=== PATIENT | female | born 1960 | race Caucasian/White ===

== ENCOUNTER 2022-07-03 11:05 | Emergency (ER) | payer BC, SELFPAY ==
--- NOTE | ~2022-07-03 | CT_ITS ---
EXAMINATION: CT BRAIN W/O DATE: 07/03/2022 11:50 INDICATION: Left facial droop TECHNIQUE: Computed tomography (CT) of the head was performed without intravenous contrast. The dose- length product was 605.33 mGy-cm. COMPARISON: No prior studies for comparison. FINDINGS: Normal brain parenchymal volume for age. Normal moscoso-white differentiation. No acute intrac ranial hemorrhage, infarction, mass or mass effect. No ventriculomegaly or midline shift. Midline sagittal images demonstrate a normal corpus callosum, c raniovertebral junction and sella turcica. Basilar cisterns are patent. Paranasal sinuses and mastoids are pneumatized. No depressed skull fractures. There are small partial ly calcified scalp nodules, likely sebaceous cysts. IMPRESSION: 1. No acute intracranial abnormality. Reviewed, dictated and finalized at location A. [facility]
--- NOTE | 2022-07-03 11:17 | ED.NEUROSD ---
HPI - Neuro Symptoms/Deficit General Chief Complaint: Neuro Symptoms/Deficit Stated Complaint: daksha Quezada side of face-possible stroke Time Seen by Provider: 07/03/22 11:15 History of Present Illness HPI Narrative: 61-year-old female patient presents to ER with complaints of facial droop on the left side upon waking up this morning. Patient states that for last week she has had some discomfort in the back of the head which she thought where her sinuses. She has had mild cough but no obvious runny nose or fever or chills. She denies any current headache. 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 Her double vision from the 6th nerve palsy has resolved. Patient denies any focal weakness of the arms legs or speech difficulty. She denies any trouble ambulating. Patient is up-to-date on her COVID vaccine. No exposure to COVID or flu is known at this time. Patient's past medical history is positive for hypertension. She also smokes half a pack of cigarettes a day. Related Data Home Medications Medication Instructions Recorded Confirmed atorvastatin 40 mg tablet 40 mg PO DAILY 07/03/22 07/03/22 estradiol 1 mg PO DAILY 07/03/22 07/03/22 sertraline 100 mg tablet (Zoloft) 100 mg PO DAILY 07/03/22 07/03/22 Allergies Allergy/AdvReac Type Severity Reaction Status Date / Time Penicillins Allergy Other Verified 07/03/22 11:28 Review of Systems Review of Systems: All systems reviewed & are unremarkable except as noted in HPI and below Constitutional: Constitutional: Reports no additional constitutional complaints, Denies chills, Denies fatigue, Denies fever(s) and Denies weakness Eyes: Eyes: Reports no additional eye complaints ENT: Reports as per HPI, Denies dysphagia, Denies vertigo, Denies dizziness, Denies epistaxis, Denies nasal congestion and Denies sore throat Cardiovascular: Cardiovascular: Reports no additional cardiovascular complaints Respiratory: Respiratory: Reports no additional respiratory complaints Gastrointestinal: Gastrointestinal: Reports no additional gastrointestinal complaints Genitourinary: Genitourinary: Reports no additional female genitourinary complaints Musculoskeletal: Musculoskeletal: Reports no additional musculoskeletal complaints Integumentary/Breasts: Skin/Breast: Reports system reviewed and no additional complaints, except as docu Neurologic: Reports system reviewed and no additional complaints, except as documented Psychiatric: Psychiatric: Reports no additional psychiatric complaints Endocrine: Endocrine: Reports no additional endocrine complaints Hematologic/Lymphatic: Hematologic/Lymphatic: Reports no additional hematologic/lymphatic complaints Allergic/Immunologic: Allergic/Immunologic: Reports no additional allergic/immunologic complaints PMFSH Past Medical History Medical History Hypertension Exam Narrative: Alert female patient who appears her stated age and is in no acute distress. Her vital signs are noted to be positive for a blood pressure 161/91 and a pulse rate of 76. Respiratory rate is 18 and temperature is 36.6?. SpO2 is 98% on room air. nurse monitoring shows a normal sinus rhythm. HEENT: atraumatic head. Patient has an obvious left facial droop. Patient also has constant uncontrollable shake of the head which has been there chronically. Apparently patient gets Botox injections for the same. Pupils are midsize and equal and reactive to light. Patient does have some weakness around her left periorbital and perioral and muscles. Ear nose throat are normal. Neck is supple. No carotid bruits. Chest wall is nontender. Heart tones are regular. Breath sounds are clear bilaterally. No retractions are noted. Abdomen is soft and
[2022-07-03 11:18] VITALS: BP 161/91; PULSE 76; RESP 18; TEMP 36.6; O2SAT 98
--- NOTE | 2022-07-03 11:52 | ECG_ITS ---
Measurements Intervals [place] Rate: 65 P: 53 MO: 167 QRS: -9 QRSD: 78 T: 39 QT: 392 QTc: 410 Interpretive Statements SINUS RHYTHM LOW QRS VOLTAGE IN PRECORDIAL LEADS INFERIOR INFARCT, AGE INDETERMINATE ABNORMAL ECG NO PREVIOUS ECG AVAILABLE FOR COMPARISON Electronically Signed On 07-03-2022 15:15:49 [employer] by Genaro Garcia D.O.
--- NOTE | 2022-07-03 12:10 | PC.NURSE ---
Pt was unable to state what blood pressure she is on, states her doctor changed it recently but has not picked it up yet, wanted to finish her amlodipine first, which she has and has yet to hot die picker new medicine which she does not know the name of, states she has not taken any blood pressure meds for the last few days. Pt's son was in room with pt right after arrival to the ED, pt was requesting water, pt and family both were educated that she needed to wait until testing done, in case surgical procedure needed. Son walked out of the exam room yelling, demanding water for the patient, the son was told once again she needed to wait, the son became very aggressive, yelling, walked out, stating he'll get her a bottle of water from the car. The patient then became very upset, stated he has mental issues, and that she had to leave, was very tearful. Staff was able to calm the patient down and continue with treatment and testing, patient's son is now outside waiting in their car.
[2022-07-03 12:15] VITALS: BP 126/80; PULSE 66; RESP 18; O2SAT 96
[2022-07-03 12:29] LABS: Basophils Absolute Auto 0.09 K/mm3 (0.00-0.10); Basophils Percent Auto 0.9 % (0.0-1.0); Eosinophils Absolute Auto 0.28 K/mm3 (0.02-0.50); Eosinophils Percent Auto 2.7 % (1.0-6.0); Hematocrit 36.5 % (35.0-49.0); Hemoglobin 11.4 g/dL (12.0-15.0); Immature Granulocyte Absolute 0.05 K/mm3 (0.00-0.00); Immature Granulocyte Percent A 0.5 % (0.0-0.0); Lymphocytes Absolute Auto 2.62 K/mm3 (1.10-4.50); Lymphocytes Percent Auto 25.5 % (18.0-42.0); Mean Corpuscular HGB Conc 31.2 g/dL (32.0-36.0); Mean Corpuscular Hemoglobin 25.9 pg (27.0-31.0); Mean Platelet Volume 9.7 fl (9.2-11.8); Monocytes Absolute Auto 0.82 K/mm3 (0.10-0.90); Neutrophils Absolute Auto 6.4 K/mm3 (1.7-7.2); Neutrophils Percent Auto 62.4 % (50.0-70.0); Platelet Count Result 385 K/mm3 (150-420); Red Cell Distribution Width 15.8 % (11.6-14.4); White Blood Count 10.3 K/mm3 (4.8-10.8)
[2022-07-03 12:30] LABS: Add Urine Microscopic? YES; Bilirubin Urine Negative (Negative); Blood Urine Negative (Negative); Color Urine Yellow (Yellow); Glucose Urine UA Negative (Negative); Ketones Urine Trace (Negative); Leukocyte Esterase Ur Trace LEU/UL (Negative); Nitrate Urine Negative (Negative); Protein Urine Negative (Negative); Specific Grav Ur >= 1.030 (1.010-1.020); Urobilinogen Urine 0.2 mg/dL (0.2-1.0); pH Urine 5.5 (5.0-8.0)
[2022-07-03 12:41] LABS: Partial Thromboplastin Time 27.1 SEC (23.90-30.70)
[2022-07-03 12:46] LABS: Alanine Aminotransferase 22 U/L (14-59); Albumin Level 3.6 g/dL (3.4-5.0); Alkaline Phosphatase 78 U/L (46-116); Anion Gap 8 mmol/L (8-16); Aspartate Amino Transferase 18 U/L (15-37); Bilirubin,Total 0.2 mg/dL (0.00-1.00); Blood Urea Nitrogen 9 mg/dL (7-18); Calcium 8.6 mg/dL (8.5-10.1); Carbon Dioxide 27 mmol/L (21-32); Chloride 102 mmol/L (98-108); Estimated CRCL calculation 83 ml/min; Estimated Glomerular Filt Rate > 60; Glucose 103 mg/dL (70-99); Osmolality Calculated 282 mOsm/kg (285-295); Potassium 3.9 mmol/L (3.5-5.1); Sodium 137 mmol/L (136-145); Total Protein 7.7 g/dL (6.4-8.2)
[2022-07-03 12:56] LABS: Troponin I < 4.0 ng/L (0.00-60.4)
[2022-07-03 13:07] LABS: Appearance Urine Cloudy (Clear); Calcium Oxalate Crystals Urine Many /hpf; Squamous Epithelial Cell Urine Many /hpf (Few); WBC Urine 0-3 /hpf (0-3)
[2022-07-03 13:08] LABS: Bacteria Urine 4+ /hpf
[2022-07-03 13:10] VITALS: BP 131/73; PULSE 64; RESP 18; O2SAT 95
[2022-07-03 13:30] VITALS: BP 131/73; PULSE 64; RESP 16; TEMP 36.9; O2SAT 98
[2022-07-12 15:28] LABS: Glucose Point of Care 104 mg/dl (65-105)
== END 2022-07-03 13:53 | disposition home or self-care (01) ==
PROVIDERS: Emergency Provider Emergency Medicine; PCP Nurse Practitioner Family
DX: G51.0 Bell's palsy (principal); I10 Essential (primary) hypertension; F17.210 Nicotine dependence, cigarettes, uncomplicated; Z79.899 Other long term (current) drug therapy
CPT/HCPCS: 36415; 70450; 80053; 81001; 82948; 84484; 85025; 85610; 85730; 93005; 99284

== ENCOUNTER 2024-08-03 02:23 | Emergency (ER) | payer MEDICAID, SELFPAY ==
[2024-08-03] VITALS (19 sets, daily range): BP systolic 111–173; BP diastolic 55–98; PULSE 96–111; RESP 20–28; TEMP 36.4–37; O2SAT 88–100
--- NOTE | ~2024-08-03 | CT_ITS ---
EXAMINATION: CT abdomen pelvis w con DATE: 08/03/2024 03:22 INDICATION: Low abdominal pain. TECHNIQUE: Computed tomography (CT) of the abdomen and pelvis was performed with 100 mL Omnipaque 350 intravenous contrast. Automated exposure control and iterative reconstruction technique were employe d. The dose-length product was 1353.45 mGy-cm. COMPARISON: None. FINDINGS: The visualized portions of the lung bases demonstrate mild atelectasis. A calcified left maria a ng nodules and calcified left hilar lymph nodes are consistent with old granulomatous disease. No ple ural effusion. The heart size is normal. There are coronary artery calcifications. No pericardial eff usion. There is a small sliding hiatal hernia. There are changes of gastric bypass procedure. Calcifi cations in the liver and spleen are consistent with old granulomatous disease. There are changes of c holecystectomy. The pancreas and adrenal glands are normal. There are cysts in right kidney measuring up to 2.1 cm. There is a 2 mm stone in right kidney. There is a delayed left-sided contrast nephrogr am. There is moderate left hydronephrosis. There is a 4 mm stone in proximal left ureter. There is di verticulosis of the colon without evidence of diverticulitis. The appendix is normal. There are no di lated loops of bowel. There are no pathologically enlarged lymph nodes. There is no free intraperiton eal fluid. There is severe lumbar spondylosis and moderate thoracic spondylosis. IMPRESSION: 1. 4 mm stone in proximal left ureter with moderate left hydronephrosis. 2. 2 mm nonobstructing right kidney stone. Reviewed, dictated and finalized at location A. OR OPERATIONS ANALYST
--- OUTSIDE RECORDS SUMMARY | 2024-08-03 02:26 | XMS_ITS | Referral Summary ---
Author Organization [facility] Address [address] [place] [address] Care Team Providers Care Ssis Architect Name Role Phone Nguyen Heath NP Primary Care Provider [phone] Ismael Moy MD Unavailable [phone] Encounters Date Type Department Care Team Description 08/01/2024 Telephone [facility] Primary Care at [address] [address] Nguyen Heath NP 07/31/2024 Orders Only [facility] Primary Care at [address] [phone] Nguyen Heath NP Iron deficiency anemia secondary to inadequate dietary iron intake (Primary Dx) 07/30/2024 10:14 AM CLEAN ENERGY POLICY ANALYST - 07/30/2024 11:59 PM CLEAN ENERGY POLICY ANALYST Hospital Encounter [address] [address] Prediabetes; Primary hypertension; Mixed hyperlipidemia Discharge Disposition: Discharge to home or self care 07/30/2024 10:15 AM CLEAN ENERGY POLICY ANALYST Lab [facility] Outpatient Lab at [address] [address] Primary hypertension (Primary Dx) 07/30/2024 9:30 AM CLEAN ENERGY POLICY ANALYST Office Visit [facility] Primary Care at [address] [id number] Nguyen Heath NP Annual physical exam (Primary Dx); Dupuytren's contracture; History of meningioma of the brain; Depression with anxiety; Primary hypertension; Mixed hyperlipidemia; Prediabetes; Centrilobular emphysema (HCC); Visit for screening mammogram; Mixed obsessional thoughts and acts; Benign head tremor from Last 3 Months Allergies Active Allergy Reactions Criticality Noted Date Comments Codeine Vomiting Low 08/24/2016 Metronidazole Itching Low 02/25/2021 Penicillin G Rash Medium 08/24/2016 Penicillins Rash Medium Medications aspirin 81 mg enteric coated tablet Take 1 tablet (81 mg total) by mouth daily 30 tablet 11 01/30/20 22 Active betamethasone dipropionate (DEL-BETA) 0.05 % cream Apply topically 2 (two) times a day as needed for irritation or rash 45 g 1 11/23/19 23 Active Additional Information Patient not taking.Reported on 07/30/2024 diphenhydrAMINE 25 mg capsule Take 1 tablet/capsule (25 mg total) by mouth every 6 (six) hours as needed for itching Active atorvastatin (LIPITOR) 20 mg tabletIndications: Mixed hyperlipidemia Take 1 tablet (20 mg total) by mouth daily 90 tablet 3 09/26/19 24 Active amLODIPine-benazep riL (LOTREL) 10-40 mg per capsule TAKE 1 CAPSULE BY MOUTH DAILY 90 capsule 3 01/08/20 24 025 Active estradioL (ESTRACE) 1 mg tablet TAKE 1 TABLET(1 MG) BY MOUTH DAILY 90 tablet 04/09/20 24 Active FLUoxetine (PROzac) 20 mg capsule Take 1 capsule (20 mg total) by mouth daily 90 capsule 1 07/30/19 25 026 Active fluticasone propion-salmeteroL (ADVAIR DISKUS) 250-50 mcg/dose diskus inhaler Inhale 1 puff 2 (two) times a day Rinse mouth with water after use. Do not swallow. 1 each 1 07/30/19 25 Active albuterol HFA (ProAir HFA) 90 mcg/actuation inhaler Inhale 2 puffs every 4 (four) hours as needed for wheezing or shortness of breath General albuterol inhaler that is covered by insurance. 8.5 g 1 07/30/19 25 026 Active ferrous sulfate 325 mg (65 mg of elemental iron) tabletIndications: Iron Deficiency Anemia Take 1 tablet (325 mg total) by mouth 2 (two) times a day after breakfast and dinner 60 tablet 3 07/31/19 25 Active LORazepam (ATIVAN) 0.5 mg tablet Take 1 tablet (0.5 mg total) by mouth 3 (three) times a day as needed for anxiety 30 tablet 1 09/22/19 23 025 Discontin ued(Thera py completed ) amitriptyline (ELAVIL) 25 mg tablet Take 2 tablets (50 mg total) by mouth nightly 180 tablet 1 11/23/19 23 025 Discontin ued(Patie nt Reported) albuterol HFA (ProAir HFA) 90 mcg/actuation inhaler Inhale 2 puffs every 4 (four) hours as needed for wheezing or shortness of breath General albuterol inhaler that is covered by insurance. 8.5 g 1 09/26/19 24 025 Discontin ued(Reord er) sertraline (ZOLOFT) 100 mg tablet Take 0.5 tablets (50 mg total) by mouth daily 45 tablet 1 09/26/19 24 025 Discontin ued(Thera py completed ) zolpidem CR (AMBIEN CR) 6.25 mg CR tabletIndications: Insomnia Take 1 tablet (6.25 mg total) by mouth nightly as needed for sleep 30 tablet 5 09/26/19 24 025 Discontin ued(Patie nt Reported) mupirocin (BACTROBAN) 2 % creamIndications:p eritoneal dialysis catheter care Apply topically 3 (three) times a day 30 g 09/26/19 24 025 Discontin ued(Patie nt Reported) fluticasone furoate-vilanteroL (Breo Ellipta) 200-25 mcg/dose diskus inhaler Inhale 1 puff daily Rinse mouth with water after use. Do not swallow. 28 each 5 09/26/19 24 025 Discontin ued(Thera py completed ) mupirocin (BACTROBAN) 2 % ointmentIndication s:Impetigo Apply topically 3 (three) times a day 22 g 09/26/19 24 025 Discontin ued(Amie nt Reported) Active Problems Problem Noted Date Diagnosed Date Centrilobular emphysema 07/30/2024 Assessment & Plan (07/30/2024 10:06 AM CLEAN ENERGY POLICY ANALYST): Went off daily inhaler due to cost. Restart advair. Continue albuterol prn History of meningioma of the brain 07/30/2024 Assessment & Plan (07/30/2024 10:05 AM CLEAN ENERGY POLICY ANALYST): Last MRI was 2022. Will order repeat MRI brain for surveillance she continues to have headaches, posterior/ occipital daily Dupuytren's contracture 07/30/2024 Assessment & Plan (07/30/2024 10:05 AM CLEAN ENERGY POLICY ANALYST): Left , 5th finger - referral to hand surgery, [place] Mixed obsessional thoughts and acts 07/30/2024 Assessment & Plan (07/30/2024 10:21 AM CLEAN ENERGY POLICY ANALYST): OCD actions have worsened per patient. States she has been on sertraline for over 25 years. Will discontinue sertraline having her decrease by 50 mg weekly. At the same time I will start her on fluoxetine 20 mg once daily. Have her follow-up in 4-6 weeks for med check Impetigo 09/26/2023 Assessment & Plan (09/26/2023 2:01 PM CDT): Gave her Septra b.i.d. for 10 days. Also gave her mupirocin to use topically. I asked her to contact me for lack of improvement in symptoms and rash Hormone replacement therapy (HRT) 03/02/2023 Assessment & Plan (03/02/2023 11:13 AM CDT): Risks and benefits of hormone replacement (HRT) for vasomotor symptoms related to menopause discussed. Patient aware risks associated with HRT include increased risk of blood clots, heart attack, stroke, and increased risk of breast cancer. As she has been on for 10 years it is my recommendation we start to try and wean. Plan to break 1 mg tab in half to .5 mg She was receptive to this plan and will update me with any concerns of return of symptoms. Family history of colon cancer in mother 023 Family history of colon cancer 11/24/2022 Personal history of colonic polyps 11/24/2022 Annual physical exam 11/24/2022 Assessment & Plan (07/30/2024 10:21 AM CLEAN ENERGY POLICY ANALYST): This was originally a physical. Health maintenance reviewed with her. Mammogram ordered. Referrals placed. Labs ordered Assessment & Plan (02/20/2023 10:29 AM CDT): -Recommended: Healthy diet. Avoiding junk food/fast food. -30 minutes of exercise most days of the week. Increase to 45 minutes for weight loss. Immunizations: Recommended Pneumovax 20, updated today, she will check her insurance on Shingrix increase physical activity, continue present plan, call if any problems Follow-up in 1 year. 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 We can do a slums exam at the next office visit. But we did discuss today that these medications may be a contributing factor Moss's palsy 07/20/2022 Assessment & Plan (02/20/2023 10:31 AM CDT): Improving. Having a lot less mouth through. Still having periodic headaches. She is going to go see her eye doctor about her vision changes in her left eye Assessment & Plan (11/22/2022 12:17 PM CDT): Improved. Specialist did not believe she had Kareem Webb, but has Moss's Palsy. She needs updated referral to Dr. De La Cruz. Assessment & Plan (08/18/2022 12:20 PM CLEAN ENERGY POLICY ANALYST): She is neurology follow-up next week with Dr. Reyes. Will refer to [facility] Dr. De La Cruz, ENT specialist, Assessment & Plan (07/20/2022 3:33 PM CLEAN ENERGY POLICY ANALYST): This is a new problem. Having quite a bit of pain around ear and back of head. She is already finished 60 mg of prednisone for 10 days and Valtrex. Will do another Medrol Dosepak. Start Lyrica 75 mg b.i.d.. Labs as ordered. At time of dictation her white count came back over 19 with elevated neutrophils. So we started doxycycline as well. She has contacted her neurologist and will make a follow-up appointment with him. Prediabetes 07/20/2022 Assessment & Plan (09/26/2023 1:59 PM CDT): Last A1c was 6%. Order given for labs at external lab to recheck. Assessment & Plan (11/22/2022 12:35 PM CDT): Stable. Continue to monitor hemoglobin A1c. Will repeat it in January with follow-up visit/ physical Assessment & Plan (07/20/2022 3:37 PM CLEAN ENERGY POLICY ANALYST): Stable. Recheck A1c Class 2 obesity with body ma ss index (BMI) of 36.0 to 36.9 in adult 07/20/2022 Assessment & Plan (11/22/2022 12:38 PM CDT): BMI Follow-up includes: exercise counseling. Assessment & Plan (07/20/2022 3:38 PM CLEAN ENERGY POLICY ANALYST): BMI Follow-up includes: nutrition counseling. Meningioma, cerebral 02/23/2022 Assessment & Plan (02/23/2022 12:06 PM CDT): MRI reviewed. I encouraged patient to let Dr. Liu know that her MRI has been done and results are available in epic. Also let him know that she is having more vision changes in the right as well. I also recommended that if she would have any new concerning symptoms such as loss of function or loss of eyesight that I would recommend that she go to [facility] if she can transfer there Acute intractable headache 01/28/2022 Assessment & Plan (02/01/2022 4:10 PM CDT): Try using ibuprofen instead of tylenol. May use ice/heat applied to side of head when you have the intense pain. Pt stated tramadol did not help with pain. MRI with contrast ordered. Referral to Dr. Amy shaw at [facility] Referral to ophthalmology Continue on increased losartan 100mg daily. Keep bp diary, but don't dave it. Check in the am and pm or if you feel weird . Pt to f/u with Nguyen next week Benign head tremor 06/22/2021 Assessment & Plan (07/30/2024 10:20 AM CLEAN ENERGY POLICY ANALYST): Head tremor is not new. Documented back to 2020. She does not think that it is worsened Assessment & Plan (06/22/2021 10:52 AM CLEAN ENERGY POLICY ANALYST): Will refer back to Neurology for new symptom of head tremor Gastroesophageal reflux disease 12/15/2020 Tubular adenoma of colon 12/15/2020 Family history of breast cancer in mother 2019 Arthritis of right acromioclavicular joint 05/27 Overview (05/27/2019): Added automatically from request for surgery [id number] Mixed hyperlipidemia 10/04/2018 Assessment & Plan (09/26/2023 1:59 PM CDT): Lipid abnormalities are stable, reviewed previous lipid levels in [facility]. Pharmacotherapy as ordered. Order for lipid panel was given today to be obtained. Pt voiced understanding of lab drawn and continuation of current medication regimen. Assessment & Plan (02/20/2023 10:31 AM CDT): Labs recently done last week. These were reviewed with her. Lipid panel is stable. Continue Lipitor 20 mg once daily. Assessment & Plan (11/22/2022 12:34 PM CDT): Continue Lipitor 20 mg once daily. Repeat labs in 3 months when I see her for annual physical in January Assessment & Plan (07/20/2022 3:21 PM CLEAN ENERGY POLICY ANALYST): Lipid abnormalities are stable, reviewed previous lipid levels in [facility]. Pharmacotherapy as ordered. Order for lipid panel was given today to be obtained. Pt voiced understanding of lab drawn and continuation of current medication regimen. Assessment & Plan (01/10/2022 11:39 AM CDT): Lipid abnormalities are stable, reviewed previous lipid levels in [facility]. Pharmacotherapy as ordered. Order for lipid panel was given today to be obtained. Pt voiced understanding of lab drawn and continuation of current medication regimen. Assessment & Plan (06/22/2021 11:04 AM CLEAN ENERGY POLICY ANALYST): Lipid abnormalities are stable. Pharmacotherapy as ordered. Lipids will be reassessed in 6 months. Assessment & Plan (12/08/2020 10:05 AM CDT): Lipid abnormalities are stable, reviewed previous lipid levels in [facility]. Pharmacotherapy as ordered. Order for lipid panel was given today to be obtained. Pt voiced understanding of lab drawn and continuation of current medication regimen. Assessment & Plan (08/20/2020 9:13 AM CLEAN ENERGY POLICY ANALYST): Lipid abnormalities are stable. Pharmacotherapy as ordered. Lipids will be reassessed in 6 months. Assessment & Plan (12/23/2019 1:50 PM CDT): Lipid abnormalities are stable. Pharmacotherapy as ordered. Lipids will be reassessed in 6 months. Assessment & Plan (05/13/2019 11:21 AM CLEAN ENERGY POLICY ANALYST): Last lipid panel 09/2018 and was WNL. Continue currently medication, lipitor 20mg. Tolerating ok. F/u 6 months Assessment & Plan (10/08/2018 9:49 AM CDT): Due for repeat lab work Basal ganglia degeneration with calcification Assessment & Plan (05/07/2018 1:59 PM CLEAN ENERGY POLICY ANALYST): Basal ganglia calcification seen on MRI - will refer to neurology for evaluation TIA (transient ischemic attack) 05/02/2018 Assessment & Plan (02/13/2022 6:07 PM CDT): Continue risk factor reduction. Continue atorvastatin. Work on diet, increase exercise, weight reduction. Will be scheduling f/u with Dr. Reyes, neurology Assessment & Plan (08/20/2020 9:14 AM CLEAN ENERGY POLICY ANALYST): History of. Remains on statin Assessment & Plan (05/02/2018 1:32 PM CLEAN ENERGY POLICY ANALYST): Hx htn, tobacco use (cigarettes) Differential includes TIA, CVA, migraines, tumor, EKG shows NSR, no change from previous EKG's. Labs as ordered. CT head as soon as can be preauth and scheduled Carotid US Chronic right-sided thoracic back pain 8 Assessment & Plan (05/02/2018 10:56 AM CLEAN ENERGY POLICY ANALYST): Has had for 9 months, points to one specific area, right lower lung area, states pressure over area makes it feel a little better. History of smoking 05/02/2018 Assessment & Plan (01/10/2022 5:09 PM CDT): Quit 1 1/2 years ago Has current bronchial cough. Gave albuterol inhaler to keep on hand, use prn. Will call if symptoms worsen Assessment & Plan (12/08/2020 10:08 AM CDT): Pt quit last April History of nonmelanoma skin cancer 10/02/2017 Seasonal allergic rhinitis 02/09/2017 Assessment & Plan (11/22/2022 12:32 PM CDT): Struggling with allergies. She is having some sinus headaches. We discussed [id number] medication such as Claritin D from the pharmacist and she may add Tylenol with that.. Assessment & Plan (12/23/2019 1:51 PM CDT): Will try adding singulair at bedtime and fluticasone nasal spray by rx, or may buy otc. Can try switching to zyrtec otc as well. Assessment & Plan (10/03/2017 10:37 AM CDT): Will treat for sinusitis today. Renew flonase. Try patanol for eye irritation. Also recommended otc eye drops for dry eye. Assessment & Plan (02/09/2017 10:17 AM CDT): May add claritin and fluticasone nasal spray once daily. 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 Has been stable. Will recheck CBC with labs Assessment & Plan (12/23/2019 1:49 PM CDT): Will recheck CBC. Pt states she is going to wait on labs as she doesn't have insurance but is hoping to get some later this year Assessment & Plan (05/13/2019 11:20 AM CLEAN ENERGY POLICY ANALYST): Using iron patches from the Internet. Will recheck cbc and iron panel today Assessment & Plan (12/10/2018 9:55 AM CDT): Continue oral iron. Will recheck iron panel and cbc today Assessment & Plan (10/08/2018 9:49 AM CDT): Recheck iron panel and cbc. Assessment & Plan (02/09/2017 10:06 AM CDT): Iron upsets her stomach and she doesn't take it. She tries to make up for it in diet. Primary hypertension 03/14/2013 Overview (09/30/2016): Hypertension Assessment & Plan (09/26/2023 1:59 PM CDT): Stable/ Improved. Blood pressure is adequately controlled on current medication. We will not make any medication changes today. Will have her follow-up in 6 months for continued monitoring and management Assessment & Plan (07/20/2022 3:21 PM CLEAN ENERGY POLICY ANALYST): Stable/ Improved. Blood pressure is adequately controlled on current medication. We will not make any medication changes today. Will have her follow-up in 6 months for continued monitoring and management Assessment & Plan (02/23/2022 12:03 PM CDT): Continue losartan 100 mg. Increase amlodipine to 10 mg once daily. Continue monitoring blood pressure and send me readings through my chart next week. Assessment & Plan (02/13/2022 6:09 PM CDT): Add amlodipine 5mg at bedtime. Continue to monitor blood pressure at home. F/u 1 month for recheck with home blood pressures Assessment & Plan (02/01/2022 4:11 PM CDT): Try using ibuprofen instead of tylenol. May use ice/heat applied to side of head when you have the intense pain. Pt stated tramadol did not help with pain. MRI with contrast ordered. Referral to Dr. Amy shaw at [facility] Referral to ophthalmology Continue on increased losartan 100mg daily. Keep bp diary, but don't dave it. Check in the am and pm or if you feel weird . Pt to f/u with Nguyen next week Assessment & Plan (01/10/2022 11:39 AM CDT): Stable/ Improved. Blood pressure is adequately controlled on current medication. We will not make any medication changes today. Will have her follow-up in 6 months for continued monitoring and management Assessment & Plan (06/22/2021 10:52 AM CLEAN ENERGY POLICY ANALYST): Stable/ Improved. Blood pressure is adequately controlled on current medication. We will not make any medication changes today. Will have her follow-up in 6 months for continued monitoring and management Assessment & Plan (12/08/2020 10:05 AM CDT): Stable/ Improved. Blood pressure is adequately controlled on current medication. We will not make any medication changes today. Will have her follow-up in 6 months for continued monitoring and management Assessment & Plan (08/20/2020 9:13 AM CLEAN ENERGY POLICY ANALYST): Stable on current medications. We will try to have her obtain labs if she is able to get insurance by later this year. Assessment & Plan (12/23/2019 1:50 PM CDT): Blood pressure is adequately controlled on current medication. We will not make any medication changes today. Will have her follow-up in 6 months for continued monitoring and management Assessment & Plan (05/13/2019 11:20 AM CLEAN ENERGY POLICY ANALYST): Hypertension is improving with treatment. Regular aerobic exercise. Stop smoking. Blood pressure will be reassessed at the next regular appointment. Assessment & Plan (12/10/2018 9:53 AM CDT): Hypertension is improving with treatment. Continue current medications. Blood pressure will be reassessed 6 months. Assessment & Plan (10/08/2018 9:47 AM CDT): Hypertension is worsening. Medication changes per orders. Blood pressure will be reassessed 2 months - she will be returning to area end of November. will have her return to recheck BP Increase Losartan to 50mg daily. Assessment & Plan (10/03/2017 10:36 AM CDT): Hypertension is improving with treatment. Continue current medications. Blood pressure will be reassessed at the next regular appointment. Assessment & Plan (02/09/2017 10:16 AM CDT): Blood pressure is running on lower side. We will try her without chlorthalidone and she checks her blood pressures at home. I advised she call for readings over 140/90 on a regular basis. Recheck BP in 1 month Depression with anxiety 02/07/2013 Overview (09/28/2016): Anxiety Assessment & Plan (07/30/2024 10:22 AM CLEAN ENERGY POLICY ANALYST): Depression is controlled. Anxiety is worsening. We are changing out the sertraline for fluoxetine and having her follow up in 4-6 weeks Assessment & Plan (02/20/2023 10:29 AM CDT): Improving on current medication. Continue sertraline 100 mg as ordered. May follow up in 6 months Assessment & Plan (08/18/2022 12:24 PM CLEAN ENERGY POLICY ANALYST): Improved. Continue sertraline 150 mg once daily. Assessment & Plan (07/20/2022 3:26 PM CLEAN ENERGY POLICY ANALYST): Worsening. Will increase sertraline to 150 mg once daily. Referral to psychiatry Assessment & Plan (01/10/2022 11:37 AM CDT): Will increase zoloft to 100mg daily. Gave suicide hotline number [phone]. Has gone to counseling in the past. Hx of OCD. Last time she went to counseling was 5 years ago. Contracts for safety. Encouraged to call if any problems/concerns. Will have her f/u in 4 weeks for recheck Assessment & Plan (08/20/2020 9:14 AM CLEAN ENERGY POLICY ANALYST): Currently stable on sertraline and quetiapine. Will continue current medications and have her follow-up in 6 months Assessment & Plan (05/13/2019 11:21 AM CLEAN ENERGY POLICY ANALYST): Continue zoloft and seroquel. Assessment & Plan (10/08/2018 9:48 AM CDT): Continue zoloft. We will add seroquel at bedtime to help with sleep. Assessment & Plan (10/03/2017 10:38 AM CDT): Has reduced down to 50mg daily. Doing well on that dose. Continue zoloft at 50mg. f/u 6 months Assessment & Plan (03/09/2017 10:54 AM CDT): Doing well with zoloft 100mg daily. She will f/u 6 months and as needed. She plans to continue traveling with her in the over the winter. Assessment & Plan (02/09/2017 10:16 AM CDT): Increase zoloft to 100mg daily. F/u 1 month for recheck. Eczema 07/28/2012 Insomnia 07/06/2012 Overview (07/14/2022): ambien serokevinl Assessment & Plan (09/26/2023 1:58 PM CDT): Stable/improved with Ambien. Will continue current medications. Assessment & Plan (02/20/2023 10:30 AM CDT): This is a chronic problem. States she had taken Restoril many years ago and realize that it was not helpful at all. She wants to try Ambien which we would also discussed. Will start with Ambien CR 6.25 mg nightly. I told her it does come in a 12 mg dose as well. Will start with number 30 and she can call for a refill. Assessment & Plan (11/22/2022 12:27 PM CDT): Ongoing, chronic: I had given her Restoril at the last office visit. He is currently on amitriptyline 25 mg 2 tablets at bedtime. We discussed using both verses trialing Restoril. The amitriptyline has not been helping very much for sleep. Using both may be too sedating. Patient voiced understanding. Will have her follow-up in 3 months Assessment & Plan (08/18/2022 12:20 PM CLEAN ENERGY POLICY ANALYST): Will refer to Sleep Medicine. Patient denies snoring but has frequent wakening. Will try Restoril 7.5 mg at bedtime. May continue amitriptyline 50 mg at bedtime. Assessment & Plan (12/23/2019 1:49 PM CDT): Chronic. Improving with seroquel. Will continue seroquel. Assessment & Plan (12/10/2018 9:54 AM CDT): Continue seroquel. Doing well Assessment & Plan (10/08/2018 9:48 AM CDT): Add seroquel at bedtime to help with sleep. Discussed dosage. She tried 200mg. I told her that seemed a little high as a starting dose. We will start at 100mg at bedtime. F/u end of November for recheck. Resolved Problems Problem Noted Date Diagnosed Date Resolved Date Simple chronic bronchitis 11/22/2022 Assessment & Plan (09/26/2023 2:26 PM CDT): History smoking. She is more difficulties with chronic cough and shortness of breaths seasonally. She restarts the Breo inhaler during the spring. Use albuterol p.r.n.. Renewed both today. Assessment & Plan (11/22/2022 12:34 PM CDT): Differential includes chronic bronchitis, GERD, DIANA inhibitor cough. She states the cough is dry and started last August. We started the DIANA inhibitor last February. She believes it is more allergy related. Patient is a former smoker as well. We have not had a PFT done. Plan: She does have an albuterol inhaler and states it does help when she uses it. So we will trial starting a steroid inhaler such as Breo Ellipta once daily. May continue albuterol p.r.n. Double vision 01/28/2022 11/22/2022 Assessment & Plan (02/01/2022 4:11 PM CDT): Try using ibuprofen instead of tylenol. May use ice/heat applied to side of head when you have the intense pain. Pt stated tramadol did not help with pain. MRI with contrast ordered. Referral to Dr. Amy shaw at [facility] Referral to ophthalmology Continue on increased losartan 100mg daily. Keep bp diary, but don't dave it. Check in the am and pm or if you feel weird . Pt to f/u with Nguyen next week Morbid obesity with BMI of 40.0-44.9, adult 01/10/2022 07/20/2022 Assessment & Plan (02/13/2022 6:00 PM CDT): BMI Follow-up includes: exercise counseling. Assessment & Plan (02/01/2022 7:35 AM CDT): HPI: Condition is not at/near goal goal BMI <30 A&P: Healthy, high-protein, lower carbohydrate, lower fat lifestyle and exercise for 150min/week recommended Recommend tracking everything you put in your mouth on an geni like Buzzni Lower carb substitutions: [employer] carries a zero net carb bread If you are looking for whole potatoes, like to use in soup or new potato shape/flavor, radishes are a great replacement If you are looking for mashed potatoes, riced cauliflower in the frozen bag section are a great replacement For pasta, try using zucchini noodles, lay them out on a cookie sheet and pat dry with a tea towel to try to remove as much moisture as possible. Heat your pasta sauce on the stove and put the noodles in for 30-45 seconds. If you leave them in much longer they will become mushy [place] and/or coconut flour instead of regular flour For pizza dough, try fathead pizza dough recipe online. To get a crispy crust, bake on one side for 8-12 min, then flip over and bake on the other side for 8-12 min, then put toppings on and bake until the cheese on top of pizza melts chaffles recipe online For ice cream, try the brand Enlightened To replace coffee creamer and make it low carb, use heavy creamer with sugar free Torani sweetener For chips, try Whisps or pork rinds For yogurt, try Two Good uzbek yogurt Use Leander for recipe ideas. Type in low carb... Hand Measurements: A fist or cupped hand = 1 cup 1 cup = 1 -2 servings of fruit juice 1 oz. of cold cereal 2 oz. of cooked cereal, rice or pasta 8 oz. of milk or yogurt A thumb = 1 oz. of cheese Consuming low-fat cheese helps you meet the required servings from the milk, yogurt and cheese group. 1 oz. of low-fat cheese counts as 8 oz. of milk or yogurt. Handful = 1-2 oz. of snack food Thumb tip = 1 teaspoon Keep high-fat foods, such as peanut butter and mayonnaise, at a minimum. One teaspoon is equal to the end of your thumb, from the knuckle up. Three teaspoons equals 1 tablespoon. Palm = 3 oz. of meat Choose lean poultry, fish, shellfish and beef. One palm size portion equals 3 oz. for an adult and 1 -2 oz. for a child under 5. 1 tennis ball or a fist= 1/2 cup of fruit and vegetables Healthy diets include a variety of colorful fruits and vegetables every day. The secret to serving size is in your hand. Snacking can add up. Remember, 1 handful equals 1 oz. of nuts and small candies. For chips and pretzels, 2 handfuls equals 1 oz. Because hand sizes vary, compare your fist size to an actual measuring cup. Assessment & Plan (01/10/2022 5:07 PM CDT): BMI Follow-up includes: exercise counseling. Chest pain 09/11/2021 01/10/2022 Assessment & Plan (09/11/2021 11:18 AM CDT): Chest wall pain, likely pleurisy. Will start steroid burst. Tramadol short term for pain. Pt is aware of warning signs of cardiac origin for which to go to ER. EKG shows NSR, Call for lack of improvement Hiatal hernia 01/15/2021 06/22/2021 Assessment & Plan (01/15/2021 3:47 PM CDT): The patient has a small sliding type hernia seen on CT scan. Because of her prior gastric bypass I am going to send her back down town where she had that surgery in the past. The surgery was about 14 years ago and she cannot quite remember who performed it. They may just need to close the crural defect but if any kind of revisional work needs to be done were just not set up for that here. The patient is in understanding and. Epigastric pain 12/15/2020 06/22/2021 Nausea and vomiting 12/15/2020 06/22/20 21 History of colonoscopy with polypectomy 12/15/2020 01/10/2022 Diarrhea 12/15/2020 06/22/2021 History of hernia repair 12/15/2020 Body mass index (BMI) of 39.0-39.9 in adult 12/15/2020 06/22/2021 Gastroesophageal reflux dise ase without esophagitis 12/08/2020 06/22/2021 Assessment & Plan (12/08/2020 10:09 AM CDT): Continue nexium. Refer to GI. Colonoscopy scheduled in Feb. Will refer for possible EGD at same time Family history of colon cancer in mother 12/04/2020 06/22/2021 Overview (12/04/2020): Added automatically from request for surgery [id number] Family history of colon canc er requiring screening colonoscopy 12/04/2020 06/22/2021 Overview (12/04/2020): Added automatically from request for surgery [id number] Hx of colonic polyps 12/04/2020 022 Overview (12/04/2020): Added automatically from request for surgery [id number] Intractable migraine with status migrainosus 0 06/22/2021 Assessment & Plan (02/17/2020 1:39 PM CDT): Given 60mg toradol IM in office and pt had much relief of her headache and neck pain. We had a conversation about her previous MRI results and future expectations. I told her that this headache is not related to the white matter changes seen on her previous MRI. Pt and her did recall that she bumped her head on a cabinet in late November. She recalled that it knocked her quite hard. I believe it's possible she has a mild concussion and subsequent migraine that has been exacerbated by her stress and anxiety over thinking that this is related to her MrI changes. Pt seemed much relieved by the end of the visit. I gave her toradol po with directions for use. I also gave her a short steroid taper to see if this helps with neck pain and dose. I asked her to call me if headache continues, does not improve. Impingement syndrome of right shoulder 05/27/2019 12/23/2019 Overview (05/27/2019): Added automatically from request for surgery [id number] Biceps tendinitis of right upper extremity 05/27/2019 12/23/2019 Overview (05/27/2019): Added automatically from request for surgery [id number] Mucopurulent chronic bronchitis 05/13/2019 12/23/2019 Assessment & Plan (05/13/2019 11:23 AM CLEAN ENERGY POLICY ANALYST): Will try doxycyline. If cough does not improve with a round of doxy, then discussed referral to e commerce retailer. Spell of generalized weakness 06/05/2018 01/10/2022 Vertigo 05/02/2018 08/20/2020 Acute cystitis with hematuria 02/28/2018 05/02/2018 Assessment & Plan (02/28/2018 10:02 AM CDT): Laboratory: Urine dipstick shows 2+ for hemoglobin, 2+ for leukocyte esterase and positive for nitrites. 1. Medications: ciprofloxacin 2. Maintain adequate hydration 3. Follow up if symptoms not improving, and prn. Pt mentioned after urine dip that she had been having urgency and frequency as well, which makes goes with UTI symptoms and urine dip. Will send for culture. Abnormal weight gain 10/03/2017 018 Assessment & Plan (10/03/2017 10:38 AM CDT): Check tsh today. Discussed salt intake. Possibly hidden in soup. Acute nonintractable headache 10/03/2017 12/10/2018 Assessment & Plan (10/03/2017 10:38 AM CDT): Due to allergies. Treat for sinusitis Acute non-recurrent frontal sinusitis 10/03/2017 02/28/2018 Assessment & Plan (10/03/2017 10:38 AM CDT): Treat with omnicef. May take otc sudafed as needed Cutaneous horn 10/02/2017 12/10/2018 Acute pain of left shoulder 06/05/2017 12/10/2018 Cervicalgia 06/05/2017 06/22/2021 Assessment & Plan (06/05/2017 2:29 PM CLEAN ENERGY POLICY ANALYST): Questioning that pain is radiating from her neck. She has an appointment pending with ortho on 06/20. I started her on diclofenac. She is to discontinue advil and aleve. May try flexeril. Discussed SE's, possible fatigue with flexeril. Tramadol for pain prn. Consider physical therapy, we'll let ortho see her first. Pt was agreeable with plan of care and f/u Recurrent ventral hernia 07/25/201603/2022 Overview (09/30/2016): Recurrent ventral hernia Assessment & Plan (12/08/2020 10:08 AM CDT): Having pain at previous surgery site - will refer back to surgery Hypokalemia 07/08/2015 08/20/2020 Overview (09/30/2016): Hypokalemia Assessment & Plan (02/28/2018 10:03 AM CDT): Hx hypokalemia. She was concerned since she was ill. She had labs drawn at [facility] in [facility] in [place]. We will try to obtain records. Reordered cbc, cmp today. Assessment & Plan (10/03/2017 10:37 AM CDT): Mild hypokalemia. Will recheck cmp today Assessment & Plan (02/09/2017 10:07 AM CDT): Has been trying to incoporate potassium rich foods in her diet. Likely due to chlorthalidone. We are going to try to stop the chlorthalidone today. Keratosis, senilis 02/23/2015 8 Skin neoplasm 01/03/2014 07/30/2024 Assessment & Plan (11/22/2022 12:16 PM CDT): HPI: History of basal cell carcinoma. She is a couple new lesions that she is found, 1 on her right forearm the 2nd on her left thigh. They both itch. Plan: I gave her some betamethasone cream for the itching. However will refer her back to Dermatology for evaluation and treatment of these lesions Actinic keratosis 01/03/2014 05/02/2018 Hernia of anterior abdominal wall 11/25/2013 09/02/2021 Overview (09/30/2016): Ventral hernia Right upper quadrant abdominal pain 04/15/2013 06/22/2021 Overview (09/30/2016): Right upper quadrant pain Assessment & Plan (12/08/2020 10:07 AM CDT): Hx multiple abdominal surgeries. Labs as ordered. Referral back to surgery Assessment & Plan (08/20/2020 9:18 AM CLEAN ENERGY POLICY ANALYST): Exam was negative. She no longer has a gallbladder. She believes it is muscular as it started after reaching for an object that was up high. She states that she will call us when she has insurance or if pain worsens for further workup Inflamed seborrheic keratosis 07/28/2012 06/22/2021 Immunizations Name Administration Dates Next Due Influenza, Quadrivalent, Spl it, Preservative Free, Intramuscular 06/22/2021,05/13/2019,03/23/2018,06/05 Influenza, Split 04/11/2013 Influenza, Unspecified 07/30/2024(Deferr ed: Patient Refused),07/30/2023(Deferred: Patient Refused),06/26/2023(Deferred: Patient Refused),07/30/2022(Deferred: Patient Refused),06/26/2022(Deferred: Patient Refused),02/23/2022(Deferred: Patient Refused),04/09/2020,03/26/2020(Deferre d: Patient Refused),03/26/2018 Moderna SARS-CoV-2 Monovalen t Vaccination (12+ YRS) 09/25/2020,08/28/2020 Pneumococcal Conjugate Pcv20 02/20/2023 Pneumococcal Polysaccharide PPV23 07/08/2015 Tdap 02/09/2022 Social History Tobacco Use Types Packs/Day Years Used Date Smoking Tobacco: Former Cigarettes 0.3 5 Smokeless Tobacco: Former Tobacco Cessation:Counseling Given: Not Answered Alcohol Use Standard Drinks/Week Comments No 0 (1 standard drink = 0.6 oz pur e alcohol) AUDIT-C Answer Date Recorded Q1: How often do you have a drink containing alcohol? Never 01/28/2022 Q2: How many drinks containi ng alcohol do you have on a typical day when you are drinking? Patient does not drink Q3: How often do you have si x or more drinks on one occasion? Never 01/28/2022 PHQ-2 Answer Date Recorded PHQ-2 Total Score (If total score is 3 or more points, staff should administer the PHQ-9) 0 07/30/2024 Personal Safety Answer Date Recorded Have you ever been in or are you currently in a harmful physical or emotional relationship or is someone making you feel afraid or unsafe? Denies 01/25/2023 Comments No Sex and Gender Information Value Date Recorded Sex Assigned at Not on file Legal Sex Female 7:18 AM CLEAN ENERGY POLICY ANALYST Gender Identity Not on file Sexual Orientation Straight 03/15/2021 1: 30 PM CDT Last Filed Vital Signs Vital Sign Reading Time Taken Comments Blood Pressure 114/84 07/30/2024 9:31 AM CLEAN ENERGY POLICY ANALYST Pulse 65 07/30/2024 9:31 AM CLEAN ENERGY POLICY ANALYST Temperature 36.8 C (98.2 F) 07/30/2024 9:31 AM CLEAN ENERGY POLICY ANALYST Respiratory Rate 16 07/30/2024 9:31 AM CLEAN ENERGY POLICY ANALYST Oxygen Saturation 99% 07/30/2024 9:31 AM CLEAN ENERGY POLICY ANALYST Inhaled Oxygen Concentration - - Weight 104.2 kg (229 lb 12.8 oz) 07/30/2024 9:31 AM CLEAN ENERGY POLICY ANALYST Height 165.1 cm (5' 5 ) 07/30/2024 9:31 AM CLEAN ENERGY POLICY ANALYST Body Mass Index 38.24 07/30/2024 9:31 AM CLEAN ENERGY POLICY ANALYST Plan of Treatment Not on file Medical Devices Implanted Type Area Woodwind Instrument Repairer Device Identifier Shelf Expiration Date Model / Serial / Lot Depuy Mitek [id number] Healix Advance Br Orthocord 4.5mm 3 [place] Suture Sterile Latex Free - [id number] Implanted:Qty: 1 on 06/05/2019 by Evangelist Rosales MD at [facility] Right: Shoulder Depuy Mitek 03/25/2022 [id number] / / [id number] [employer] Ar-[id number] Swivelock C 4.75mm 19.1mm Closed Eyelet Vent [place] Suture - [id number] Implanted:Qty: 1 on 06/05/2019 by Evangelist Rosales MD at [facility] Right: Shoulder [employer] 03/25/2021 [id number] / / [id number] Procedures Procedure Name Priority Date/Time Associated Diagnosis Comments EGFR Routine 07/30/2024 10:14 AM CLEAN ENERGY POLICY ANALYST Mixed hyperlipidemia DIFFERENTIAL AUTO Routine 07/30/2024 10:14 AM CLEAN ENERGY POLICY ANALYST Primary hypertension Mixed hyperlipidemia CBC WITH AUTO DIFFERENTIAL Routine 07/30/2024 10:14 AM CLEAN ENERGY POLICY ANALYST Primary hypertension Mixed hyperlipidemia COMPREHENSIVE METABOLIC PANEL Routine 07/30/2024 10:14 AM CLEAN ENERGY POLICY ANALYST Mixed hyperlipidemia LIPID PANEL Routine 07/30/2024 10:14 AM CLEAN ENERGY POLICY ANALYST Mixed hyperlipidemia THYROID FUNCTION CASCADE Routine 07/30/2024 10:14 AM CLEAN ENERGY POLICY ANALYST Primary hypertension HEMOGLOBIN A1C Routine 07/30/2024 10:14 AM CLEAN ENERGY POLICY ANALYST Prediabetes PAP AND HPV, REFLEX TO HPV GENOTYPES Routine 03/02/2023 10:43 AM CDT Well woman exam SCREENING MAMMOGRAM BILATERAL W TAWANDA Schedule Routine, Read Routine (OP Routine) 02/01/2023 1:15 PM CDT Screening mammogram, encounter for COLONOSCOPY 01/25/2023 8:36 AM CDT HEPATITIS C RNA, QUANTITATIVE, PCR Routine 05/27/2019 11:48 AM CLEAN ENERGY POLICY ANALYST Positive hepatitis C antibody test from Last 3 Months or Most Recently Relevant to Health Maintenance Results * eGFR (07/30/2024 10:14 AM CLEAN ENERGY POLICY ANALYST) eGFR >90 >=60 mL/min/1. 73 m2 Comment: Interpretive Data Reference Interval Normal >/= 90 mL/min/1.73m2 Mildly decreased* 60 - 89 mL/min/1.73m2 Mildly to moderately decreased 45 - 59 mL/min/1.73m2 Moderately to severely decreased 30 - 44 mL/min/1.73m2 Severely decreased 15 - 29 mL/min/1.73m2 Kidney Failure < 15 mL/min/1.73m2 *Relative to young adult level Estimated glomerular filtration rate is determined by the 2020 CKD-EPI equation recommended by the National Kidney Foundation (A Unifying Approach to GFR Estimation: Recommendations of the NKF-ASK Task Force on Reassessing the Inclusion of Race in Diagnosing Kidney Disease, JASN 2020). The CKD-EPI equation should not be used for patients with unstable renal function and has not been validated in children and those over 70. Current interpretive data was last reviewed 2021. Blood 07/30/2024 10:1 4 AM CLEAN ENERGY POLICY ANALYST 07/30/2024 3:17 PM CLEAN ENERGY POLICY ANALYST Nguyen Heath NP LAB BLOOD ORDERABLES Final Resul t [facility] [address] Department [place] [address] * (ABNORMAL) Differential, auto (07/30/2024 10:14 AM CLEAN ENERGY POLICY ANALYST) Neutrophil abs 5.3 1.5 - 6.5 K/cumm Imm gran abs 0.0 0.0 - 0.1 K/cumm [facility] Lymphocyte abs 2.4 0.8 - 3.3 K/cumm [facility] Monocyte abs 1.0(H) 0.2 - 0.8 K/cumm [facility] Eosinophil abs 0.2 0.0 - 0.5 K/cumm [facility] Basophil abs 0.1 0.0 - 0.1 K/cumm [facility] Neutrophil pct 58.9 % [facility] Comment: Interpretive Data Percent cell count reference ranges are not reported, since discordance with absolute values may lead to misinterpretation of CBC data. Current Interpretive Data was last revised on 2017. Imm gran pct 0.4 % [facility] Comment: Interpretive Data Percent cell count reference ranges are not reported, since discordance with absolute values may lead to misinterpretation of CBC data. Current Interpretive Data was last revised on 2017. Lymphocyte pct 26.1 % [facility] Comment: Interpretive Data Percent cell count reference ranges are not reported, since discordance with absolute values may lead to misinterpretation of CBC data. Current Interpretive Data was last revised on 2017. Monocyte pct 11.1 % [facility] Comment: Interpretive Data Percent cell count reference ranges are not reported, since discordance with absolute values may lead to misinterpretation of CBC data. Current Interpretive Data was last revised on 2017. Eosinophil pct 2.3 % [facility] Comment: Interpretive Data Percent cell count reference ranges are not reported, since discordance with absolute values may lead to misinterpretation of CBC data. Current Interpretive Data was last revised on 2017. Basophil pct 1.2 % [facility] Comment: Interpretive Data Percent cell count reference ranges are not reported, since discordance with absolute values may lead to misinterpretation of CBC data. Current Interpretive Data was last revised on 2017. Blood 07/30/2024 10:1 4 AM CLEAN ENERGY POLICY ANALYST 07/30/2024 3:08 PM CLEAN ENERGY POLICY ANALYST us Nguyen Heath NP LAB BLOOD ORDERABLES Final Resul t [facility] [address] Department [place] [address] * Thyroid Function [place] (07/30/2024 10:14 AM CLEAN ENERGY POLICY ANALYST) TSH 1.27 0.30 - 4.20 mcIUnit/mL Blood 07/30/2024 10:1 4 AM CLEAN ENERGY POLICY ANALYST 07/30/2024 3:08 PM CLEAN ENERGY POLICY ANALYST Nguyen Heath NP LAB BLOOD ORDERABLES Final Resul t Performing Organization Address City/[facility] Co de Phone Number [facility] [address] [address] * (ABNORMAL) CBC with auto differential (07/30/2024 10:14 AM CLEAN ENERGY POLICY ANALYST) WBC 9.0 3.8 - 9.9 K/cumm Hgb 9.9(L) 11.9 - 15.5 g/dL [facility] Hct 34.2(L) 35.6 - 45.5 % [facility] Plt 451(H) 150 - 400 K/cumm [facility] MPV 10.2 9.1 - 12.3 fL [facility] RBC 4.60 3.90 - 5.20 M/cumm [facility] MCV 74.3(L) 81.3 - 96.4 fL [facility] MCH 21.5(L) 27.1 - 33.3 pg [facility] MCHC 28.9(L) 32.3 - 35.7 g/dL [facility] RDW CV 17.9(H) 11.1 - 14.9 % [facility] RDW SD 47.4 35.7 - 48.1 fL [facility] NRBC abs 0.00 0.00 - 0.01 K/cumm [facility] Blood 07/30/2024 10:1 4 AM CLEAN ENERGY POLICY ANALYST 07/30/2024 3:08 PM CLEAN ENERGY POLICY ANALYST Nguyen Heath NP LAB BLOOD ORDERABLES Final Resul t Performing Organization Address City/[facility]/ZIP Co de Phone Number [facility] [address] [place] [address] * (ABNORMAL) Hemoglobin A1c (07/30/2024 10:14 AM CLEAN ENERGY POLICY ANALYST) Hgb A1C 5.9(H) 4.0 - 5.6 % Estimated Average Glucose 123 mg/dL [facility] Comment: The ADA recommends reporting an estimated Average Glucose (eAG) with all Hemoglobin A1c results using the equation derived from a study of 507 normal and diabetic adults. Minority populations were underrepresented and children were not included. (Diabetes Care 31:4586-9047, 2008). The eAG is not equivalent to a fasting glucose. Blood 07/30/2024 10:1 4 AM CLEAN ENERGY POLICY ANALYST 07/30/2024 3:08 PM CLEAN ENERGY POLICY ANALYST Nguyen Heath NP LAB BLOOD ORDERABLES Final Resul t [facility] [address] Department [place] [address] * (ABNORMAL) Lipid panel (07/30/2024 10:14 AM CLEAN ENERGY POLICY ANALYST) Cholesterol 212(H) 30 - 199 mg/dL Comment: Interpretive Data Ages < or = 19 years Acceptable: <170 mg/dL Borderline high: 170-199 mg/dL High: >or= 200 mg/dL Ages > or = 20 years Desirable: <200 mg/dL Borderline high: 200-239 mg/dL High: >or= 240 mg/dL Literature References: 1. Expert Panel on Integrated Guidelines for Cardiovascular Health and Risk Reduction in Children and Adolescents. Pediatrics 2011;128:S213 2. NCEP Expert Panel. Circulation 2004;110:227 Current Interpretive Data was last revised on 2018. Triglycerides 101 <=149 mg/dL [facility] Comment: Interpretive Data Ages < or = 9 years Acceptable: <75 mg/dL Borderline high: 75-99 mg/dL High: >or= 100 mg/dL Ages 10 to 20 years Acceptable: <90 mg/dL Borderline high: 90-129 mg/dL High: >or= 130 mg/dL Ages > or = 20 years Desirable: <150 mg/dL Borderline high: 150-199 mg/dL High: 200-499 mg/dL Very high: >or= 499 mg/dL Literature References: 1. Expert Panel on Integrated Guidelines for Cardiovascular Health and Risk Reduction in Children and Adolescents. Pediatrics 2011;128:S213 2. NCEP Expert Panel. Circulation 2004;110:227 Current Interpretive Data was last revised on 2018. HDL 70 >=40 mg/dL [facility] Comment: Interpretive Data Ages < or = 19 years Acceptable: >45 mg/dL Borderline low: 40-45 mg/dL Low: <40 mg/dL Ages > or = 20 years Desirable: >or= 60 mg/dL Low: <40 mg/dL Literature References: 1. Expert Panel on Integrated Guidelines for Cardiovascular Health and Risk Reduction in Children and Adolescents. Pediatrics 2011;128:S213 2. NCEP Expert Panel. Circulation 2004;110:227 Current Interpretive Data was last revised on 2018. LDL, calculated 124 <=129 mg/dL [facility] Comment: Interpretive Data Ages < or = 19 years Acceptable: <110 mg/dL Borderline high: 110-129 mg/dL High: >or= 130 mg/dL Ages > or = 20 years Optimal: <100 mg/dL Near optimal: 100-129 mg/dL Borderline high: 130-159 mg/dL High: >160 mg/dL Calculated using the Leonid LDL-C estimating equation. This equation was implemented on 2024. Prior to this date LDL-C was estimated using the Friedewald equation. Literature References: 1. Expert Panel on Integrated Guidelines for Cardiovascular Health and Risk Reduction in Children and Adolescents. Pediatrics 2011;128:S213 2. NCEP Expert Panel. Circulation 2004;110:227 3. Leonid Moya al. ALESSANDRA Cardiol. 2019October 24;5(5):540-548. doi: [email or web address] Current Interpretive Data was last revised on 2024. Non-HDL Cholesterol 142 mg/dL [facility] Comment: Interpretive Data Ages < or = 19 years Acceptable: <120 mg/dL Borderline high: 120-144 mg/dL High: >145 mg/dL Ages > or = 20 years When triglycerides are >200 mg/dL, Non-HDL cholesterol is a secondary target of therapy with treatment goals that are 30 mg/dL greater than the LDL cholesterol target. Literature References: 1. Expert Panel on Integrated Guidelines for Cardiovascular Health and Risk Reduction in Children and Adolescents. Pediatrics 2011;128:S213 2. NCEP Expert Panel. Circulation 2004;110:227 Current Interpretive Data was last revised on 2018. Chol/HDL ratio 3 [facility] Blood 07/30/2024 10:1 4 AM CLEAN ENERGY POLICY ANALYST 07/30/2024 3:08 PM CLEAN ENERGY POLICY ANALYST Nguyen Heath NP LAB BLOOD [place] [address] [address] Department [place] [address] * (ABNORMAL) Comprehensive metabolic panel (07/30/2024 10:14 AM CLEAN ENERGY POLICY ANALYST) Sodium 137 135 - 145 mmol/L Potassium, pl 3.9 3.3 - 4.9 mmol/L [facility] Chloride 102 97 - 110 mmol/L [facility] CO2 21(L) 22 - 32 mmol/L [facility] Anion gap 14 2 - 15 mmol/L [facility] BUN 10 6 - 25 mg/dL [facility] Creatinine 0.61 0.60 - 1.10 mg/dL [facility] Glucose 91 70 - 199 mg/dL [facility] Comment: Interpretive Data Fasting glucose >/= 126 mg/dl is diagnostic for diabetes. Fasting is defined as no caloric intake for at least 8 hours. Fasting glucose between 100 mg/dl to 125 mg/dl is diagnostic of prediabetes. In a patient with classic symptoms of hyperglycemia or hyperglycemic crisis, a random glucose >/= 200 mg/dl is diagnostic for diabetes. In the absence of unequivocal hyperglycemia, results should be confirmed by repeat testing. The classification and Diagnosis of Diabetes Diabetes Care 2021; 46: S19-S40. Current interpretive data was last revised 2022. Calcium 8.9 8.5 - 10.3 mg/dL [facility] Bilirubin, total 0.2 0.1 - 1.2 mg/dL [facility] Protein, pl 7.3 6.5 - 8.5 g/dL [facility] Albumin 4.1 3.5 - 5.0 g/dL [facility] Alk phos 75 40 - 130 Units/L [facility] ALT 18 7 - 45 Units/L [facility] AST 35 10 - 45 Units/L [facility] Blood 07/30/2024 10:1 4 AM CLEAN ENERGY POLICY ANALYST 07/30/2024 3:08 PM CLEAN ENERGY POLICY ANALYST us Nguyen Heath NP LAB BLOOD ORDERABLES Final Resul t [facility] [address] [place] [address] * Pap and HPV, reflex to HPV Genotypes (03/02/2023 10:43 AM CDT) CLINICAL INFORMATION: [facility] Comment:None given LMP [facility] Comment:NONE GIVEN Previous Pap [facility] Comment:NONE GIVEN Prev. Bx [facility] Comment:NONE GIVEN SOURCE: [facility] Comment:Cervix, Endocervix Pap, specimen adequacy [facility] Comment: Satisfactory for evaluation. Endocervical/transformation zone component present. HPV interp [facility] Comment: Cytology Results: Negative for intraepithelial lesion or malignancy. Senior Facilities Manager Que [facility] Comment: BKA, CT(ASCP) CT screening location: [place] [address] [place] [address] [facility] Comment: EXPLANATORY NOTE: The Pap is a screening test for cervical cancer. It is not a diagnostic test and is subject to false negative and false positive results. It is most reliable when a satisfactory sample, regularly obtained, is submitted with relevant clinical findings and history, and when the Pap result is evaluated along with historic and current clinical information. EFFECTIVE MAY 22, 2023, the version of ThinPrep you ordered, commonly known as manual ThinPrep, will be DISCONTINUED. An alternative form of ThinPrep, called ThinPrep Imaging, will continue to be available. For a copy of the client communication (TIS Client Letter) showing TIS test codes, see [email or web address], and navigate to [employer]>Physician Materials>TIS Client Letter. You can also call for test code assistance. Human papillomavirus DNA, High Risk E6/E7 Not Detected NOT DETECTED [employer] /Danika Chand [facility] Comment: Not Detected High Risk HPV types (16,18,31,33,35,39,45,51,52, 56,58,59,66,68) were not detected. Other HPV types which cause anogenital lesions may be present. The significance of the other types of HPV in malignant processes has not been established. Methodology: Real Time PCR Thin prep 03/02/2023 10:4 3 AM CDT 03/03/2023 2:36 AM CDT Tia Driscoll NITRATE OPERATOR LAB CYTOLOGY ORDERABLES Fin al Result [facility] [address] [place] [address] [employer]/Danika TamFormerly [facility] [address] [facility] [place] [address] * Screening Mammogram Bilateral [place] (02/01/2023 1:15 PM CDT) Anatomical Region Laterality Modality Breast Bilateral Mammography 02/01/2023 1:17 PM CDT Impressions 02/01/2023 1:17 PM CDT There is no mammographic evidence of malignancy. A 1 year screening mammogram is recommended. BI-RADS: 2 - Benign. The patient has been or will be contacted. The patient will be entered into a reminder system with a target due date of 1 year for her next mammogram. Electronically signed by: Christopher Lozano M.D. Narrative 02/01/2023 1:17 PM CDT EXAMINATION: SCREENING MAMMOGRAM BILATERAL W TAWANDA ORDERING HEALTHCARE PROVIDER: SELF SCREENING MAMMOGRAM HISTORY: Routine screening mammography. COMPARISON: 01/07/2022, 12/16/2020, 05/31/2019, 04/02/2018 TECHNIQUE: CC and MLO views of the bilateral breasts were obtained with digital technique using breast tomosynthesis with C view. Computer aided detection was utilized. FINDINGS: DENSITY: There are scattered fibroglandular elements in the bilateral breasts. BREASTS: There are stable postoperative findings in the left breast. There is no new suspicious findings in either breast on mammogram. us Self Screening Mammogram IMG MAMMO PROCEDURES Fi nal Result * COLONOSCOPY (01/25/2023 8:36 AM CDT) Anatomical Region Laterality Modality Other Narrative Procedure Note Amanda Anaya MD - 01/25/2023 8:36 AM CDT [facility] Patient Name: Yue Michelle Procedure Date: 01/25/2023 8:36 AM Date of : 1960 Admit Type: Outpatient Age: 62 Gender: Female Attending MD: Amanda Anaya M.D. Room: [facility] ENDOSCOPY ROOM 1 Note Status: Finalized Patient Profile: This is a 62 year old female. Her mother andbrother both had colon cancer. History of benign polypsbefore. Procedure: Colonoscopy Indications: Screening in patient at increased risk: Familyhistory of 1st-degree relative with colorectal cancerbefore age 60 years, High risk colon cancer surveillance: Personal history of colonic polyps, Lastcolonoscopy: February 2021 Referring MD: Laurence LozaNBrendon Providers: Amanda Anaya M.D. Impression: - The entire examined colon is normal overall. - Diverticulosis in the sigmoid colon. - Internal hemorrhoids. - No specimens collected. Recommendation: - Repeat colonoscopy in 4 years for screeningpurposes. - Continue present medications. Medicines: Monitored Anesthesia Care Complications: No immediate complications. Estimated Blood Loss: Estimated blood loss: none. Procedure: Pre-Anesthesia Assessment: - Prior to the procedure, a History and Physicalwas performed, and patient medications and allergieswere reviewed. The patient's tolerance of previous anesthesia was also reviewed. The risks andbenefits of the procedure and the sedation options and risks were discussed with the patient. All questions were answered, and informed consent was obtained. Prior Anticoagulants: The patient has taken noanticoagulant or antiplatelet agents. ASA Grade Assessment: Per anesthesia note and evaluation. After reviewing the risks and benefits, the patient was deemed in satisfactory condition to undergo the procedure. The benefits, risks and alternatives of theprocedure and sedation were discussed and informed consentwas obtained. All questions were answered. Please referto the signed informed consent document in the medical record. The bowel preparation used was Miralax and bisacodyl tablets via split dose instruction. The scope was passed under direct vision. The Pediatric Colonoscope [id number]-[id number] was introducedthrough the anus and advanced to the the cecum, identifiedby appendiceal orifice and ileocecal valve. Thequality of the bowel preparation was good. Bowel prep was administered using a split dose. Findings: The perianal and digital rectal examinations were normal. The cecum appeared normal. The colon (entire examined portion) appeared normal. No polyps and no mass lesions noted. Many medium-mouthed diverticula were found in the sigmoid colon. Internal hemorrhoids were found during retroflexion. The hemorrhoids were small. Electronically signed by Amanda Anaya M.D. Amanda Anaya M.D. 01/25/2023 10:22:21 AM Number of Addenda: 0 Note Initiated On: 01/25/2023 8:36 AM Procedure Code(s): --- Professional --- 50842, Colonoscopy, flexible; diagnostic, including collection of specimen(s) by brushing or washing, when performed (separateprocedure) Diagnosis Code(s): --- Professional --- Z80.0, Family history of malignant neoplasm of digestive organs Z86.010, Personal history of colonic polyps K64.8, Other hemorrhoids K57.30, Diverticulosis of large intestine without perforation orabscess without bleeding CPT copyright 2020 [employer]. All rights reserved. The codes documented in this report are preliminary and upon remote coders reviewmay be revised to meet current compliance requirements. Recognized by the [employer] for promoting quality in endoscopy Amanda Anaya MD ENDOSCOPY PROCEDURES Final Result * Hepatitis C (HCV) RNA PCR, quantitative (05/27/2019 11:48 AM CLEAN ENERGY POLICY ANALYST) HCV RNA qn Undetected Undetected IUnits/mL [facility] ([facility]) Comment: Result in log IU/mL is Undetected. ADDITIONAL INFORMATION The quantification range of this assay is 15 to 100,000,000 IU/mL (1.18 log to 8.00 log IU/mL). Testing was performed using the mando HCV test ([employer] with the mando [employer] System. Test Performed by: [place] [address] Claims Investigator: Huber Haney M.D. Ph.D.; CLIA# [id number] Blood specimen (specimen) 05/27/2019 11:48 AM CLEAN ENERGY POLICY ANALYST 05/27/2019 2:22 PM CLEAN ENERGY POLICY ANALYST Nguyen Heath NP LAB MICROBIOLOGY - GENERAL ORDER LUIS Final Result [facility] ([facility]) [address] [facility] Department [place] [address] from Last 3 Months or Most Recently Relevant to Health Maintenance Insurance [place] CHO[place] ID[place] Advance Directives For more information, please contact: [phone] * Full Code (Latest Code Status on File) Date Activated Date Inactivated Comments 01/25/2023 8:25 AM 01/25/2023 3:16 PM * Full Code Date Activated Date Inactivated Comments 01/25/2023 8:24 AM 01/25/2023 8:25 AM * Full Code Date Activated Date Inactivated Comments 01/28/2022 5:40 PM 01/29/2022 3:54 PM * Full Code Date Activated Date Inactivated Comments 06/07/2021 5:19 PM 06/09/2021 3:38 PM * Full Code Date Activated Date Inactivated Comments 02/25/2021 12:12 PM 02/25/2021 7:06 PM Care Teams Ssis Architect Relationship Specialty Start Date End Date Nguyen Heath NP PCP - General Family Medicine 11/22/17 Ismael Moy MD [address] [place] [address] [place] [address] Consulting Physician Neurology 01/29/22
--- OUTSIDE RECORDS SUMMARY | 2024-08-03 02:26 | XMS_ITS | Clinical Summary ---
Author Organization [facility] Address [address] [place] [address] Care Team Providers Care Ham Smoker Name Role Phone Nguyen Heath NP Primary Care Provider [phone] Ismael Moy MD Unavailable [phone] Allergies Active Allergy Reactions Criticality Noted Date [...] day 22 g 09/26/19 24 025 Discontin ued(Patie nt Reported) Active Problems Problem Noted Date Diagnosed Date Centrilobular emphysema 07/30/2024 Assessment & Plan (07/30/2024 10:06 AM [facility]): Went off daily inhaler due to cost. Restart advair. Continue albuterol prn History of meningioma of the brain 07/30/2024 Assessment & Plan (07/30/2024 10:05 AM [employer]): Last MRI was 2022. Will order repeat MRI brain for surveillance she continues to have headaches, posterior/ occipital daily Dupuytren's contracture 07/30/2024 Assessment & Plan (07/30/2024 10:05 AM [employer]): Left , 5th finger - referral to hand surgeryConor Mixed obsessional thoughts and acts 07/30/2024 Assessment & Plan (07/30/2024 10:21 AM [employer]): OCD actions have worsened per patient. States [...] 11/24/2022 Assessment & Plan (07/30/2024 10:21 AM [employer]): This was originally a physical. Health maintenance [...] PM CDT): Recommended she return to her automotive sales specialist for evaluation of the chronic left dry [...] Cruz. Assessment & Plan (08/18/2022 12:20 PM [employer]): She is neurology follow-up next week with Dr. Reyes. Will refer to [facility] Dr. De La Cruz, ENT specialist, Assessment & Plan (07/20/2022 3:33 PM [employer]): This is a new problem. Having quite [...] physical Assessment & Plan (07/20/2022 3:37 PM [employer]): Stable. Recheck A1c Class 2 obesity with body ma ss index (BMI) of 36.0 to 36.9 in adult 07/20/2022 Assessment & Plan (11/22/2022 12:38 PM CDT): BMI Follow-up includes: exercise counseling. Assessment & Plan (07/20/2022 3:38 PM [employer]): BMI Follow-up includes: nutrition counseling. Meningioma, cerebral [...] I would recommend that she go to [facility] if she can transfer there Acute intractable headache 01/28/2022 Assessment & Plan (02/01/2022 4:10 PM CDT): Try using ibuprofen instead of tylenol. May use ice/heat applied to side of head when you have the intense pain. Pt stated tramadol did not help with pain. MRI with contrast ordered. Referral to Dr. Amy shaw at [facility] Referral to ophthalmology Continue on increased losartan 100mg daily. Keep bp diary, but don't dave it. Check in the am and pm or if you feel weird . Pt to f/u with Nguyen next week Benign head tremor 06/22/2021 Assessment & Plan (07/30/2024 10:20 AM [employer]): Head tremor is not new. Documented back to 2020. She does not think that it is worsened Assessment & Plan (06/22/2021 10:52 AM [employer]): Will refer back to Neurology for new symptom of head tremor Gastroesophageal reflux disease 12/15/2020 Tubular adenoma of colon 12/15/2020 Family history of breast cancer in mother 2019 Arthritis of right acromioclavicular joint 05/27 Overview (05/27/2019): Added automatically from request for surgery [id number] Mixed hyperlipidemia 10/04/2018 Assessment & Plan (09/26/2023 1:59 PM CDT): Lipid abnormalities are stable, reviewed previous lipid levels in [facility]. Pharmacotherapy as ordered. Order for lipid [...] January Assessment & Plan (07/20/2022 3:21 PM [employer]): Lipid abnormalities are stable, reviewed previous lipid levels in [facility]. Pharmacotherapy as ordered. Order for lipid panel was given today to be obtained. Pt voiced understanding of lab drawn and continuation of current medication regimen. Assessment & Plan (01/10/2022 11:39 AM CDT): Lipid abnormalities are stable, reviewed previous lipid levels in [facility]. Pharmacotherapy as ordered. Order for lipid panel was given today to be obtained. Pt voiced understanding of lab drawn and continuation of current medication regimen. Assessment & Plan (06/22/2021 11:04 AM [employer]): Lipid abnormalities are stable. Pharmacotherapy as ordered. Lipids will be reassessed in 6 months. Assessment & Plan (12/08/2020 10:05 AM CDT): Lipid abnormalities are stable, reviewed previous lipid levels in [facility]. Pharmacotherapy as ordered. Order for lipid panel was given today to be obtained. Pt voiced understanding of lab drawn and continuation of current medication regimen. Assessment & Plan (08/20/2020 9:13 AM [employer]): Lipid abnormalities are stable. Pharmacotherapy as ordered. Lipids will be reassessed in 6 months. Assessment & Plan (12/23/2019 1:50 PM CDT): Lipid abnormalities are stable. Pharmacotherapy as ordered. Lipids will be reassessed in 6 months. Assessment & Plan (05/13/2019 11:21 AM [employer]): Last lipid panel 09/2018 and was WNL. Continue currently medication, lipitor 20mg. Tolerating ok. F/u 6 months Assessment & Plan (10/08/2018 9:49 AM CDT): Due for repeat lab work Basal ganglia degeneration with calcification Assessment & Plan (05/07/2018 1:59 PM [employer]): Basal ganglia calcification seen on MRI - will refer to neurology for evaluation TIA (transient ischemic attack) 05/02/2018 Assessment & Plan (02/13/2022 6:07 PM CDT): Continue risk factor reduction. Continue atorvastatin. Work on diet, increase exercise, weight reduction. Will be scheduling f/u with Dr. Reyes, neurology Assessment & Plan (08/20/2020 9:14 AM [employer]): History of. Remains on statin Assessment & Plan (05/02/2018 1:32 PM [employer]): Hx htn, tobacco use (cigarettes) Differential includes TIA, CVA, migraines, tumor, EKG shows NSR, no change from previous EKG's. Labs as ordered. CT head as soon as can be preauth and scheduled Carotid US Chronic right-sided thoracic back pain 8 Assessment & Plan (05/02/2018 10:56 AM [employer]): Has had for 9 months, points to [...] is having some sinus headaches. We discussed [id number]-[id number]-lilirkm medication such as Claritin D from the [...] deficiency Assessment & Plan (07/20/2022 3:21 PM [employer]): History of. Has been stable. Will recheck CBC with labs Assessment & Plan (12/23/2019 1:49 PM CDT): Will recheck CBC. Pt states she is going to wait on labs as she doesn't have insurance but is hoping to get some later this year Assessment & Plan (05/13/2019 11:20 AM [employer]): Using iron patches from the Internet. Will [...] management Assessment & Plan (07/20/2022 3:21 PM [employer]): Stable/ Improved. Blood pressure is adequately controlled [...] ordered. Referral to Dr. Amy shaw at [facility] Referral to ophthalmology Continue on increased losartan [...] management Assessment & Plan (06/22/2021 10:52 AM [employer]): Stable/ Improved. Blood pressure is adequately controlled [...] management Assessment & Plan (08/20/2020 9:13 AM [employer]): Stable on current medications. We will try [...] management Assessment & Plan (05/13/2019 11:20 AM [employer]): Hypertension is improving with treatment. Regular aerobic [...] Anxiety Assessment & Plan (07/30/2024 10:22 AM [employer]): Depression is controlled. Anxiety is worsening. We are changing out the sertraline for fluoxetine and having her follow up in 4-6 weeks Assessment & Plan (02/20/2023 10:29 AM CDT): Improving on current medication. Continue sertraline 100 mg as ordered. May follow up in 6 months Assessment & Plan (08/18/2022 12:24 PM [employer]): Improved. Continue sertraline 150 mg once daily. Assessment & Plan (07/20/2022 3:26 PM [employer]): Worsening. Will increase sertraline to 150 mg [...] recheck Assessment & Plan (08/20/2020 9:14 AM [employer]): Currently stable on sertraline and quetiapine. Will continue current medications and have her follow-up in 6 months Assessment & Plan (05/13/2019 11:21 AM [employer]): Continue zoloft and seroquel. Assessment & Plan [...] recheck. Eczema 07/28/2012 Insomnia 07/06/2012 Overview (07/14/2022): ambwu seroquel Assessment & Plan (09/26/2023 1:58 PM CDT): [...] months Assessment & Plan (08/18/2022 12:20 PM [employer]): Will refer to Sleep Medicine. Patient denies [...] ordered. Referral to Dr. Amy shaw at [facility] Referral to ophthalmology Continue on increased losartan [...] in your mouth on an geni like Privepass Lower carb substitutions: [employer]i carries a zero [...] in much longer they will become mushy Farber and/or coconut flour instead of regular flour [...] pork rinds For yogurt, try Two Good guatemalan yogurt Use Pinterest for recipe ideas. Type in low carb... [...] (12/04/2020): Added automatically from request for surgery [id number] Family history of colon canc er requiring screening colonoscopy 12/04/2020 06/22/2021 Overview (12/04/2020): Added automatically from request for surgery [id number] Hx of colonic polyps 12/04/2020 022 Overview (12/04/2020): Added automatically from request for surgery [id number] Intractable migraine with status migrainosus 0 06/22/2021 [...] (05/27/2019): Added automatically from request for surgery [id number] Biceps tendinitis of right upper extremity 05/27/2019 12/23/2019 Overview (05/27/2019): Added automatically from request for surgery [id number] Mucopurulent chronic bronchitis 05/13/2019 12/23/2019 Assessment & Plan (05/13/2019 11:23 AM [employer]): Will try doxycyline. If cough does not improve with a round of doxy, then discussed referral to [facility]. Spell of generalized weakness 06/05/2018 01/10/2022 Vertigo [...] 06/22/2021 Assessment & Plan (06/05/2017 2:29 PM [employer]): Questioning that pain is radiating from her [...] was ill. She had labs drawn [facility] [place]. We will try to obtain records. Reordered [...] surgery Assessment & Plan (08/20/2020 9:18 AM [employer]): Exam was negative. She no longer has a gallbladder. She believes it is muscular as it started after reaching for an object that was up high. She states that she will call us when she has insurance or if pain worsens for further workup Inflamed seborrheic keratosis 07/28/2012 06/22/2021 Encounters Date Type Department Care Team Description 08/01/2024 Telephone [facility] Primary Care at [address] [phone] Nguyen Heath NP 07/31/2024 Orders Only [facility] Primary Care at [address] [phone] Nguyen Heath NP Iron deficiency anemia secondary to inadequate dietary iron intake (Primary Dx) 07/30/2024 10:15 AM [facility] Lab [facility] Outpatient Lab at [address] [phone] Primary hypertension (Primary Dx) 07/30/2024 10:14 AM [employer] [facility] - 07/30/2024 11:59 PM [facility] Hospital Encounter [address] [address] Prediabetes; Primary hypertension; Mixed hyperlipidemia Discharge Disposition: Discharge to home or self care 07/30/2024 9:30 AM [employer] Office Visit [facility] Primary Care at [address] [phone] Nguyen Heath NP Annual physical exam (Primary Dx); Dupuytren's contracture; History of meningioma of the brain; Depression with anxiety; Primary hypertension; Mixed hyperlipidemia; Prediabetes; Centrilobular emphysema (HCC); Visit for screening mammogram; Mixed obsessional thoughts and acts; Benign head tremor from Last 3 Months Immunizations Name Administration Dates Next Due Influenza, Quadrivalent, Spl it, Preservative Free, Intramuscular 06/22/2021,05/13/2019,03/23/2018,06/05 Influenza, Split 04/11/2013 Influenza, Unspecified 07/30/2024(Deferr ed: Patient Refused),07/30/2023(Deferred: Patient Refused),06/26/2023(Deferred: Patient Refused),07/30/2022(Deferred: Patient Refused),06/26/2022(Deferred: Patient Refused),02/23/2022(Deferred: Patient Refused),04/09/2020,03/26/2020(Deferre d: Patient Refused),03/26/2018 Moderna SARS-CoV-2 Monovalen t Vaccination (12+ YRS) 09/25/2020,08/28/2020 Pneumococcal Conjugate Pcv20 02/20/2023 Pneumococcal Polysaccharide PPV23 07/08/2015 Tdap 02/09/2022 Surgical History Surgery Date Site/Laterality Comments OTHER SURGICAL HISTORY 06/26/1984 - 06/25/1985 : induced TUBAL LIGATION 06/26/1989 - 06/25/1990 OOPHORECTOMY 06/26/1997 - 06/25/1998 Right CARPAL TUNNEL RELEASE Bilateral GASTRIC BYPASS 06/26/2009 - 06/25/2010 HYSTERECTOMY 06/26/2012 - 06/25/2013 L oophorectomy BREAST BIOPSY 06/26/1999 - 06/25/2000 Left benign surgical bx COLONOSCOPY 03/26/2015 - 04/25/2015 DUPUYTREN CONTRACTURE RELEASE 06/26/2016 - 06/25/2017 VENTRAL HERNIA REPAIR 06/26/2013 - 06/25/2014 SOFT TISSUE CYST EXCISION 06/26/2012 - 06/25/2013 retroperitoneal LAPAROSCOPIC CHOLECYSTECTOMY 06/26/2007 - 06/25/2008 ROTATOR CUFF REPAIR 06/26/2018 - 06/25/2019 Right UPPER GASTROINTESTINAL ENDOSCOPY COLONOSCOPY 02/24/2021 - 03/25/2021 COLONOSCOPY 01/25/2023 BARIATRIC SURGERY 2010 Medical History Medical History Date Comments Hiatal hernia GERD (gastroesophageal reflux disease) OCD (obsessive compulsive disorder) Hypertension Hyperlipidemia History of colonoscopy with polypectomy 12/15/2020 Hx of colonic polyps 12/04/2020 Added autom atically from request for surgery [id number] Spell of generalized weakness 06/05/2018 Family History Medical History Relation Name Comments Cancer Brother Humberto Mock Colon cancer Brother Humberto Mock Cancer, colon; Coronary artery disease Father Carla Mock Co ronary artery disease, premature; Heart disease Father Carla Mock Heart diseas e; Hyperlipidemia Father Carla Mock Hyperlipide navin; Hypertension Father Carla Mock Hypertension; Breast cancer Maternal Grandmother Cancer , breast; Breast cancer Mother Mila Mock Cancer -breas t; Cancer Mother Mila Mock Colon cancer Mother Mila Mock Cancer -colon; Esophageal cancer Mother Mila Mock Cancer, e sophageal; Osteoporosis Mother Mila Mock Osteoporosis; Breast cancer Mother's Sister Cancer, javon ast; Cancer Other 1 Family history of Cancer; Heart disease Other 2 Family history of Heart disease; Hypertension Other 3 Family history of Hypertension; Diabetes Other 4 Family history of Diabetes mellitus; Ovarian cancer Neg Hx Thyroid cancer Neg Hx Relation Name Status Comments Brother Humberto Mock Father Carla Mock Maternal Grandmother Mother Mila Mock Mother's Sister Other 1 Other 2 Other 3 Other 4 Social History Tobacco Use Types Packs/Day Years [...] on file Legal Sex Female 7:18 AM [employer] [facility] Gender Identity Not on file Sexual Orientation Straight 03/15/2021 1: 30 PM CDT Obstetrics History Para Term AB IAB SAB Ectopic Multiple Livin g Live Births 3 2 2 1 1 2 2 Date Outcome GA Total Labor Labor/2nd/3rd Weight Sex Type Anes PTL Shell A1 A5 Name Clin IAB 1986 Term 40w 0d M N Living 1989 Term 40w 0d M Vag-S pont N Living Complications:None Last Filed Vital Signs Vital Sign Reading Time Taken Comments Blood Pressure 114/84 07/30/2024 9:31 AM [employer] [employer] [facility] Pulse 65 07/30/2024 9:31 AM [employer] Temperature 36.8 C (98.2 F) 07/30/2024 9:31 AM [employer] [facility] Respiratory Rate 16 07/30/2024 9:31 AM [employer] [employer] [facility] Oxygen Saturation 99% 07/30/2024 9:31 AM [employer] [employer] [facility] Inhaled Oxygen Concentration - - Weight 104.2 kg (229 lb 12.8 oz) 07/30/2024 9:31 AM [employer] [employer] [facility] Height 165.1 cm (5' 5 ) 07/30/2024 9:31 AM [employer] [facility] Body Mass Index 38.24 07/30/2024 9:31 AM [employer] [facility] Plan of Treatment Health Maintenance Due Date Last Done Comments Hepatitis B Screening 1980 Zoster Vaccine (1 of 2) 2012 Breast Cancer Screening-Mammogram 02/02/2024 02/01/2023, 01/07/2022, 12/16/2020, Additional history exists Covid-19 Vaccine ( season) 2024 07/07/2021, 09/25/2020, 08/28/2020 Influenza Vaccine (#1) 2024 , 04/09/2020, 05/13/2019, Additional history exists Postponed from 02/25/2024 (Patient declined, but will receive in the future) Depression Screening 07/30/2025 07/30/2024, 09/26/2023, 03/02/2023, Additional history exists Regular Well Visit/Exam 18-64 07/30/2025 07/30/2024, 03/02/2023, 02/20/2023, Additional history exists Colon Cancer Screening-Colonoscopy 01/25/2027 01/25/2023, 01/25/2023, 02/25/2021, Additional history exists DTaP/Tdap/Td Vaccine (2 - Td or Tdap) 02/10/2032 02/09/2022 Hepatitis C Screening Completed 05/27/2019, 019 Colon Cancer Screening-CT Colonography Discontinued 01/25/2023, 01/25/2023, 02/25/2021, Additional history exists Colon Cancer Screening-DNA Stool Discontinued 01/25/2023, 01/25/2023, 02/25/2021, Additional history exists Colon Cancer Screening-FIT Discontinued 01/25, 01/25/2023, 02/25/2021, Additional history exists Colon Cancer Screening-Sigmoidoscopy Discontinued 01/25/2023, 01/25/2023, 02/25/2021, Additional history exists Pneumococcal vaccine <65 Completed 02/20/2023, 06/26 Cervical Cancer Screening Discontinued 2022, 02/17/2022, 10/03/2018 Medical Devices Implanted Type Area Commercial Real Estate Assistant Device Identifier Shelf Expiration Date Model / Serial / Lot Depuy Mitek [id number] Healix Advance Br Orthocord 4.5mm 3 [place] Suture Sterile Latex Free - [id number] Implanted:Qty: 1 on 06/05/2019 by Evangelist Rosales MD at [facility] Right: Shoulder Depuy Mitek 03/25/2022 [id number] / / [id number] [employer] [id number] Swivelock C 4.75mm 19.1mm Closed Eyelet Vent [place] Suture - [id number] Implanted:Qty: 1 on 06/05/2019 by Evangelist Rosales MD at [facility] Right: Shoulder [employer] 03/25/2021 [id number] / / [id number] Procedures Procedure Name Priority Date/Time Associated Diagnosis Comments EGFR Routine 07/30/2024 10:14 AM [facility] Mixed hyperlipidemia DIFFERENTIAL AUTO Routine 07/30/2024 10:14 AM [employer] Primary hypertension Mixed hyperlipidemia CBC WITH AUTO DIFFERENTIAL Routine 07/30/2024 10:14 AM [employer] Primary hypertension Mixed hyperlipidemia COMPREHENSIVE METABOLIC PANEL Routine 07/30/2024 10:14 AM [employer] Mixed hyperlipidemia LIPID PANEL Routine 07/30/2024 10:14 AM [employer] Mixed hyperlipidemia THYROID FUNCTION CASCADE Routine 07/30/2024 10:14 AM [employer] Primary hypertension HEMOGLOBIN A1C Routine 07/30/2024 10:14 AM [employer] Prediabetes PAP AND HPV, REFLEX TO HPV GENOTYPES Routine 03/02/2023 10:43 AM CDT Well woman exam SCREENING MAMMOGRAM BILATERAL W TAWANDA Schedule Routine, Read Routine (OP Routine) 02/01/2023 1:15 PM CDT Screening mammogram, encounter for COLONOSCOPY 01/25/2023 8:36 AM CDT HEPATITIS C RNA, QUANTITATIVE, PCR Routine 05/27/2019 11:48 AM [employer] [facility] Positive hepatitis C antibody test from Last 3 Months or Most Recently Relevant to Health Maintenance Results * eGFR (07/30/2024 10:14 AM SP[employer]) eGFR >90 >=60 mL/min/1. 73 m2 Comment: [...] of Race in Diagnosing Kidney Disease, JASN 202). The CKD-EPI equation should not be used for patients with unstable renal function and has not been validated in children and those over 70. Current interpretive data was last reviewed 2021. Blood 07/30/2024 10:1 4 AM [employer] [facility] 07/30/2024 3:17 PM [employer] us Nguyen Heath NP LAB BLOOD ORDERABLES Final Resul t [facility] [id number] Department [place] [address] * (ABNORMAL) Differential, auto (07/30/2024 10:14 AM [employer]) Neutrophil abs 5.3 1.5 - 6.5 K/cumm Imm gran abs 0.0 0.0 - 0.1 K/cumm [facility] Lymphocyte abs 2.4 0.8 - 3.3 K/cumm [facility] Monocyte abs 1.0(H) 0.2 - 0.8 K/cumm [facility] Eosinophil abs 0.2 0.0 - 0.5 K/cumm [facility] Basophil abs 0.1 0.0 - 0.1 K/cumm [facility] Neutrophil pct 58.9 % [facility] Comment: Interpretive Data Percent cell count reference ranges are not reported, since discordance with absolute values may lead to misinterpretation of CBC data. Current Interpretive Data was last revised on 2017. Imm gran pct 0.4 % [facility] Comment: Interpretive Data Percent cell count reference ranges are not reported, since discordance with absolute values may lead to misinterpretation of CBC data. Current Interpretive Data was last revised on 2017. Lymphocyte pct 26.1 % [facility] Comment: Interpretive Data Percent cell count reference ranges are not reported, since discordance with absolute values may lead to misinterpretation of CBC data. Current Interpretive Data was last revised on 2017. Monocyte pct 11.1 % [facility] Comment: Interpretive Data Percent cell count reference ranges are not reported, since discordance with absolute values may lead to misinterpretation of CBC data. Current Interpretive Data was last revised on 2017. Eosinophil pct 2.3 % [facility] Comment: Interpretive Data Percent cell count reference ranges are not reported, since discordance with absolute values may lead to misinterpretation of CBC data. Current Interpretive Data was last revised on 2017. Basophil pct 1.2 % [facility] Comment: Interpretive Data Percent cell count reference ranges are not reported, since discordance with absolute values may lead to misinterpretation of CBC data. Current Interpretive Data was last revised on 2017. Blood 07/30/2024 10:1 4 AM [facility] 07/30/2024 3:08 PM [employer] us Nguyen Heath NP LAB BLOOD ORDERABLES Final Resul t [facility] [id number] [facility] [place] [address] * Thyroid Function [place] (07/30/2024 10:14 AM SP[employer]) Pathologist [facility] TSH 1.27 0.30 - 4.20 mcIUnit/mL Blood 07/30/2024 10:1 4 AM [employer] 07/30/2024 3:08 PM [employer] Nguyen Heath NP LAB BLOOD ORDERABLES Final Resul t Performing Organization Address [facility] de Phone Number [facility]MANN [id number] [facility] [place] [address] * (ABNORMAL) CBC with auto differential (07/30/2024 10:14 AM SP[employer]) Pathologist [facility] WBC 9.0 3.8 - 9.9 K/cumm Hgb 9.9(L) 11.9 - 15.5 g/dL [facility] Hct 34.2(L) 35.6 - 45.5 % [facility] CH Plt 451(H) 150 - 400 K/cumm [facility] MPV 10.2 9.1 - 12.3 fL [facility] RBC 4.60 3.90 - 5.20 M/cumm [facility] MCV 74.3(L) 81.3 - 96.4 fL [facility] MCH 21.5(L) 27.1 - 33.3 pg [facility] MCHC 28.9(L) 32.3 - 35.7 g/dL [facility] RDW CV 17.9(H) 11.1 - 14.9 % [facility] RDW SD 47.4 35.7 - 48.1 fL [facility] NRBC abs 0.00 0.00 - 0.01 K/cumm [facility] Blood 07/30/2024 10:1 4 AM [employer] 07/30/2024 3:08 PM [employer] us Nguyen Heath NP LAB BLOOD ORDERABLES Final Resul t Performing Organization Address [facility] de Phone Number [facility]MANN [id number] Department [place] [address] * (ABNORMAL) Hemoglobin A1c (07/30/2024 10:14 AM [employer]) Hgb A1C 5.9(H) 4.0 - 5.6 % Estimated Average Glucose 123 mg/dL [facility] Comment: The ADA recommends reporting an estimated Average Glucose (eAG) with all Hemoglobin A1c results using the equation derived from a study of 507 normal and diabetic adults. Minority populations were underrepresented and children were not included. (Diabetes Care 31:1577-2275, 2008). The eAG is not equivalent to a fasting glucose. Blood 07/30/2024 10:1 4 AM [employer] 07/30/2024 3:08 PM [employer] Nguyen Heath NP LAB BLOOD ORDERABLES Final Resul t [facility] [id number] [address] Department [place] [address] * (ABNORMAL) Lipid panel (07/30/2024 10:14 AM SPIRAL SPRING WINDER) Cholesterol 212(H) 30 - 199 mg/dL Comment: [...] on 2018. HDL 70 >=40 mg/dL BRIDGETTE HARTMANN Comment: Interpretive Data Ages [...] 2018. LDL, calculated 124 <=129 mg/dL BRIDGETTE HARTMANN Comment: Interpretive Data Ages [...] NCEP Expert Panel. Circulation 2004;110:227 3. Leonid Arellano. ALESSANDRA Cardiol. 2019October 24;5(5):540-548. doi: 10.1001/jamacardio.2020.0013 Current Interpretive Data was last revised on 2024. Non-HDL Cholesterol 142 mg/dL BRIDGETTE HARTMANN Comment: Interpretive Data Ages [...] CERNER CH Blood 07/30/2024 10:1 4 AM SPIRAL SPRING WINDER 07/30/2024 3:08 PM SPIRAL SPRING WINDER Nguyen Heath NP LAB [place]LOOD [place] [address] Department [place] [address] * (ABNORMAL) Comprehensive metabolic panel (07/30/2024 10:14 AM SPIRAL SPRING WINDER) Sodium 137 135 - 145 mmol/L Potassium, [...] CERNER CH Blood 07/30/2024 10:1 4 AM SPIRAL SPRING WINDER 07/30/2024 3:08 PM SPIRAL SPRING WINDER us Nguyen Heath NP LAB BLOOD ORDERABLES Final Resul t BRIDGETTE HARTMANN [address] Department [place] [address] * Pap and HPV, reflex to HPV Genotypes (03/02/2023 10:43 AM CDT) CLINICAL INFORMATION: [facility] Comment:None given LMP [facility] Q Interactive [facility] Comment:NONE GIVEN Previous Pap [facility] Comment:NONE GIVEN Prev. Bx [facility] Comment:NONE GIVEN SOURCE: [facility] Comment:Cervix, Endocervix Pap, specimen adequacy [facility] Comment: Satisfactory for evaluation. Endocervical/transformation zone component present. HPV interp [facility] Comment: Cytology Results: Negative for intraepithelial lesion or malignancy. Branch Banker Que [facility] Comment: MARGO ONEILL(ASCP) CT screening location: [place] [address] [place] [address] [facility] Comment: EXPLANATORY NOTE: The Pap is a [...] Client Letter) showing TIS test codes, see www.[employer] [employer]/Resources, and navigate to [facility]>Physician Materials>TIS Client Letter. You can also call for test code assistance. Human papillomavirus DNA, High Risk E6/E7 Not Detected NOT DETECTED mPortal /Dan[facility] Comment: Not Detected High Risk HPV types (16,18,31,33,35,39,45,51,52, 56,58,59,66,68) were not detected. Other HPV types which cause anogenital lesions may be present. The significance of the other types of HPV in malignant processes has not been established. Methodology: Real Time PCR Thin prep 03/02/2023 10:4 3 AM CDT 03/03/2023 2:36 AM CDT us Tia Driscoll NP LAB CYTOLOGY ORDERABLES Fin al Result [facility] [address] [place] [address] mPortal/[facility] [address] [facility] [place] [address] * Screening Mammogram Bilateral [place] (02/01/2023 [...] Anaya MD - 01/25/2023 8:[address] [facility] Patient Name: Yue Michelle Procedure Date: 01/25/2023 8:36 AM Date of : 1960 Admit Type: Outpatient Age: 62 Gender: Female Attending MD: Amanda Anaya M.D. Room: [facility] ENDOSCOPY ROOM 1 Note Status: Finalized Patient Profile: This is a 62 year old female. Her mother andbrother both had colon cancer. History of benign polypsbefore. Procedure: Colonoscopy Indications: Screening in patient at increased risk: Familyhistory of 1st-degree relative with colorectal cancerbefore age 60 years, High risk colon cancer surveillance: Personal history of colonic polyps, Lastcolonoscopy: February 2021 Referring MD: Nguyen Heath F.N.PDenise Providers: Amanda Anaya M.D. Impression: - The [...] under direct vision. The Pediatric Colonoscope PCF-H190L [id number] was introducedthrough the anus and advanced to [...] 8:36 AM Procedure Code(s): --- Professional --- 56846, Colonoscopy, flexible; diagnostic, including collection of specimen(s) by brushing or washing, when performed (separateprocedure) Diagnosis Code(s): --- Professional --- Z80.0, Family history of malignant neoplasm of digestive organs Z86.010, Personal history of colonic polyps K64.8, Other hemorrhoids K57.30, Diverticulosis of large intestine without perforation orabscess without bleeding CPT copyright 2020 [employer]. All rights reserved. The codes documented in this report are preliminary and upon corporate compliance director reviewmay be revised to meet current compliance requirements. Recognized by the [employer] for promoting quality in endoscopy Amanda Anaya MD ENDOSCOPY PROCEDURES Final Result * Hepatitis C (HCV) RNA PCR, quantitative (05/27/2019 11:48 AM SPIRAL SPRING WINDER) Pathologist [facility] HCV RNA qn Undetected Undetected IUnits/mL BRIDGETTE HERNÁNDEZ ([place]) Comment: Result in log IU/mL is Undetected. ADDITIONAL INFORMATION The quantification range of this assay is 15 to 100,000,000 IU/mL (1.18 log to 8.00 log IU/mL). Testing was performed using the mando HCV test ([employer] with the mando 6800 System. Test Performed by: [address] [address] Gold Marker: Huber Haney M.D. Ph.D.; CLIA# [id number] Blood specimen (specimen) 05/27/2019 11:48 AM SPIRAL SPRING [facility]ER 05/27/2019 2:22 PM SP[facility]AL [facility]ING [facility]ER Nguyen Heath NP LAB MICROBIOLOGY - GENERAL ORDER LUIS Final Result BRIDGETTE HERNÁNDEZ ([place]) [address] [facility] Department [place] [address] from Last 3 Months or Most Recently Relevant to Health Maintenance Insurance [place] CHO[place] IDPA Advance Directives For more information, please contact: [phone] * Full Code (Latest Code Status on [...] 12:12 PM 02/25/2021 7:06 PM Care Teams Ham Smoker Relationship Specialty Start Date End Date Nguyen Heath NP PCP - General Family Medicine 11/22/17 Ismael Moy MD [address] [place] [address] [place] [address] Consulting Physician Neurology 01/29/22
--- OUTSIDE RECORDS SUMMARY | 2024-08-03 02:26 | XMS_ITS | Encounter Summary ---
Author Organization [facility] Medical Group Address [address] [facility] [address] [place] [address] Care Team Providers Care Dispenser Operator Name Role Phone Con Del Rosario MD Primary Care Provider + [phone] Con Del Rosario MD Primary Care Provider + [phone] Con Del Rosario MD Primary Care Provider + [phone] Unknown, Notinfile Primary Care Provider Unavail able Nguyen Heath NP Primary Care Provider Breana Cain MD Primary Care Provide r Nguyen Heath YARN TEXTURING MACHINE OPERATOR Primary Care Provider Breana Cain MD Primary Care Provide r Nguyen Heath NP Primary Care Provider [phone] Ismael Moy MD Unavailable [phone] Encounter Details Date Type Department Care Team (Late st Contact Info) Description 12/06/2013 Orders Only [facility] Health Information Management [address] [place] [address] Scanning, Provider Social History Tobacco Use Types Packs/Day Years Used Date Smoking Tobacco: Some Days Alcohol Use Standard Drinks/Week Comments No 0 (1 standard drink = 0.6 oz pur e alcohol) Comments Unknown Sex and Gender Information Value Date Recorded Sex Assigned at Not on file Legal Sex Female 7:18 AM CAR OILER Gender Identity Not on file Sexual Orientation Straight 03/15/2021 1: 30 PM CDT documented as of this encounter Plan of Treatment Not on file documented as of this encounter Procedures Procedure Name Priority Date/Time Associated Diagnosis Comments SCAN - PATHOLOGY 12/06/2013 documented in this encounter Results * SCAN - PATHOLOGY (12/06/2013) us Provider Scanning Final Result documented in this encounter Visit Diagnoses Not on filedocumented in this encounter Care Teams Dispenser Operator Relationship Specialty Start Date End Date Con Del Rosario MD [address] [facility] [address] [place] [address] PCP - General 09/23/16 11/24/16 Con Del Rosario MD [address] [facility] [address] [place] [address] PCP - General 08/20/16 09/22/16 Con Del Rosario MD [address] [facility] [address] [place] [address] PCP - General 07/31/06 08/19/16 Unknown, Notinfile PCP - General 11/25/16 02/08/17 Nguyen Heath NP PCP - General 02/09/17 09/28/17 Breana Cain MD PCP - General 09/29/17 10/02/17 Nguyen Heath NP PCP - General Family Medicine 10/03/17 10/15/17 Breana Cain MD PCP - General 10/16/17 11/21/17 Nguyen Heath NP PCP - General Family Medicine 11/22/17 Ismael Moy MD [address] [place] [address] [place] [address] Consulting Physician Neurology 01/29/22 documented as of this encounter
--- OUTSIDE RECORDS SUMMARY | 2024-08-03 02:26 | XMS_ITS | Encounter Summary ---
Author Organization [facility] Medical Group Address [address] [facility] [address] [place] [address] Care Team Providers Care Transportation Department Head Name Role Phone Con Del Rosario MD Primary Care Provider + [phone] Con Del Rosario MD Primary Care Provider + [phone] Con Del Rosario MD Primary Care Provider + [phone] Unknown, Notinfile Primary Care Provider Unavail able Nguyen Heath NP Primary Care Provider [phone] Breana Cain MD Primary Care Provide r Nguyen Heath CAREER TECHNICAL EDUCATION TEACHER Primary Care Provider Breana Cain MD Primary Care Provide r Nguyen Heath NP Primary Care Provider [phone] Ismael Moy MD Unavailable [phone] Encounter Details Date Type Department Care Team (Late st Contact Info) Description 09/25/2013 Orders Only [facility] [place] Information Management [address] [place] [address] Scanning, Provider Social History Tobacco Use Types Packs/Day Years Used Date Smoking Tobacco: Some Days Alcohol Use Standard Drinks/Week Comments No 0 (1 standard drink = 0.6 oz pur e alcohol) Comments Unknown Sex and Gender Information Value Date Recorded Sex Assigned at Not on file Legal Sex Female 7:18 AM CABLE DRILLER Gender Identity Not on file Sexual Orientation Straight 03/15/2021 1: 30 PM CDT documented as of this encounter Plan of Treatment Not on file documented as of this encounter Procedures Procedure Name Priority Date/Time Associated Diagnosis Comments SCAN - PATHOLOGY 09/25/2013 documented in this encounter Results * SCAN - PATHOLOGY (09/25/2013) us Provider Scanning Final Result documented in this encounter Visit Diagnoses Not on filedocumented in this encounter Care Teams Transportation Department Head Relationship Specialty Start Date End Date Con Del Rosario MD [address] [facility] [address] [place] [address] PCP - General 09/23/16 11/24/16 Con Del Rosario MD [address] [facility] [address] [place] [address] PCP - General 08/20/16 09/22/16 Con Del Rosario MD [address] [facility] [address] [place] [address] PCP - General 07/31/06 08/19/16 Unknown, Notinfile PCP - General 11/25/16 02/08/17 Nguyen Heath NP PCP - General 02/09/17 09/28/17 Breana Cain MD PCP - General 09/29/17 10/02/17 Nguyen Heath NP PCP - General Family Medicine 10/03/17 10/15/17 Breana Cain MD PCP - General 10/16/17 11/21/17 Nguyen Heath NP PCP - General Family Medicine 11/22/17 Ismael Moy MD [address] [place] [address] [place] [address] Consulting Physician Neurology 01/29/22 documented as of this encounter
--- OUTSIDE RECORDS SUMMARY | 2024-08-03 02:26 | XMS_ITS | Encounter Summary ---
Author Organization [facility] Medical Group Address [address] [facility] [address] [place] [address] Care Team Providers Care Fish Culturist Name Role Phone Con Del Rosario MD Primary Care Provider + [phone] Con Del Rosario MD Primary Care Provider + [phone] Con Del Rosario MD Primary Care Provider + [phone] Unknown, Notinfile Primary Care Provider Unavail able Nguyen Heath NP Primary Care Provider Breana Cain MD Primary Care Provide r Nguyen Heath CHAMBER OF COMMERCE DIVISION MANAGER Primary Care Provider Breana Cain MD Primary Care Provide r Nguyen Heath NP Primary Care Provider [phone] Ismael Moy MD Unavailable [phone] Encounter Details Date Type Department Care Team (Late st Contact Info) Description 07/05/2013 Orders Only [facility] [place] Information Management [address] [place] [address] Scanning, Provider Social History Tobacco Use Types Packs/Day Years Used Date Smoking Tobacco: Some Days Alcohol Use Standard Drinks/Week Comments No 0 (1 standard drink = 0.6 oz pur e alcohol) Comments Unknown Sex and Gender Information Value Date Recorded Sex Assigned at Not on file Legal Sex Female 7: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 LOOP DRIER OPERATOR Gender Identity Not on file Sexual Orientation Straight 03/15/2021 1: 30 PM CDT documented as of this encounter Plan of Treatment Not on file documented as of this encounter Procedures Procedure Name Priority Date/Time Associated Diagnosis Comments SCAN - RADIOLOGY/IMAGING 07/05/2013 documented in this encounter Results * SCAN - RADIOLOGY/IMAGING (07/05/2013) Anatomical Region Laterality Modality Other us Provider Scanning Final Result documented in this encounter Visit Diagnoses Not on filedocumented in this encounter Care Teams Fish Culturist Relationship Specialty Start Date End Date Con Del Rosario MD [address] [facility] [address] [place] [address] PCP - General 09/23/16 11/24/16 Con Del Rosario MD [address] [facility] [address] [place] [address] PCP - General 08/20/16 09/22/16 Con Del Rosario MD [address] [facility] [address] [place] [address] PCP - General 07/31/06 08/19/16 Unknown, Notinfile PCP - General 11/25/16 02/08/17 Nguyen Heath NP PCP - General 02/09/17 09/28/17 Breana Cain MD PCP - General 09/29/17 10/02/17 Nguyen Heath NP PCP - General Family Medicine 10/03/17 10/15/17 Breana Cain MD PCP - General 10/16/17 11/21/17 Nguyen Heath NP PCP - General Family Medicine 11/22/17 Ismael Moy MD [address] [place] [address] [place] [address] Consulting Physician Neurology 01/29/22 documented as of this encounter
--- OUTSIDE RECORDS SUMMARY | 2024-08-03 02:26 | XMS_ITS | Clinical Summary ---
Author Organization [facility] Address [address], [address] [address] Phone Care Team Providers Care Social Insurance Analyst Name Role Phone Provider, None Primary Care Provider Unavailabl e Allergies Active Allergy Reactions Criticality Noted Date Comments Codeine Vomiting 08/24/2016 Penicillin G Unknown 08/24/2016 Sulfa Antibiotics Unknown 08/24/2016 Medications PROAIR HFA 108 (90 Base) MCG/ACT Aerosol Solution Reported on 11/30/2016 0 06/21/2016 Active chlorthalidone (HYGROTON) 25 MG Tablet 08/12/2016 Active estradiol (ESTRACE) 1 MG Tablet 05/31/2016 Active sertraline (ZOLOFT) 50 MG Tablet 06/28/2016 Active esomeprazole (NEXIUM) 20 MG CAPSULE DELAYED RELEASE Take 20 mg by mouth daily. Active Social History Tobacco Use Types Packs/Day Years Used Date Smoking Tobacco: Every Day Cigarettes 0.3 30 Alcohol Use Standard Drinks/Week Comments No 0 (1 standard drink = 0.6 oz pur e alcohol) Comments No Sex and Gender Information Value Date Recorded Sex Assigned at Not on file Legal Sex Female 9:50 PM CDT Gender Identity Not on file Sexual Orientation Not on file Last Filed Vital Signs Vital Sign Reading Time Taken Comments Blood Pressure 110/78 11/30/2016 3:04 PM CDT Pulse 72 11/30/2016 3:04 PM CDT Temperature - - Respiratory Rate 16 11/30/2016 3:04 PM CDT Oxygen Saturation 99% 11/30/2016 3:04 PM CDT Inhaled Oxygen Concentration - - Weight 97.1 kg (214 lb) 11/30/2016 3:04 PM CDT Height 167.6 cm (5' 6 ) 11/30/2016 3:04 PM CDT Body Mass Index 34.54 11/30/2016 3:04 PM CDT Plan of Treatment Health Maintenance Due Date Last Done Comments Hepatitis C Virus (HCV) Screening 1960 TdaP Immunization 1960 Colonoscopy 2007 Colorectal Cancer Screening 2007 Cologuard 2012 Immunochemical Fecal Occult Blood 2012 Mammogram 2012 Pneumococcal Immunization (5 0+ years) (1 of 1 - PCV) 2012 Zoster Immunization (1 of 2) 2012 Influenza Immunization (#1) 2024 SARS-COV-2 Immunization ( - 2023-25 season) 2024 Respiratory Syncytial Virus (RSV) Immunization (Adult) (1 - 1-dose 75+ series) 2037 Hepatitis B Immunization Aged Out No longer eligible based on patient's age to complete this topic Meningococcal Immunization (ACWY) Aged Out No longer eligible based on patient's age to complete this topic Pneumococcal Immunization Combined Aged Out No longer eligible based on patient's age to complete this topic Rotavirus Immunization Aged Out No lo nger eligible based on patient's age to complete this topic Care Teams Social Insurance Analyst Relationship Specialty Start Date End Date Provider, None [place] PCP - General 08/23/16
--- OUTSIDE RECORDS SUMMARY | 2024-08-03 02:26 | XMS_ITS | Encounter Summary ---
Author Organization [facility] Medical Group Address [address] [facility] [address] [place] [address] Care Team Providers Care Office Machine Service Supervisor Name Role Phone Con Del Rosario MD Primary Care Provider + [phone] Con Del Rosario MD Primary Care Provider + [phone] Con Del Rosario MD Primary Care Provider + [phone] Unknown, Notinfile Primary Care Provider Unavail able Nguyen Heath NP Primary Care Provider [phone] Breana Cain MD Primary Care Provide r Nguyen Heath AIRCRAFT STRUCTURAL DESIGN ENGINEER Primary Care Provider Breana Cain MD Primary Care Provide r Nguyen Heath NP Primary Care Provider [phone] Ismael Moy MD Unavailable [phone] Encounter Details Date Type Department Care Team (Late st Contact Info) Description 12/15/2009 Orders Only [facility] Health Information Management [address] [place] [address] Scanning, Provider Social History Tobacco Use Types Packs/Day Years Used Date Smoking Tobacco: Never Assessed Comments Unknown Sex and Gender Information Value Date Recorded Sex Assigned at Not on file Legal Sex Female 7:18 AM CLINICAL NURSING MANAGER Gender Identity Not on file Sexual Orientation Straight 03/15/2021 1: 30 PM CDT documented as of this encounter Plan of Treatment Not on file documented as of this encounter Procedures Procedure Name Priority Date/Time Associated Diagnosis Comments GI - RESULT 12/15/2009 SCAN - PATHOLOGY 12/15/2009 documented in this encounter Results * SCAN - PATHOLOGY (12/15/2009) us Provider Scanning Final Result * GI - RESULT (12/15/2009) Anatomical Region Laterality Modality Other us Provider Scanning Final Result documented in this encounter Visit Diagnoses Not on filedocumented in this encounter Care Teams Office Machine Service Supervisor Relationship Specialty Start Date End Date Con Del Rosario MD [address] [facility] [address] [place] [address] PCP - General 09/23/16 11/24/16 Con Del Rosario MD [address] [facility] [address] [place] [address] PCP - General 08/20/16 09/22/16 Con Del Rosario MD [address] [facility] [address] [place] [address] PCP - General 07/31/06 08/19/16 Unknown, Notinfile PCP - General 11/25/16 02/08/17 Nguyen Heath NP PCP - General 02/09/17 09/28/17 Breana Cain MD PCP - General 09/29/17 10/02/17 Nguyen Heath NP PCP - General Family Medicine 10/03/17 10/15/17 Breana Cain MD PCP - General 10/16/17 11/21/17 Nguyen Heath NP PCP - General Family Medicine 11/22/17 Ismael Moy MD [address] [facility] [place] [address] Consulting Physician Neurology 01/29/22 documented as of this encounter
--- OUTSIDE RECORDS SUMMARY | 2024-08-03 02:26 | XMS_ITS | Encounter Summary ---
Author Organization [facility] Medical Group Address [address] [facility] [place] [address] [place] [address] Care Team Providers Care Pie Baker Name Role Phone Con Del Rosario MD Primary Care Provider + [phone] Con Del Rosario MD Primary Care Provider + [phone] Con Del Rosario MD Primary Care Provider + [phone] Unknown, Notinfile Primary Care Provider Unavail able Nguyen Heath NP Primary Care Provider Breana Cain MD Primary Care Provide r Nguyen Heath BOX SPINNER Primary Care Provider Breana Cain MD Primary Care Provide r Nguyen Heath NP Primary Care Provider [phone] Ismael Moy MD Unavailable [phone] Encounter Details Date Type Department Care Team (Late st Contact Info) Description 12/14/2012 Orders Only [facility] Health Information Management [address] [place] [address] Scanning, Provider Social History Tobacco Use Types Packs/Day Years Used Date Smoking Tobacco: Some Days Alcohol Use Standard Drinks/Week Comments No 0 (1 standard drink = 0.6 oz pur e alcohol) Comments Unknown Sex and Gender Information Value Date Recorded Sex Assigned at Not on file Legal Sex Female 7:18 AM SENIOR TECH MANUFACTURING ENGINEERING Gender Identity Not on file Sexual Orientation Straight 03/15/2021 1: 30 PM CDT documented as of this encounter Plan of Treatment Not on file documented as of this encounter Procedures Procedure Name Priority Date/Time Associated Diagnosis Comments GI - RESULT 12/14/2012 SCAN - PATHOLOGY 12/14/2012 documented in this encounter Results * SCAN - PATHOLOGY (12/14/2012) us Provider Scanning Final Result * GI - RESULT (12/14/2012) Anatomical Region Laterality Modality Other us Provider Scanning Final Result documented in this encounter Visit Diagnoses Not on filedocumented in this encounter Care Teams Pie Baker Relationship Specialty Start Date End Date Con Del Rosario MD [address] [facility] [address] [place] [address] PCP - General 09/23/16 11/24/16 Con Del Rosario MD [address] [facility] [address] [place] [address] PCP - General 08/20/16 09/22/16 Con Del Rosario MD [address] [facility] [address] [place] [address] PCP - General 07/31/06 08/19/16 Unknown, Notinfile PCP - General 11/25/16 02/08/17 Nguyen Heath NP PCP - General 02/09/17 09/28/17 Breana Cain MD PCP - General 09/29/17 10/02/17 Nguyen Heath NP PCP - General Family Medicine 10/03/17 10/15/17 Breana Cain MD PCP - General 10/16/17 11/21/17 Nguyen Heath NP PCP - General Family Medicine 11/22/17 Ismael Moy MD [address] [place] [address] [place] [address] Consulting Physician Neurology 01/29/22 documented as of this encounter
--- OUTSIDE RECORDS SUMMARY | 2024-08-03 02:26 | XMS_ITS | Encounter Summary ---
Author Organization [facility] Address [address] [facility] [address] [place] [address] Care Team Providers Care Meter Maker Name Role Phone Con Del Rosario MD Primary Care Provider + [phone] Con Del Rosario MD Primary Care Provider + [phone] Con Del Rosario MD Primary Care Provider + [phone] Unknown, Notinfile Primary Care Provider Unavail able Nguyen Heath NP Primary Care Provider Breana Cain MD Primary Care Provide r Nguyen Heath STORE CLERK CHECKER Primary Care Provider [phone] Breana Cain MD Primary Care Provide r Nguyen Heath NP Primary Care Provider [phone] Ismael Moy MD Unavailable [phone] Encounter Details Date Type Department Care Team (Late st Contact Info) Description 07/04/2013 Orders Only [facility] [place] Information Management [address] [place] [address] Scanning, Provider Social History Tobacco Use Types Packs/Day Years Used Date Smoking Tobacco: Some Days Alcohol Use Standard Drinks/Week Comments No 0 (1 standard drink = 0.6 oz pur e alcohol) Comments Unknown Sex and Gender Information Value Date Recorded Sex Assigned at Not on file Legal Sex Female 7:18 AM PLATE PAINTER APPRENTICE Gender Identity Not on file Sexual Orientation Straight 03/15/2021 1: 30 PM CDT documented as of this encounter Plan of Treatment Not on file documented as of this encounter Procedures Procedure Name Priority Date/Time Associated Diagnosis Comments SCAN - LABS 07/04/2013 documented in this encounter Results * SCAN - LABS (07/04/2013) us Provider Scanning Final Result documented in this encounter Visit Diagnoses Not on filedocumented in this encounter Care Teams Meter Maker Relationship Specialty Start Date End Date Con Del Rosario MD [address] [facility] [address] [place] [address] PCP - General 09/23/16 11/24/16 Con Del Rosario MD 4 [facility] [address] [place] [address] PCP - General 08/20/16 09/22/16 Con Del Rosario MD 4 [facility] [address] [place] [address] PCP - General 07/31/06 08/19/16 Unknown, Notinfile PCP - General 11/25/16 02/08/17 Nguyen Heath NP PCP - General 02/09/17 09/28/17 Breana Cain MD PCP - General 09/29/17 10/02/17 Nguyen Heath NP PCP - General Family Medicine 10/03/17 10/15/17 Breana Cain MD PCP - General 10/16/17 11/21/17 Nguyen Heath NP PCP - General Family Medicine 11/22/17 Ismael Moy MD [address] [place] [address] [place] [address] Consulting Physician Neurology 01/29/22 documented as of this encounter
--- OUTSIDE RECORDS SUMMARY | 2024-08-03 02:26 | XMS_ITS | Encounter Summary ---
Author Organization [facility] Healthcare Address [address] [place] [address] Care Team Providers Care Painter Touch Up Name Role Phone Nguyen Heath NP Primary Care Provider [phone] Ismael Moy MD Unavailable [phone] Reason for Visit * Reason Onset Date Comments Scheduling Appointments 12/15/2020 Confirim ing mammogram appt- no answer Encounter Details Date Type Department Care Team (Late st Contact Info) Description 12/15/2020 Telephone [facility] [address] [place] [id number] Emelina Costello RT Scheduling Appointments (Confiriming mammogram appt- no answer ) Social History Tobacco Use Types Packs/Day Years Used Date Smoking Tobacco: Some Days Cigarettes Smokeless Tobacco: Never Alcohol Use Standard Drinks/Week Comments No 0 (1 standard drink = 0.6 oz pur e alcohol) PHQ-2 Answer Date Recorded PHQ-2 Total Score (If total score is 3 or more points, staff should administer the PHQ-9) 0 12/08/2020 Comments No Sex and Gender Information Value Date Recorded Sex Assigned at Not on file Legal Sex Female 7:18 AM FREELANCE DATA ENTRY Gender Identity Not on file Sexual Orientation Straight 03/15/2021 1: 30 PM CDT documented as of this encounter Plan of Treatment Not on file documented as of this encounter Visit Diagnoses Not on filedocumented in this encounter Care Teams Painter Touch Up Relationship Specialty Start Date End Date Nguyen Heath NP PCP - General Family Medicine 11/22/17 Ismael Moy MD [address] [facility] [address] [place], [place] [address] [address] Consulting Physician Neurology 01/29/22 documented as of this encounter
--- OUTSIDE RECORDS SUMMARY | 2024-08-03 02:26 | XMS_ITS | Clinical Summary ---
Author Organization [facility] Administrative Offices Address [address] [place] [id number] Care Team Providers Care Physiatrist Name Role Phone Heath, Nguyen Barahona [facility] Primary Care Provider [phone] Family History Medical History Relation Name Comments Breast Cancer Maternal Aunt x6 Breast Cancer Mother 60 Cancer Neg Hx Ovarian Cancer Neg Hx Relation Name Status Comments Maternal Aunt x6 Alive Mother 60 Social History Tobacco Use Types Packs/Day Years Used Date Smoking Tobacco: Never Assessed Comments Unknown Sex and Gender Information Value Date Recorded Sex Assigned at Not on file Legal Sex Female 10:52 AM CDT Gender Identity Not on file Sexual Orientation Not on file Plan of Treatment Health Maintenance Due Date Last Done Comments DTAP/TDAP/TD VACCINES (1 - Tdap) 1981 CERVICAL CANCER SCREENING 1992 COLORECTAL SCREENING 2007 Colorectal Cancer Screening 2007 FIT-DNA Q 3 years 2007 FIT/FOBT Q 1 year 2007 Flex Sig/CT Colonography Q 5 years 2007 ZOSTER VACCINE (1 of 2) 2012 BREAST CANCER SCREENING 05/31/2020 05/31/20 19, 04/02/2018, 06/13/2017, Additional history exists RSV VACCINE (60+ or ) (1 - Risk 60-74 years 1-dose series) 2022 INFLUENZA VACCINE (#1) 2024 9, 03/23/2018, 06/05/2017 Procedures Procedure Name Priority Date/Time Associated Diagnosis Comments MAMMO SCREEN BILAT W OR WO CAD Routine 05/31/2019 2:45 PM HOTEL CASINO FLOORPERSON Visit for screening mammogram from Last 3 Months or Most Recently Relevant to Health Maintenance Results * MAMMO SCREEN BILAT W OR WO CAD (05/31/2019 2:45 PM HOTEL CASINO FLOORPERSON) Anatomical Region Laterality Modality Breast Bilateral Mammography 05/31/2019 2:46 PM HOTEL CASINO FLOORPERSON Impressions 06/03/2019 10:42 AM HOTEL CASINO FLOORPERSON IMPRESSION: No mammographic evidence of malignancy. RECOMMENDATIONS: Routine screening mammogram in one year. DICTATION LOCATION: [facility] 06/03/2019 10:42 AM HOTEL CASINO FLOORPERSON BILATERAL FULL-FIELD DIGITAL SCREENING MAMMOGRAM WITH CAD DATE: 05/31/2019 2:45 PM HISTORY: Routine screening. Previous benign excisional biopsy in the upper-inner left breast. Family history of breast cancer in the patient's mother and several maternal aunts. Annual screening. TECHNIQUE: Full field digital craniocaudal and mediolateral oblique projections of both breasts were obtained. Computer aided diagnosis was performed. COMPARISON: March 2014 through March 2018. BREAST COMPOSITION: Heterogeneously dense, which limits the sensitivity of mammography. FINDINGS: No suspicious mass, suspicious microcalcifications, or architectural distortion in either breast is identified. Since the prior study, there has been no significant interval change. The computer aided diagnosis detects no significant abnormality. OVERALL FINAL ASSESSMENT: BI-RADS CATEGORY 1 - Negative Procedure Note Rubén Mullen MD - 06/03/2019 BILATERAL FULL-FIELD DIGITAL SCREENING MAMMOGRAM WITH CAD DATE: 05/31/2019 2:45 PM HISTORY: Routine screening. Previous benign excisional biopsy in the upper-inner left breast. Family history of breast cancer in the patient's mother and several maternal aunts. Annual screening. TECHNIQUE: Full field digital craniocaudal and mediolateral oblique projections of both breasts were obtained. Computer aided diagnosis was performed. COMPARISON: March 2014 through March 2018. BREAST COMPOSITION: Heterogeneously dense, which limits the sensitivity of mammography. FINDINGS: No suspicious mass, suspicious microcalcifications, or architectural distortion in either breast is identified. Since the prior study, there has been no significant interval change. The computer aided diagnosis detects no significant abnormality. OVERALL FINAL ASSESSMENT: BI-RADS CATEGORY 1 - Negative IMPRESSION: No mammographic evidence of malignancy. RECOMMENDATIONS: Routine screening mammogram in one year. DICTATION LOCATION: [facility] Francis Zuniga MD MAMMO ORDERABLES Final Result from Last 3 Months or Most Recently Relevant to Health Maintenance [place] [address] [place] [id number] Care Teams Physiatrist Relationship Specialty Start Date End Date Nguyen Heath FNP PCP - General Nurse Practitioner Family 05/30/19
--- OUTSIDE RECORDS SUMMARY | 2024-08-03 02:26 | XMS_ITS | Encounter Summary ---
Author Organization [facility] Healthcare Address [address] [place] [address] Care Team Providers Care Title 1 Tutor Name Role Phone Nguyen Heath NP Primary Care Provider [phone] Ismael Moy MD Unavailable [phone] Encounter Details Date Type Department Care Team (Late st Contact Info) Description 02/08/2021 Telephone [facility] [address] [place] [address] Lauren Ambrose, RT Social History Tobacco Use Types Packs/Day Years Used Date Smoking Tobacco: Some Days Cigarettes Smokeless Tobacco: Never Alcohol Use Standard Drinks/Week Comments No 0 (1 standard drink = 0.6 oz pur e alcohol) PHQ-2 Answer Date Recorded PHQ-2 Total Score (If total score is 3 or more points, staff should administer the PHQ-9) 0 02/12/2021 Comments No Sex and Gender Information Value Date Recorded Sex Assigned at Not on file 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
--- NOTE | 2024-08-03 02:35 | ED.ABDPAIN ---
HPI - Abdominal Pain General Chief Complaint: Abdominal Pain Stated Complaint: Abd Pain Time Seen by Provider: 08/03/24 02:35 Source: patient and family Mode of arrival: ambulatory Limitations: no limitations History of Present Illness HPI narrative: 64 years old white female came to the ED by private car complaining of central abdominal pain radiating all the way to her back. Started 3 hour prior to arrival associated with nausea. She denies any fever or chills, diarrhea or constipation, or urinary symptoms. History of abdominal hernia repair, hysterectomy, hypertension, hyperlipidemia, COPD, TIA. Related Data Home Medications ?Medication ?Instructions ?Recorded ?Confirmed ?Last Taken ?Type atorvastatin 40 mg tablet 40 mg PO DAILY 07/03/22 07/03/22 Unknown History estradiol 1 mg PO DAILY 07/03/22 07/03/22 Unknown History sertraline 100 mg tablet (Zoloft) 100 mg PO DAILY 07/03/22 07/03/22 Unknown History Allergies Allergy/AdvReac Type Severity Reaction Status Date / Time Penicillins Allergy Other Verified 08/03/24 08:06 Review of Systems Review of Systems: All systems reviewed & are unremarkable except as noted in HPI and below PMFSH Past Medical History Medical History Hypertension Exam Narrative: General appearance: Well-developed, well-nourished , in pain, restless Skin: Normal color Head: Normocephalic, nontraumatic Eyes: Clear conjunctiva ENT: Oropharynx normal, ears normal, nose normal Neck: Supple, nontender Chest and respiratory: Airway patent, no respiratory distress, no accessory muscle use Heart: Regular rate/rhythm Abdomen: Soft, diffuse tenderness mid abdomen,, no organomegaly, quiet bowel sounds Musculoskeletal: Normal range of motion, nontender back Neurologic: Alert and oriented ?3, MANAGER UNIVERSITY is normal as tested, no gross motor deficit Course Consultations Consultation #1: Dr. Parikh, urologist at [facility] accepted patient transfer He recommends to give Toradol IV right now Date: 08/03/24 Time: 06:00 Consultation #2: patient care transferred to Dr. Dominguez at shift change Date: 08/03/24 Time: 07:00 Vital Signs Vital signs: Vital Signs Temperature 36.4 C 08/03/24 02:23 Pulse Rate 106 H 08/03/24 02:23 Respiratory Rate 26 H 08/03/24 02:23 Blood Pressure 173/98 H 08/03/24 02:23 Pulse Oximetry 98 08/03/24 02:23 Oxygen Delivery Room Air 08/03/24 02:23 Temperature 37.0 C 08/03/24 07:55 Pulse Rate 108 H 08/03/24 07:55 Respiratory Rate 20 08/03/24 07:55 Blood Pressure 119/65 08/03/24 07:55 Pulse Oximetry 98 08/03/24 07:55 Oxygen Delivery Room Air 08/03/24 07:55 MDM - Abdominal Pain MDM Narrative Medical decision making narrative: patient presents with abdominal pain Vital signs Physical examination showing the patient in pain, restless, central abdominal tenderness Differential diagnosis include umbilical hernia, constipation, colitis, diverticulitis, small-bowel obstruction, pancreatitis, kidney stone, urinary tract infection Blood workup today includes CBC, CMP, lipase, lactic acid showed WBC of 13.3, hemoglobin 9.8, platelet 454, lactic acid 3.2, Urinalysis showed 2+ leukocyte Estrace CT abdomen and pelvis with IV contrast showed 3 mm obstructing calculus in the upper 3rd the left ureter with associated moderate hydronephrosis Patient received 1 L of normal saline, 1 g of Rocephin IV, 0.5 mg of the lid x4, Zofran 4 mg x 2, Flomax p.o. Diagnosis kidney stone and urinary tract infection Differential Diagnosis Differential diagnosis: Likely abdominal pain, acute appendicitis, constipation, diverticulitis, pancreatitis and small bowel obstruction Medical Records Attestation: I reviewed the patient's medical records. Lab Data Attestation: I reviewed the patient's lab results. 08/03/24 02:37 08/03/24 02:37 Labs: Lab Results 08/03/24 08/03/24 08/03/24 Range/Units 02:37 03:39 04:18 WBC 13.3 H (4.8-10.8) K/mm3 RBC 4.53 (4.20-5.40) M/mm3 Hgb 9.8 L (12.0-15.0) g/dL Hct 32.8 L (35.0-49.0) % MCV 72.4 L (78.0-102.0) fL MCH 21.6 L (27.0-31.0) pg MCHC 29.9 L (32-36) g/dL RDW 17.7 H (11.6-14.4) % Plt Count 454 H (150-420) K/mm3 MPV 9.5 (9.2-11.8) fl Immature Gran % (Auto) 0.5 H (0.0-0.0) % Neut % (Auto) 67.0 (50.0-70.0) % Lymph % (Auto) 19.9 (18.0-42.0) % [place] % (Auto) 9.8 (2.0-11.0) % Eos % (Auto) 2.0 (1.0-6.0) % Baso % (Auto) 0.8 (0.0-1.0) % Lymph # (Auto) 2.65 (1.10-4.50) K/mm3 [place] # (Auto) 1.30 H (0.10-0.90) K/mm3 Eos # (Auto) 0.27 (0.02-0.50) K/mm3 Baso # (Auto) 0.10 (0.00-0.10) K/mm3 Abs Immat Gran (auto) 0.07 H (0.00-0.00) K/mm3 Absolute Neuts (auto) 8.94 H (1.70-7.20) K/mm3 Absolute Nucleated RBC 0.00 (0.00-0.00) K/mm3 Nucleated RBC % 0.0 (0-0.0) % Sodium 139 (136-145) mmol/L Potassium 4.2 (3.5-5.1) mmol/L Chloride 103 (98-108) mmol/L Carbon Dioxide 22 (21-32) mmol/L Anion Gap 14 H (4-12) mmol/L BUN 18 (7-18) mg/dL Creatinine 0.93 (0.55-1.02) mg/dL Estim Creat Clear Calc 67 ml/min Estimated GFR > 60 (59 - ) Glucose 131 H (70-99) mg/dL Calculated Osmolality 291 (285-295) mOsm/kg Lactic Acid 3.2 H (0.4-2.0) mmol/L Calcium 8.6 (8.5-10.1) mg/dL Total Bilirubin 0.2 (0.00-1.00) mg/dL AST 22 (15-37) U/L ALT 27 (14-59) U/L Alkaline Phosphatase 77 (46-116) U/L Total Protein 7.8 (6.4-8.2) g/dL Albumin 3.9 (3.4-5.0) g/dL Lipase 58 (16-77) U/L Urine Color Light yellow (Yellow) Urine Appearance Clear (Clear) Urine pH 6.0 (5.0-8.0) Ur Specific Haven 1.010 (1.010-1.020) Urine Protein Negative (Negative) Urine Glucose (UA) Negative (Negative) Urine Ketones Negative (Negative) Ur Blood (Man) 1+ H (Negative) Urine Nitrate Negative (Negative) Urine Bilirubin Negative (Negative) Urine Urobilinogen 0.2 (0.2-1.0) mg/dL Leukocyte Esterase Rfl 2+ H (Negative) RONAN/UL Urine RBC 3-5 H (0-2) /hpf Urine WBC 4-6 H (0-3) /hpf Ur Squamous Epith Cells Rare (Few) /hpf Urine Bacteria None seen (None) /hpf Influenza A (RT-PCR) Negative (Negative) Influenza B (RT-PCR) Negative (Negative) RSV (RT-PCR) Negative (Negative) SARS-CoV-2 RNA (RT-PCR) Negative (Negative) 08/03/24 Range/Units 06:08 WBC (4.8-10.8) K/mm3 RBC (4.20-5.40) M/mm3 Hgb (12.0-15.0) g/dL Hct (35.0-49.0) % MCV (78.0-102.0) fL MCH (27.0-31.0) pg MCHC (32-36) g/dL RDW (11.6-14.4) % Plt Count (150-420) K/mm3 MPV (9.2-11.8) fl Immature Gran % (Auto) (0.0-0.0) % Neut % (Auto) (50.0-70.0) % Lymph % (Auto) (18.0-42.0) % [place] % (Auto) (2.0-11.0) % Eos % (Auto) (1.0-6.0) % Baso % (Auto) (0.0-1.0) % Lymph # (Auto) (1.10-4.50) K/mm3 [place] # (Auto) (0.10-0.90) K/mm3 Eos # (Auto) (0.02-0.50) K/mm3 Baso # (Auto) (0.00-0.10) K/mm3 Abs Immat Gran (auto) (0.00-0.00) K/mm3 Absolute Neuts (auto) (1.70-7.20) K/mm3 Absolute Nucleated RBC (0.00-0.00) K/mm3 Nucleated RBC % (0-0.0) % Sodium (136-145) mmol/L Potassium (3.5-5.1) mmol/L Chloride (98-108) mmol/L Carbon Dioxide (21-32) mmol/L Anion Gap (4-12) mmol/L BUN (7-18) mg/dL Creatinine (0.55-1.02) mg/dL Estim Creat Clear Calc ml/min Estimated GFR (59 - ) Glucose (70-99) mg/dL Calculated Osmolality (285-295) mOsm/kg Lactic Acid 2.8 H (0.4-2.0) mmol/L Calcium (8.5-10.1) mg/dL Total Bilirubin (0.00-1.00) mg/dL AST (15-37) U/L ALT (14-59) U/L Alkaline Phosphatase (46-116) U/L Total Protein (6.4-8.2) g/dL Albumin (3.4-5.0) g/dL Lipase (16-77) U/L Urine Color (Yellow) Urine Appearance (Clear) Urine pH (5.0-8.0) Ur Specific Haven (1.010-1.020) Urine Protein (Negative) Urine Glucose (UA) (Negative) Urine Ketones (Negative) Ur Blood (Man) (Negative) Urine Nitrate (Negative) Urine Bilirubin (Negative) Urine Urobilinogen (0.2-1.0) mg/dL Leukocyte Esterase Rfl (Negative) RONAN/UL Urine RBC (0-2) /hpf Urine WBC (0-3) /hpf Ur Squamous Epith Cells (Few) /hpf Urine Bacteria (None) /hpf Influenza A (RT-PCR) (Negative) Influenza B (RT-PCR) (Negative) RSV (RT-PCR) (Negative) SARS-CoV-2 RNA (RT-PCR) (Negative) Imaging Data My impression: CT abdomen and pelvis with IV contrast showed 3 mm obstructing calculus in the upper 3rd of the left ureter with associated moderate hydronephrosis Radiologist's impression: ITS Impressions Abdomen/Pelvis CT 08/03/24 07:30 IMPRESSION: 1. 4 mm stone in proximal left ureter with moderate left hydronephrosis. 2. 2 mm nonobstructing right kidney stone. Critical Care Time Critical Care Time Critical Care Time: Yes Total Critical Care Time: 30 Discharge Plan Discharge Clinical Impression: UTI (urinary tract infection), Urolithiasis, Hydronephrosis Patient Disposition: Acute Care Hospital Condition: Stable Patient Language: Hong Konger Prescriptions: No Action estradiol 1 mg 1 mg PO DAILY atorvastatin 40 mg Tablet 40 mg PO DAILY sertraline [Zoloft] 100 mg Tablet 100 mg PO DAILY valacyclovir [Valtrex] 1 gram tablet 1,000 mg PO Q8H Qty: 30 0RF prednisone 20 mg tablet 60 mg PO DAILY 10 Days Qty: 30 0RF Follow-up/Referrals: Parrish Heath RN [Primary Care Provider] - Time of Disposition: 08:46
[2024-08-03 02:41] LABS: Basophils Percent Auto 0.8 % (0.0-1.0); Eosinophils Absolute Auto 0.27 K/mm3 (0.02-0.50); Hematocrit 32.8 % (35.0-49.0); Hemoglobin 9.8 g/dL (12.0-15.0); Immature Granulocyte Absolute 0.07 K/mm3 (0.00-0.00); Immature Granulocyte Percent A 0.5 % (0.0-0.0); Lymphocytes Absolute Auto 2.65 K/mm3 (1.10-4.50); Lymphocytes Percent Auto 19.9 % (18.0-42.0); Mean Corpuscular HGB Conc 29.9 g/dL (32-36); Mean Corpuscular Hemoglobin 21.6 pg (27.0-31.0); Mean Corpuscular Volume 72.4 fL (78.0-102.0); Mean Platelet Volume 9.5 fl (9.2-11.8); Monocytes Percent Auto 9.8 % (2.0-11.0); Neutrophils Absolute Auto 8.94 K/mm3 (1.70-7.20); Platelet Count Result 454 K/mm3 (150-420); Red Blood Count 4.53 M/mm3 (4.20-5.40); Red Cell Distribution Width 17.7 % (11.6-14.4); White Blood Count 13.3 K/mm3 (4.8-10.8)
[2024-08-03] MEDS: ONDANSETRON INJ 4 MG/2 ML VIAL IV PUSH ×2 (02:41→02:58)
[2024-08-03] MEDS: SODIUM CHLORIDE 0.9% IV 1,000 ML 999 ML IV CONT (02:42)
[2024-08-03] MEDS: HYDROmorphone HCL INJ (*CRX) 2 MG/ML VIAL 0.5 MG IV PUSH ×4 (02:42→04:40)
--- NOTE | 2024-08-03 02:55 | PC.NURSE ---
PATIENT BEGAN VOMITING IN THE ROOM. GREEN FLUID. STATES HER PAIN IS HORRIBLE. JUST CUT OUT MY BELLY BUTTON . PATIENT LAUGHING AND CRYING AT THE SAME TIME. AT HER SIDE. CALL LIGHT IN REACH. WILL MEDICATE PER ORDERS
[2024-08-03 02:57] LABS: Alanine Aminotransferase 27 U/L (14-59); Albumin Level 3.9 g/dL (3.4-5.0); Alkaline Phosphatase 77 U/L (46-116); Anion Gap 14 mmol/L (4-12); Aspartate Amino Transferase 22 U/L (15-37); Bilirubin,Total 0.2 mg/dL (0.00-1.00); Blood Urea Nitrogen 18 mg/dL (7-18); Calcium 8.6 mg/dL (8.5-10.1); Carbon Dioxide 22 mmol/L (21-32); Chloride 103 mmol/L (98-108); Estimated CRCL calculation 67 ml/min; Estimated Glomerular Filt Rate > 60; Glucose 131 mg/dL (70-99); Lipase 58 U/L (16-77); Osmolality Calculated 291 mOsm/kg (285-295); Potassium 4.2 mmol/L (3.5-5.1); Sodium 139 mmol/L (136-145); Total Protein 7.8 g/dL (6.4-8.2)
--- NOTE | 2024-08-03 03:07 | PC.NURSE ---
PATIENT BEING TRANSPORTED TO CT VIA STRETCHER
[2024-08-03 03:11] LABS: Lactic Acid Reflex 3.2 mmol/L (0.4-2.0)
--- NOTE | 2024-08-03 03:18 | PC.NURSE ---
PATIENT RETURNED FROM CT
--- NOTE | 2024-08-03 03:43 | PC.NURSE ---
PATIENT AMBULATED TO THE BATHROOM TO GIVE URINE SAMPLE. AT HER SIDE
--- NOTE | 2024-08-03 03:57 | PC.NURSE ---
PATIENT MORE RELAXED AFTER THIRD DOSE OF DILAUDID. AT HER SIDE. CALL LIGHT IN REACH
[2024-08-03 04:19] LABS: SARS-CoV-2 RNA PCR Negative (Negative)
[2024-08-03 04:20] LABS: Add Urine Microscopic? YES; Appearance Urine Clear (Clear); Bilirubin Urine Negative (Negative); Blood Urine 1+ (Negative); Color Urine Light Yellow (Yellow); Glucose Urine UA Negative (Negative); Ketones Urine Negative (Negative); Leukocyte Esterase Ur 2+ LEU/UL (Negative); Nitrate Urine Negative (Negative); Protein Urine Negative (Negative); Urobilinogen Urine 0.2 mg/dL (0.2-1.0)
[2024-08-03 04:22] LABS: Influenza A QL RT-PCR Negative (Negative); Influenza B QL RT-PCR Negative (Negative); RSV RNA, RT-PCR Negative (Negative)
[2024-08-03 04:27] LABS: Bacteria Urine None seen /hpf; Squamous Epithelial Cell Urine Rare /hpf (Few)
--- OUTSIDE RECORDS SUMMARY | 2024-08-03 04:41 | XMS_ITS | Clinical Summary ---
Author Organization [facility] Address [address], [address] [address] Phone Care Team Providers Care Auto Wrecker Name Role Phone Provider, None Primary Care [...] age to complete this topic Care Teams Auto Wrecker Relationship Specialty Start Date End Date Provider, None [place] PCP - General 08/23/16
--- OUTSIDE RECORDS SUMMARY | 2024-08-03 04:41 | XMS_ITS | Encounter Summary ---
Author Organization [facility] Medical Group Address [address] [facility] [address] [place] [address] Care Team Providers Care Inspector Poising Name Role Phone Con Del Rosario MD Primary Care Provider [phone] Con Del Rosario MD Primary Care Provider [phone] Con Del Rosario MD Primary Care Provider [phone] Unknown, Notinfile Primary Care Provider Unavail able Nguyen Heath NP Primary Care Provider [phone] Breana Cain MD Primary Care Provide r Nguyen Heath COMPUTER LABORATORY TECHNICIAN Primary Care Provider Breana Cain MD Primary Care Provide r Nguyen Heath NP Primary Care Provider Ismael Moy MD Unavailable [phone] Encounter Details Date Type Department Care Team (Late st Contact Info) Description 12/15/2009 Orders Only [facility] Health Information Management [address] [place] [address] Scanning, Provider Social History Tobacco Use Types Packs/Day Years Used Date Smoking Tobacco: Never Assessed Comments Unknown Sex and Gender Information Value Date Recorded Sex Assigned at Not on file 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 Gender Identity Not on file Sexual Orientation [...] on filedocumented in this encounter Care Teams Inspector Poising Relationship Specialty Start Date End Date Con Del Rosario MD [address] [facility] [address] [place] [address] PCP - General 09/23/16 11/24/16 Con Del Rosario MD 4 [facility] [address] [place] [address] PCP - General 08/20/16 09/22/16 Con Del Rosario MD 4 [facility] [address] [place] [address] PCP - General 07/31/06 08/19/16 Unknown, Notinfile PCP - General 11/25/16 02/08/17 Nguyen Heath NP PCP - General 02/09/17 09/28/17 Breana Cain MD PCP - General 09/29/17 10/02/17 Nguyen Heath NP PCP - General Family Medicine 10/03/17 10/15/17 Breana aCin MD PCP - General 10/16/17 11/21/17 Nguyen Heath NP PCP - General Family Medicine 11/22/17 Ismael Moy MD 4 [facility] [place] [address] Consulting Physician Neurology 01/29/22 documented as of this encounter
--- OUTSIDE RECORDS SUMMARY | 2024-08-03 04:41 | XMS_ITS | Referral Summary ---
Author Organization [facility] Address [address] [place] [address] Care Team Providers Care Propagation Worker Name Role Phone Nguyen Heath NP Primary Care Provider Ismael Moy MD Unavailable Encounters Date Type Department Care Team Description 08/01/2024 Telephone [facility] Primary Care at [address] [address] Nguyen Heath NP 07/31/2024 Orders Only [facility] Primary Care at [address] [address] Nguyen Heath NP Iron deficiency anemia secondary to inadequate dietary iron intake (Primary Dx) 07/30/2024 10:14 AM MANAGER MOTOR - 07/30/2024 11:59 PM MANAGER MOTOR Hospital Encounter [address] [address] Prediabetes; Primary hypertension; Mixed hyperlipidemia Discharge Disposition: Discharge to home or self care 07/30/2024 10:15 AM MANAGER MOTOR Lab [facility] Outpatient Lab at [address] [address] Primary hypertension (Primary Dx) 07/30/2024 9:30 AM MANAGER MOTOR Office Visit [facility] Primary Care at [address] [address] Nguyen Heath NP Annual physical [...] 07/30/2024 Assessment & Plan (07/30/2024 10:06 AM MANAGER MOTOR): Went off daily inhaler due to cost. Restart advair. Continue albuterol prn History of meningioma of the brain 07/30/2024 Assessment & Plan (07/30/2024 10:05 AM MANAGER MOTOR): Last MRI was 2022. Will order repeat MRI brain for surveillance she continues to have headaches, posterior/ occipital daily Dupuytren's contracture 07/30/2024 Assessment & Plan (07/30/2024 10:05 AM MANAGER MOTOR): Left , 5th finger - referral to hand surgery, [place] Mixed obsessional thoughts and acts 07/30/2024 Assessment & Plan (07/30/2024 10:21 AM MANAGER MOTOR): OCD actions have worsened per patient. States [...] 11/24/2022 Assessment & Plan (07/30/2024 10:21 AM MANAGER MOTOR): This was originally a physical. Health maintenance [...] PM CDT): Recommended she return to her electrical installation inspector for evaluation of the chronic left dry [...] Cruz. Assessment & Plan (08/18/2022 12:20 PM MANAGER MOTOR): She is neurology follow-up next week with Dr. Reyes. Will refer to [facility] Dr. De La Cruz, ENT specialist, Assessment & Plan (07/20/2022 3:33 PM MANAGER MOTOR): This is a new problem. Having quite [...] physical Assessment & Plan (07/20/2022 3:37 PM MANAGER MOTOR): Stable. Recheck A1c Class 2 obesity with body ma ss index (BMI) of 36.0 to 36.9 in adult 07/20/2022 Assessment & Plan (11/22/2022 12:38 PM CDT): BMI Follow-up includes: exercise counseling. Assessment & Plan (07/20/2022 3:38 PM MANAGER MOTOR): BMI Follow-up includes: nutrition counseling. Meningioma, cerebral [...] I would recommend that she go to [facility] if she can transfer there Acute intractable headache 01/28/2022 Assessment & Plan (02/01/2022 4:10 PM CDT): Try using ibuprofen instead of tylenol. May use ice/heat applied to side of head when you have the intense pain. Pt stated tramadol did not help with pain. MRI with contrast ordered. Referral to Dr. Amy shaw at [facility] Referral to ophthalmology Continue on increased losartan 100mg daily. Keep bp diary, but don't dave it. Check in the am and pm or if you feel weird . Pt to f/u with Nguyen next week Benign head tremor 06/22/2021 Assessment & Plan (07/30/2024 10:20 AM MANAGER MOTOR): Head tremor is not new. Documented back to 2020. She does not think that it is worsened Assessment & Plan (06/22/2021 10:52 AM MANAGER MOTOR): Will refer back to Neurology for new symptom of head tremor Gastroesophageal reflux disease 12/15/2020 Tubular adenoma of colon 12/15/2020 Family history of breast cancer in mother 2019 Arthritis of right acromioclavicular joint 05/27 Overview (05/27/2019): Added automatically from request for surgery [id number] Mixed hyperlipidemia 10/04/2018 Assessment & Plan (09/26/2023 1:59 PM CDT): Lipid abnormalities are stable, reviewed previous lipid levels in [facility]. Pharmacotherapy as ordered. Order for lipid panel [...] January Assessment & Plan (07/20/2022 3:21 PM MANAGER MOTOR): Lipid abnormalities are stable, reviewed previous lipid levels in [facility]. Pharmacotherapy as ordered. Order for lipid panel was given today to be obtained. Pt voiced understanding of lab drawn and continuation of current medication regimen. Assessment & Plan (01/10/2022 11:39 AM CDT): Lipid abnormalities are stable, reviewed previous lipid levels in [facility]. Pharmacotherapy as ordered. Order for lipid panel was given today to be obtained. Pt voiced understanding of lab drawn and continuation of current medication regimen. Assessment & Plan (06/22/2021 11:04 AM MANAGER MOTOR): Lipid abnormalities are stable. Pharmacotherapy as ordered. Lipids will be reassessed in 6 months. Assessment & Plan (12/08/2020 10:05 AM CDT): Lipid abnormalities are stable, reviewed previous lipid levels in [facility]. Pharmacotherapy as ordered. Order for lipid panel was given today to be obtained. Pt voiced understanding of lab drawn and continuation of current medication regimen. Assessment & Plan (08/20/2020 9:13 AM MANAGER MOTOR): Lipid abnormalities are stable. Pharmacotherapy as ordered. Lipids will be reassessed in 6 months. Assessment & Plan (12/23/2019 1:50 PM CDT): Lipid abnormalities are stable. Pharmacotherapy as ordered. Lipids will be reassessed in 6 months. Assessment & Plan (05/13/2019 11:21 AM MANAGER MOTOR): Last lipid panel 09/2018 and was WNL. Continue currently medication, lipitor 20mg. Tolerating ok. F/u 6 months Assessment & Plan (10/08/2018 9:49 AM CDT): Due for repeat lab work Basal ganglia degeneration with calcification Assessment & Plan (05/07/2018 1:59 PM MANAGER MOTOR): Basal ganglia calcification seen on MRI - will refer to neurology for evaluation TIA (transient ischemic attack) 05/02/2018 Assessment & Plan (02/13/2022 6:07 PM CDT): Continue risk factor reduction. Continue atorvastatin. Work on diet, increase exercise, weight reduction. Will be scheduling f/u with Dr. Reyes, neurology Assessment & Plan (08/20/2020 9:14 AM MANAGER MOTOR): History of. Remains on statin Assessment & Plan (05/02/2018 1:32 PM MANAGER MOTOR): Hx htn, tobacco use (cigarettes) Differential includes TIA, CVA, migraines, tumor, EKG shows NSR, no change from previous EKG's. Labs as ordered. CT head as soon as can be preauth and scheduled Carotid US Chronic right-sided thoracic back pain 8 Assessment & Plan (05/02/2018 10:56 AM MANAGER MOTOR): Has had for 9 months, points to [...] is having some sinus headaches. We discussed lhbd-ewh-ertsriy medication such as Claritin D from the [...] deficiency Assessment & Plan (07/20/2022 3:21 PM MANAGER MOTOR): History of. Has been stable. Will recheck CBC with labs Assessment & Plan (12/23/2019 1:49 PM CDT): Will recheck CBC. Pt states she is going to wait on labs as she doesn't have insurance but is hoping to get some later this year Assessment & Plan (05/13/2019 11:20 AM MANAGER MOTOR): Using iron patches from the Internet. Will [...] management Assessment & Plan (07/20/2022 3:21 PM MANAGER MOTOR): Stable/ Improved. Blood pressure is adequately controlled [...] ordered. Referral to Dr. Amy shaw at [facility] Referral to ophthalmology Continue on increased losartan [...] management Assessment & Plan (06/22/2021 10:52 AM MANAGER MOTOR): Stable/ Improved. Blood pressure is adequately controlled [...] management Assessment & Plan (08/20/2020 9:13 AM MANAGER MOTOR): Stable on current medications. We will try [...] management Assessment & Plan (05/13/2019 11:20 AM MANAGER MOTOR): Hypertension is improving with treatment. Regular aerobic [...] Anxiety Assessment & Plan (07/30/2024 10:22 AM MANAGER MOTOR): Depression is controlled. Anxiety is worsening. We are changing out the sertraline for fluoxetine and having her follow up in 4-6 weeks Assessment & Plan (02/20/2023 10:29 AM CDT): Improving on current medication. Continue sertraline 100 mg as ordered. May follow up in 6 months Assessment & Plan (08/18/2022 12:24 PM MANAGER MOTOR): Improved. Continue sertraline 150 mg once daily. Assessment & Plan (07/20/2022 3:26 PM MANAGER MOTOR): Worsening. Will increase sertraline to 150 mg [...] recheck Assessment & Plan (08/20/2020 9:14 AM MANAGER MOTOR): Currently stable on sertraline and quetiapine. Will continue current medications and have her follow-up in 6 months Assessment & Plan (05/13/2019 11:21 AM MANAGER MOTOR): Continue zoloft and seroquel. Assessment & Plan [...] months Assessment & Plan (08/18/2022 12:20 PM MANAGER MOTOR): Will refer to Sleep Medicine. Patient denies [...] ordered. Referral to Dr. Amy shaw at [facility] Referral to ophthalmology Continue on increased losartan [...] in your mouth on an geni like Vidit Lower carb substitutions: Aldi carries a zero [...] in much longer they will become mushy [place] and/or coconut flour instead of regular flour [...] pork rinds For yogurt, try Two Good norwegian yogurt Use Leander for recipe ideas. Type [...] (12/04/2020): Added automatically from request for surgery [id number] Family history of colon canc er requiring screening colonoscopy 12/04/2020 06/22/2021 Overview (12/04/2020): Added automatically from request for surgery [id number] Hx of colonic polyps 12/04/2020 022 Overview (12/04/2020): Added automatically from request for surgery [id number] Intractable migraine with status migrainosus 0 06/22/2021 [...] (05/27/2019): Added automatically from request for surgery [id number] Biceps tendinitis of right upper extremity 05/27/2019 12/23/2019 Overview (05/27/2019): Added automatically from request for surgery [id number] Mucopurulent chronic bronchitis 05/13/2019 12/23/2019 Assessment & Plan (05/13/2019 11:23 AM MANAGER MOTOR): Will try doxycyline. If cough does not improve with a round of doxy, then discussed referral to owner professional engineer. Spell of generalized weakness 06/05/2018 01/10/2022 Vertigo [...] 06/22/2021 Assessment & Plan (06/05/2017 2:29 PM MANAGER MOTOR): Questioning that pain is radiating from her [...] was ill. She had labs drawn at [facility] in [facility] in [place]. We will try to obtain records. Reordered [...] surgery Assessment & Plan (08/20/2020 9:18 AM MANAGER MOTOR): Exam was negative. She no longer has [...] on file Legal Sex Female 7:18 AM MANAGER MOTOR Gender Identity Not on file Sexual Orientation Straight 03/15/2021 1: 30 PM CDT Last Filed Vital Signs Vital Sign Reading Time Taken Comments Blood Pressure 114/84 07/30/2024 9:31 AM MANAGER MOTOR Pulse 65 07/30/2024 9:31 AM MANAGER MOTOR Temperature 36.8 C (98.2 F) 07/30/2024 9:31 AM MANAGER MOTOR Respiratory Rate 16 07/30/2024 9:31 AM MANAGER MOTOR Oxygen Saturation 99% 07/30/2024 9:31 AM MANAGER MOTOR Inhaled Oxygen Concentration - - Weight 104.2 kg (229 lb 12.8 oz) 07/30/2024 9:31 AM MANAGER MOTOR Height 165.1 cm (5' 5 ) 07/30/2024 9:31 AM MANAGER MOTOR Body Mass Index 38.24 07/30/2024 9:31 AM MANAGER MOTOR Plan of Treatment Not on file Medical Devices Implanted Type Area Diesel Engine Fitter Device Identifier Shelf Expiration Date Model / Serial / Lot Depuy Mitek [id number] Healix Advance Br Orthocord 4.5mm 3 Aurora Suture Sterile Latex Free - [id number] Implanted:Qty: 1 on 06/05/2019 by Evangelist Rosales MD at [facility] Right: Shoulder Depuy Mitek 03/25/2022 [id number] / / [id number] [employer] [id number] Swivelock C 4.75mm 19.1mm Closed Eyelet Vent Aurora Suture - [id number] Implanted:Qty: 1 on 06/05/2019 by Evangelist Rosales MD at [facility] Right: Shoulder [employer] 03/25/2021 [id number] / / [id number] Procedures Procedure Name Priority Date/Time Associated Diagnosis Comments EGFR Routine 07/30/2024 10:14 AM MANAGER MOTOR Mixed hyperlipidemia DIFFERENTIAL AUTO Routine 07/30/2024 10:14 AM MANAGER MOTOR Primary hypertension Mixed hyperlipidemia CBC WITH AUTO DIFFERENTIAL Routine 07/30/2024 10:14 AM MANAGER MOTOR Primary hypertension Mixed hyperlipidemia COMPREHENSIVE METABOLIC PANEL Routine 07/30/2024 10:14 AM MANAGER MOTOR Mixed hyperlipidemia LIPID PANEL Routine 07/30/2024 10:14 AM MANAGER MOTOR Mixed hyperlipidemia THYROID FUNCTION CASCADE Routine 07/30/2024 10:14 AM MANAGER MOTOR Primary hypertension HEMOGLOBIN A1C Routine 07/30/2024 10:14 AM MANAGER MOTOR Prediabetes PAP AND HPV, REFLEX TO HPV GENOTYPES Routine 03/02/2023 10:43 AM CDT Well woman exam SCREENING MAMMOGRAM BILATERAL W TAWANDA Schedule Routine, Read Routine (OP Routine) 02/01/2023 1:15 PM CDT Screening mammogram, encounter for COLONOSCOPY 01/25/2023 8:36 AM CDT HEPATITIS C RNA, QUANTITATIVE, PCR Routine 05/27/2019 11:48 AM MANAGER MOTOR Positive hepatitis C antibody test from Last 3 Months or Most Recently Relevant to Health Maintenance Results * eGFR (07/30/2024 10:14 AM MANAGER MOTOR) eGFR >90 >=60 mL/min/1. 73 m2 Comment: [...] reviewed 2021. Blood 07/30/2024 10:1 4 AM MANAGER MOTOR 07/30/2024 3:17 PM MANAGER MOTOR Nguyen Heath NP LAB BLOOD ORDERABLES Final Resul t [facility] [address] Department [place] [address] * (ABNORMAL) Differential, auto (07/30/2024 10:14 AM MANAGER MOTOR) Neutrophil abs 5.3 1.5 - 6.5 K/cumm Imm gran abs 0.0 0.0 - 0.1 K/cumm [facility] Lymphocyte abs 2.4 0.8 - 3.3 K/cumm [facility] Monocyte abs 1.0(H) 0.2 - 0.8 K/cumm [facility] Eosinophil abs 0.2 0.0 - 0.5 K/cumm [facility] Basophil abs 0.1 0.0 - 0.1 K/cumm [facility] Neutrophil pct 58.9 % [facility] Comment: Interpretive Data Percent cell count reference ranges are not reported, since discordance with absolute values may lead to misinterpretation of CBC data. Current Interpretive Data was last revised on 2017. Imm gran pct 0.4 % [facility] Comment: Interpretive Data Percent cell count reference ranges are not reported, since discordance with absolute values may lead to misinterpretation of CBC data. Current Interpretive Data was last revised on 2017. Lymphocyte pct 26.1 % [facility] Comment: Interpretive Data Percent cell count reference ranges are not reported, since discordance with absolute values may lead to misinterpretation of CBC data. Current Interpretive Data was last revised on 2017. Monocyte pct 11.1 % [facility] Comment: Interpretive Data Percent cell count reference ranges are not reported, since discordance with absolute values may lead to misinterpretation of CBC data. Current Interpretive Data was last revised on 2017. Eosinophil pct 2.3 % [facility] Comment: Interpretive Data Percent cell count reference ranges are not reported, since discordance with absolute values may lead to misinterpretation of CBC data. Current Interpretive Data was last revised on 2017. Basophil pct 1.2 % [facility] Comment: Interpretive Data Percent cell count reference ranges are not reported, since discordance with absolute values may lead to misinterpretation of CBC data. Current Interpretive Data was last revised on 2017. Blood 07/30/2024 10:1 4 AM MANAGER MOTOR 07/30/2024 3:08 PM MANAGER MOTOR us Nguyen Heath NP LAB BLOOD ORDERABLES Final Resul t [facility] [address] Department [place] [address] * Thyroid Function [place] (07/30/2024 10:14 AM MANAGER MOTOR) TSH 1.27 0.30 - 4.20 mcIUnit/mL Blood 07/30/2024 10:1 4 AM MANAGER MOTOR 07/30/2024 3:08 PM MANAGER MOTOR Nguyen Heath NP LAB BLOOD ORDERABLES Final Resul t Performing Organization Address City/[facility] Co de Phone Number [facility] [address] [address] * (ABNORMAL) CBC with auto differential (07/30/2024 10:14 AM MANAGER MOTOR) WBC 9.0 3.8 - 9.9 K/cumm Hgb 9.9(L) 11.9 - 15.5 g/dL [facility] Hct 34.2(L) 35.6 - 45.5 % [facility] Plt 451(H) 150 - 400 K/cumm [facility] MPV 10.2 9.1 - 12.3 fL [facility] RBC 4.60 3.90 - 5.20 M/cumm [facility] MCV 74.3(L) 81.3 - 96.4 fL [facility] MCH 21.5(L) 27.1 - 33.3 pg [facility] MCHC 28.9(L) 32.3 - 35.7 g/dL [facility] RDW CV 17.9(H) 11.1 - 14.9 % [facility] RDW SD 47.4 35.7 - 48.1 fL [facility] NRBC abs 0.00 0.00 - 0.01 K/cumm [facility] Blood 07/30/2024 10:1 4 AM MANAGER MOTOR 07/30/2024 3:08 PM MANAGER MOTOR Nguyen Heath NP LAB BLOOD ORDERABLES Final Resul t Performing Organization Address City/[facility]/ZIP Co de Phone Number [facility] [address] [place] [address] * (ABNORMAL) Hemoglobin A1c (07/30/2024 10:14 AM MANAGER MOTOR) Hgb A1C 5.9(H) 4.0 - 5.6 % Estimated Average Glucose 123 mg/dL [facility] Comment: The ADA recommends reporting an estimated Average Glucose (eAG) with all Hemoglobin A1c results using the equation derived from a study of 507 normal and diabetic adults. Minority populations were underrepresented and children were not included. (Diabetes Care 31:8895-6933, 2008). The eAG is not equivalent to a fasting glucose. Blood 07/30/2024 10:1 4 AM MANAGER MOTOR 07/30/2024 3:08 PM MANAGER MOTOR Nguyen Heath NP LAB BLOOD ORDERABLES Final Resul t [facility] [address] Department [place] [address] * (ABNORMAL) Lipid panel (07/30/2024 10:14 AM MANAGER MOTOR) Cholesterol 212(H) 30 - 199 mg/dL Comment: [...] CERNER CH Blood 07/30/2024 10:1 4 AM MANAGER MOTOR 07/30/2024 3:08 PM MANAGER MOTOR Nguyen Heath NP LAB BLOOD [place] [address] [address] Department [place] [address] * (ABNORMAL) Comprehensive metabolic panel (07/30/2024 10:14 AM MANAGER MOTOR) Sodium 137 135 - 145 mmol/L Potassium, [...] CERNER CH Blood 07/30/2024 10:1 4 AM MANAGER MOTOR 07/30/2024 3:08 PM MANAGER MOTOR us Nguyen Heath NP LAB BLOOD ORDERABLES Final Resul t [facility] [address] [place] [address] * Pap and HPV, reflex to HPV Genotypes (03/02/2023 10:43 AM CDT) CLINICAL INFORMATION: [facility] Comment:None given LMP [facility] Comment:NONE GIVEN Previous Pap [facility] Comment:NONE GIVEN Prev. Bx [facility] Comment:NONE GIVEN SOURCE: [facility] Comment:Cervix, Endocervix Pap, specimen adequacy [facility] Comment: Satisfactory for evaluation. Endocervical/transformation zone component present. HPV interp [facility] Comment: Cytology Results: Negative for intraepithelial lesion or malignancy. Stud Beef Cattle Farmer Que [facility] Comment: BKA, CT(ASCP) CT screening location: [place] [address] [place] [address] Comment [facility] Comment: EXPLANATORY NOTE: The Pap is [...] Client Letter) showing TIS test codes, see [email or web address], and navigate to Well-Woman>Physician Materials>TIS Client Letter. You can also call for test code assistance. Human papillomavirus DNA, High Risk E6/E7 Not Detected NOT DETECTED [facility] /Danika Chand [facility] Comment: Not Detected High Risk HPV types (16,18,31,33,35,39,45,51,52, 56,58,59,66,68) were not detected. Other HPV types which cause anogenital lesions may be present. The significance of the other types of HPV in malignant processes has not been established. Methodology: Real Time PCR Thin prep 03/02/2023 10:4 3 AM CDT 03/03/2023 2:36 AM CDT Tia Driscoll SLITTER SCORER LAB CYTOLOGY ORDERABLES Fin al Result [facility] [address] [place] [address] [facility] [address] [facility] [place] [address] * Screening Mammogram Bilateral [place] (02/01/2023 [...] Female Attending MD: Amanda Anaya M.D. Room: [facility] ENDOSCOPY ROOM 1 Note Status: Finalized Patient [...] under direct vision. The Pediatric Colonoscope PCF-H190L [id number] was introducedthrough the anus and advanced to [...] 8:36 AM Procedure Code(s): --- Professional --- 51070, Colonoscopy, flexible; diagnostic, including collection of specimen(s) by brushing or washing, when performed (separateprocedure) Diagnosis Code(s): --- Professional --- Z80.0, Family history of malignant neoplasm of digestive organs Z86.010, Personal history of colonic polyps K64.8, Other hemorrhoids K57.30, Diverticulosis of large intestine without perforation orabscess without bleeding CPT copyright 2020 [employer]. All rights reserved. The codes documented in this report are preliminary and upon osteology teacher reviewmay be revised to meet current compliance requirements. Recognized by the [employer] for promoting quality in endoscopy Amanda Anaya MD ENDOSCOPY PROCEDURES Final Result * Hepatitis C (HCV) RNA PCR, quantitative (05/27/2019 11:48 AM MANAGER MOTOR) HCV RNA qn Undetected Undetected IUnits/mL [facility] HERN[facility] ([place]) Comment: Result in log IU/mL is Undetected. ADDITIONAL INFORMATION The quantification range of this assay is 15 to 100,000,000 IU/mL (1.18 log to 8.00 log IU/mL). Testing was performed using the mando HCV test ([employer] with the mando [id number] System. Test Performed by: [place] [address] Lead Electrician: Huber Haney M.D. Ph.D.; CLIA# [id number] Blood specimen (specimen) 05/27/2019 11:48 AM MANAGER MOTOR 05/27/2019 2:22 PM MANAGER MOTOR Nguyen Heath NP LAB MICROBIOLOGY - GENERAL ORDER LUIS Final Result [facility] HERN[facility]NDEZ ([place]) 1 [facility] Department [place] [address] from Last 3 Months or Most Recently Relevant to Health Maintenance Insurance [place] ID[place] Advance Directives For more information, please contact: [phone] * Full Code (Latest Code Status on [...] 12:12 PM 02/25/2021 7:06 PM Care Teams Propagation Worker Relationship Specialty Start Date End Date Nguyen Heath NP PCP - General Family Medicine 11/22/17 Ismael Moy MD [address] [place] [address] [place] [address] Consulting Physician Neurology 01/29/22
--- OUTSIDE RECORDS SUMMARY | 2024-08-03 04:41 | XMS_ITS | Clinical Summary ---
Author Organization [facility] Address [address] [place] [address] Care Team Providers Care Ranch Cook Name Role Phone Nguyen Heath NP Primary Care Provider [phone] Ismael Moy MD Unavailable [phone] Allergies Active Allergy Reactions Criticality Noted Date [...] 07/30/2024 Assessment & Plan (07/30/2024 10:06 AM LIVE IN HOUSEKEEPER NANNY): Went off daily inhaler due to cost. Restart advair. Continue albuterol prn History of meningioma of the brain 07/30/2024 Assessment & Plan (07/30/2024 10:05 AM LIVE IN HOUSEKEEPER NANNY): Last MRI was 2022. Will order repeat MRI brain for surveillance she continues to have headaches, posterior/ occipital daily Dupuytren's contracture 07/30/2024 Assessment & Plan (07/30/2024 10:05 AM LIVE IN HOUSEKEEPER NANNY): Left , 5th finger - referral to hand surgeryConor Mixed obsessional thoughts and acts 07/30/2024 Assessment & Plan (07/30/2024 10:21 AM LIVE IN HOUSEKEEPER NANNY): OCD actions have worsened per patient. States [...] 11/24/2022 Assessment & Plan (07/30/2024 10:21 AM LIVE IN HOUSEKEEPER NANNY): This was originally a physical. Health maintenance [...] PM CDT): Recommended she return to her ignition specialist for evaluation of the chronic left [...] Cruz. Assessment & Plan (08/18/2022 12:20 PM LIVE IN HOUSEKEEPER NANNY): She is neurology follow-up next week with Dr. Reyes. Will refer to [facility] Dr. De La Cruz, ENT specialist, Assessment & Plan (07/20/2022 3:33 PM LIVE IN HOUSEKEEPER NANNY): This is a new problem. Having quite [...] physical Assessment & Plan (07/20/2022 3:37 PM LIVE IN HOUSEKEEPER NANNY): Stable. Recheck A1c Class 2 obesity with body ma ss index (BMI) of 36.0 to 36.9 in adult 07/20/2022 Assessment & Plan (11/22/2022 12:38 PM CDT): BMI Follow-up includes: exercise counseling. Assessment & Plan (07/20/2022 3:38 PM LIVE IN HOUSEKEEPER NANNY): BMI Follow-up includes: nutrition counseling. Meningioma, cerebral [...] I would recommend that she go to [facility] if she can transfer there Acute intractable headache 01/28/2022 Assessment & Plan (02/01/2022 4:10 PM CDT): Try using ibuprofen instead of tylenol. May use ice/heat applied to side of head when you have the intense pain. Pt stated tramadol did not help with pain. MRI with contrast ordered. Referral to Dr. Amy shaw at [facility] Referral to ophthalmology Continue on increased losartan 100mg daily. Keep bp diary, but don't dave it. Check in the am and pm or if you feel weird . Pt to f/u with Nguyen next week Benign head tremor 06/22/2021 Assessment & Plan (07/30/2024 10:20 AM LIVE IN HOUSEKEEPER NANNY): Head tremor is not new. Documented back to 2020. She does not think that it is worsened Assessment & Plan (06/22/2021 10:52 AM LIVE IN HOUSEKEEPER NANNY): Will refer back to Neurology for new symptom of head tremor Gastroesophageal reflux disease 12/15/2020 Tubular adenoma of colon 12/15/2020 Family history of breast cancer in mother 2019 Arthritis of right acromioclavicular joint 05/27 Overview (05/27/2019): Added automatically from request for surgery [id number] Mixed hyperlipidemia 10/04/2018 Assessment & Plan (09/26/2023 1:59 PM CDT): Lipid abnormalities are stable, reviewed previous lipid levels in [facility]. Pharmacotherapy as ordered. Order for lipid [...] January Assessment & Plan (07/20/2022 3:21 PM LIVE IN HOUSEKEEPER NANNY): Lipid abnormalities are stable, reviewed previous lipid levels in [facility]. Pharmacotherapy as ordered. Order for lipid panel was given today to be obtained. Pt voiced understanding of lab drawn and continuation of current medication regimen. Assessment & Plan (01/10/2022 11:39 AM CDT): Lipid abnormalities are stable, reviewed previous lipid levels in [facility]. Pharmacotherapy as ordered. Order for lipid panel was given today to be obtained. Pt voiced understanding of lab drawn and continuation of current medication regimen. Assessment & Plan (06/22/2021 11:04 AM LIVE IN HOUSEKEEPER NANNY): Lipid abnormalities are stable. Pharmacotherapy as ordered. Lipids will be reassessed in 6 months. Assessment & Plan (12/08/2020 10:05 AM CDT): Lipid abnormalities are stable, reviewed previous lipid levels in [facility]. Pharmacotherapy as ordered. Order for lipid panel was given today to be obtained. Pt voiced understanding of lab drawn and continuation of current medication regimen. Assessment & Plan (08/20/2020 9:13 AM LIVE IN HOUSEKEEPER NANNY): Lipid abnormalities are stable. Pharmacotherapy as ordered. Lipids will be reassessed in 6 months. Assessment & Plan (12/23/2019 1:50 PM CDT): Lipid abnormalities are stable. Pharmacotherapy as ordered. Lipids will be reassessed in 6 months. Assessment & Plan (05/13/2019 11:21 AM LIVE IN HOUSEKEEPER NANNY): Last lipid panel 09/2018 and was WNL. Continue currently medication, lipitor 20mg. Tolerating ok. F/u 6 months Assessment & Plan (10/08/2018 9:49 AM CDT): Due for repeat lab work Basal ganglia degeneration with calcification Assessment & Plan (05/07/2018 1:59 PM LIVE IN HOUSEKEEPER NANNY): Basal ganglia calcification seen on MRI - will refer to neurology for evaluation TIA (transient ischemic attack) 05/02/2018 Assessment & Plan (02/13/2022 6:07 PM CDT): Continue risk factor reduction. Continue atorvastatin. Work on diet, increase exercise, weight reduction. Will be scheduling f/u with Dr. Reyes, neurology Assessment & Plan (08/20/2020 9:14 AM LIVE IN HOUSEKEEPER NANNY): History of. Remains on statin Assessment & Plan (05/02/2018 1:32 PM LIVE IN HOUSEKEEPER NANNY): Hx htn, tobacco use (cigarettes) Differential includes TIA, CVA, migraines, tumor, EKG shows NSR, no change from previous EKG's. Labs as ordered. CT head as soon as can be preauth and scheduled Carotid US Chronic right-sided thoracic back pain 8 Assessment & Plan (05/02/2018 10:56 AM LIVE IN HOUSEKEEPER NANNY): Has had for 9 months, points to [...] is having some sinus headaches. We discussed oosp-wij-hnnpidq medication such as Claritin D from the [...] deficiency Assessment & Plan (07/20/2022 3:21 PM LIVE IN HOUSEKEEPER NANNY): History of. Has been stable. Will recheck CBC with labs Assessment & Plan (12/23/2019 1:49 PM CDT): Will recheck CBC. Pt states she is going to wait on labs as she doesn't have insurance but is hoping to get some later this year Assessment & Plan (05/13/2019 11:20 AM LIVE IN HOUSEKEEPER NANNY): Using iron patches from the Internet. Will [...] management Assessment & Plan (07/20/2022 3:21 PM LIVE IN HOUSEKEEPER NANNY): Stable/ Improved. Blood pressure is adequately controlled [...] ordered. Referral to Dr. Amy shaw at [facility] Referral to ophthalmology Continue on increased [...] management Assessment & Plan (06/22/2021 10:52 AM LIVE IN HOUSEKEEPER NANNY): Stable/ Improved. Blood pressure is adequately controlled [...] management Assessment & Plan (08/20/2020 9:13 AM LIVE IN HOUSEKEEPER NANNY): Stable on current medications. We will try [...] management Assessment & Plan (05/13/2019 11:20 AM LIVE IN HOUSEKEEPER NANNY): Hypertension is improving with treatment. Regular aerobic [...] Anxiety Assessment & Plan (07/30/2024 10:22 AM LIVE IN HOUSEKEEPER NANNY): Depression is controlled. Anxiety is worsening. We are changing out the sertraline for fluoxetine and having her follow up in 4-6 weeks Assessment & Plan (02/20/2023 10:29 AM CDT): Improving on current medication. Continue sertraline 100 mg as ordered. May follow up in 6 months Assessment & Plan (08/18/2022 12:24 PM LIVE IN HOUSEKEEPER NANNY): Improved. Continue sertraline 150 mg once daily. Assessment & Plan (07/20/2022 3:26 PM LIVE IN HOUSEKEEPER NANNY): Worsening. Will increase sertraline to 150 mg [...] recheck Assessment & Plan (08/20/2020 9:14 AM LIVE IN HOUSEKEEPER NANNY): Currently stable on sertraline and quetiapine. Will continue current medications and have her follow-up in 6 months Assessment & Plan (05/13/2019 11:21 AM LIVE IN HOUSEKEEPER NANNY): Continue zoloft and seroquel. Assessment & Plan [...] months Assessment & Plan (08/18/2022 12:20 PM LIVE IN HOUSEKEEPER NANNY): Will refer to Sleep Medicine. Patient denies [...] ordered. Referral to Dr. Amy shaw at [facility] Referral to ophthalmology Continue on increased [...] in your mouth on an geni like [employer] Lower carb substitutions: Aldi carries a zero [...] in much longer they will become mushy [place] and/or coconut flour instead of regular flour [...] pork rinds For yogurt, try Two Good burkinan yogurt Use Pinterest for recipe ideas. Type [...] (12/04/2020): Added automatically from request for surgery [id number] Family history of colon canc er requiring screening colonoscopy 12/04/2020 06/22/2021 Overview (12/04/2020): Added automatically from request for surgery [id number] Hx of colonic polyps 12/04/2020 022 Overview (12/04/2020): Added automatically from request for surgery [id number] Intractable migraine with status migrainosus 0 06/22/2021 [...] (05/27/2019): Added automatically from request for surgery [id number] Biceps tendinitis of right upper extremity 05/27/2019 12/23/2019 Overview (05/27/2019): Added automatically from request for surgery [id number] Mucopurulent chronic bronchitis 05/13/2019 12/23/2019 Assessment & Plan (05/13/2019 11:23 AM LIVE IN HOUSEKEEPER NANNY): Will try doxycyline. If cough does not improve with a round of doxy, then discussed referral to track grinder. Spell of generalized weakness 06/05/2018 01/10/2022 Vertigo [...] 06/22/2021 Assessment & Plan (06/05/2017 2:29 PM LIVE IN HOUSEKEEPER NANNY): Questioning that pain is radiating from her [...] labs drawn at [facility] [place]. We will try to obtain records. Reordered [...] surgery Assessment & Plan (08/20/2020 9:18 AM LIVE IN HOUSEKEEPER NANNY): Exam was negative. She no longer has a gallbladder. She believes it is muscular as it started after reaching for an object that was up high. She states that she will call us when she has insurance or if pain worsens for further workup Inflamed seborrheic keratosis 07/28/2012 06/22/2021 Encounters Date Type Department Care Team Description 08/01/2024 Telephone [facility] Primary Care at [address] [phone] Nguyen Heath NP 07/31/2024 Orders Only [facility] Primary Care at [address] [phone] Nguyen Heath NP Iron deficiency anemia secondary to inadequate dietary iron intake (Primary Dx) 07/30/2024 10:15 AM LIVE IN HOUSEKEEPER NANNY Lab [facility] Outpatient Lab at [address] [phone] Primary hypertension (Primary Dx) 07/30/2024 10:14 AM LIVE IN HOUSEKEEPER NANNY - 07/30/2024 11:59 PM LIVE IN HOUSEKEEPER NANNY Hospital Encounter [address] [address] Prediabetes; Primary hypertension; Mixed hyperlipidemia Discharge Disposition: Discharge to home or self care 07/30/2024 9:30 AM LIVE IN HOUSEKEEPER NANNY Office Visit [facility] Primary Care at [address] [phone] Nguyen Heath NP Annual physical exam (Primary [...] Added autom atically from request for surgery [id number] Spell of generalized weakness 06/05/2018 Family History [...] on file Legal Sex Female 7:18 AM LIVE IN HOUSEKEEPER NANNY Gender Identity Not on file Sexual Orientation [...] Comments Blood Pressure 114/84 07/30/2024 9:31 AM LIVE IN HOUSEKEEPER NANNY Pulse 65 07/30/2024 9:31 AM LIVE IN HOUSEKEEPER NANNY Temperature 36.8 C (98.2 F) 07/30/2024 9:31 AM LIVE IN HOUSEKEEPER NANNY Respiratory Rate 16 07/30/2024 9:31 AM LIVE IN HOUSEKEEPER NANNY Oxygen Saturation 99% 07/30/2024 9:31 AM LIVE IN HOUSEKEEPER NANNY Inhaled Oxygen Concentration - - Weight 104.2 kg (229 lb 12.8 oz) 07/30/2024 9:31 AM LIVE IN HOUSEKEEPER NANNY Height 165.1 cm (5' 5 ) 07/30/2024 9:31 AM LIVE IN HOUSEKEEPER NANNY Body Mass Index 38.24 07/30/2024 9:31 AM LIVE IN HOUSEKEEPER NANNY Plan of Treatment Health Maintenance Due Date [...] 02/17/2022, 10/03/2018 Medical Devices Implanted Type Area Financial Operations Consultant Device Identifier Shelf Expiration Date Model / Serial / Lot Depuy Mitek [id number] Healix Advance Br Orthocord 4.5mm 3 [place] Suture Sterile Latex Free - [id number] Implanted:Qty: 1 on 06/05/2019 by Evangelist Rosales MD at [facility] Right: Shoulder Depuy Mitek 03/25/2022 [id number] / / [id number] [employer] Ar-[id number] Swivelock C 4.75mm 19.1mm Closed Eyelet Vent [place] Suture - [id number] Implanted:Qty: 1 on 06/05/2019 by Evangelist Rosales MD at [facility] Right: Shoulder [employer] 03/25/2021 [id number] / / [id number] Procedures Procedure Name Priority Date/Time Associated Diagnosis Comments EGFR Routine 07/30/2024 10:14 AM LIVE IN HOUSEKEEPER NANNY Mixed hyperlipidemia DIFFERENTIAL AUTO Routine 07/30/2024 10:14 AM LIVE IN HOUSEKEEPER NANNY Primary hypertension Mixed hyperlipidemia CBC WITH AUTO DIFFERENTIAL Routine 07/30/2024 10:14 AM LIVE IN HOUSEKEEPER NANNY Primary hypertension Mixed hyperlipidemia COMPREHENSIVE METABOLIC PANEL Routine 07/30/2024 10:14 AM LIVE IN HOUSEKEEPER NANNY Mixed hyperlipidemia LIPID PANEL Routine 07/30/2024 10:14 AM LIVE IN HOUSEKEEPER NANNY Mixed hyperlipidemia THYROID FUNCTION CASCADE Routine 07/30/2024 10:14 AM LIVE IN HOUSEKEEPER NANNY Primary hypertension HEMOGLOBIN A1C Routine 07/30/2024 10:14 AM LIVE IN HOUSEKEEPER NANNY Prediabetes PAP AND HPV, REFLEX TO HPV GENOTYPES Routine 03/02/2023 10:43 AM CDT Well woman exam SCREENING MAMMOGRAM BILATERAL W TAWANDA Schedule Routine, Read Routine (OP Routine) 02/01/2023 1:15 PM CDT Screening mammogram, encounter for COLONOSCOPY 01/25/2023 8:36 AM CDT HEPATITIS C RNA, QUANTITATIVE, PCR Routine 05/27/2019 11:48 AM LIVE IN HOUSEKEEPER NANNY Positive hepatitis C antibody test from Last 3 Months or Most Recently Relevant to Health Maintenance Results * eGFR (07/30/2024 10:14 AM LIVE IN HOUSEKEEPER NANNY) eGFR >90 >=60 mL/min/1. 73 m2 Comment: [...] reviewed 2021. Blood 07/30/2024 10:1 4 AM LIVE IN HOUSEKEEPER NANNY 07/30/2024 3:17 PM LIVE IN HOUSEKEEPER NANNY us Nguyen Heath NP LAB BLOOD ORDERABLES Final Resul t [facility] [address] Department [place] [address] * (ABNORMAL) Differential, auto (07/30/2024 10:14 AM LIVE IN HOUSEKEEPER NANNY) Neutrophil abs 5.3 1.5 - 6.5 K/cumm Imm gran abs 0.0 0.0 - 0.1 K/cumm [facility] Lymphocyte abs 2.4 0.8 - 3.3 K/cumm [facility] Monocyte abs 1.0(H) 0.2 - 0.8 K/cumm [facility] Eosinophil abs 0.2 0.0 - 0.5 K/cumm [facility] Basophil abs 0.1 0.0 - 0.1 K/cumm [facility] Neutrophil pct 58.9 % [facility] Comment: Interpretive Data Percent cell count reference ranges are not reported, since discordance with absolute values may lead to misinterpretation of CBC data. Current Interpretive Data was last revised on 2017. Imm gran pct 0.4 % [facility] Comment: Interpretive Data Percent cell count reference ranges are not reported, since discordance with absolute values may lead to misinterpretation of CBC data. Current Interpretive Data was last revised on 2017. Lymphocyte pct 26.1 % [facility] Comment: Interpretive Data Percent cell count reference ranges are not reported, since discordance with absolute values may lead to misinterpretation of CBC data. Current Interpretive Data was last revised on 2017. Monocyte pct 11.1 % [facility] Comment: Interpretive Data Percent cell count reference ranges are not reported, since discordance with absolute values may lead to misinterpretation of CBC data. Current Interpretive Data was last revised on 2017. Eosinophil pct 2.3 % [facility] Comment: Interpretive Data Percent cell count reference ranges are not reported, since discordance with absolute values may lead to misinterpretation of CBC data. Current Interpretive Data was last revised on 2017. Basophil pct 1.2 % [facility] Comment: Interpretive Data Percent cell count reference ranges are not reported, since discordance with absolute values may lead to misinterpretation of CBC data. Current Interpretive Data was last revised on 2017. Blood 07/30/2024 10:1 4 AM LIVE IN HOUSEKEEPER NANNY 07/30/2024 3:08 PM LIVE IN HOUSEKEEPER NANNY us Nguyen Heath NP LAB BLOOD ORDERABLES Final Resul t [facility] [address] [address] [facility] [place] [address] * Thyroid Function [place] (07/30/2024 10:14 AM LIVE IN HOUSEKEEPER NANNY) Pathologist [facility] TSH 1.27 0.30 - 4.20 mcIUnit/mL Blood 07/30/2024 10:1 4 AM LIVE IN HOUSEKEEPER NANNY 07/30/2024 3:08 PM LIVE IN HOUSEKEEPER NANNY Nguyen Heath NP LAB BLOOD ORDERABLES Final Resul t Performing Organization Address [facility] de Phone Number BR[facility]GET[facility] HARTMANN [address] [address] [facility] [place] [address] * (ABNORMAL) CBC with auto differential (07/30/2024 10:14 AM LIVE IN HOUSEKEEPER NANNY) Pathologist [facility] WBC 9.0 3.8 - 9.9 K/cumm Hgb 9.9(L) 11.9 - 15.5 g/dL [facility] Hct 34.2(L) 35.6 - 45.5 % [facility] CH Plt 451(H) 150 - 400 K/cumm [facility] MPV 10.2 9.1 - 12.3 fL [facility] RBC 4.60 3.90 - 5.20 M/cumm [facility] MCV 74.3(L) 81.3 - 96.4 fL [facility] MCH 21.5(L) 27.1 - 33.3 pg [facility] MCHC 28.9(L) 32.3 - 35.7 g/dL [facility] RDW CV 17.9(H) 11.1 - 14.9 % [facility] RDW SD 47.4 35.7 - 48.1 fL [facility] NRBC abs 0.00 0.00 - 0.01 K/cumm [facility] Blood 07/30/2024 10:1 4 AM LIVE IN HOUSEKEEPER NANNY 07/30/2024 3:08 PM LIVE IN HOUSEKEEPER NANNY us Nguyen Heath NP LAB BLOOD ORDERABLES Final Resul t Performing Organization Address [facility] de Phone Number BR[facility]GET[facility] HARTMANN [address] Department [place] [address] * (ABNORMAL) Hemoglobin A1c (07/30/2024 10:14 AM LIVE IN HOUSEKEEPER NANNY) Hgb A1C 5.9(H) 4.0 - 5.6 % Estimated Average Glucose 123 mg/dL [facility] Comment: The ADA recommends reporting an estimated Average Glucose (eAG) with all Hemoglobin A1c results using the equation derived from a study of 507 normal and diabetic adults. Minority populations were underrepresented and children were not included. (Diabetes Care 31:0329-4082, 2008). The eAG is not equivalent to a fasting glucose. Blood 07/30/2024 10:1 4 AM LIVE IN HOUSEKEEPER NANNY 07/30/2024 3:08 PM LIVE IN HOUSEKEEPER NANNY Nguyen Heath NP LAB BLOOD ORDERABLES Final Resul t [facility] [address] [address] Department [place] [address] * (ABNORMAL) Lipid panel (07/30/2024 10:14 AM LIVE IN HOUSEKEEPER NANNY) Cholesterol 212(H) 30 - 199 mg/dL Comment: [...] [facility] Blood 07/30/2024 10:1 4 AM LIVE IN HOUSEKEEPER NANNY 07/30/2024 3:08 PM LIVE IN HOUSEKEEPER NANNY Nguyen Heath NP LAB [place]OD [place] [address] Department [place] [address] * (ABNORMAL) Comprehensive metabolic panel (07/30/2024 10:14 AM LIVE IN HOUSEKEEPER NANNY) Sodium 137 135 - 145 mmol/L Potassium, [...] [facility] Blood 07/30/2024 10:1 4 AM LIVE IN HOUSEKEEPER NANNY 07/30/2024 3:08 PM LIVE IN HOUSEKEEPER NANNY us Nguyen Heath NP LAB BLOOD ORDERABLES Final Resul t [facility] [address] [address] Department [place] [address] * Pap and HPV, reflex to HPV Genotypes (03/02/2023 10:43 AM CDT) CLINICAL INFORMATION: [facility] Comment:None given LMP [facility] Comment:NONE GIVEN Previous Pap [facility] Comment:NONE GIVEN Prev. Bx [facility] Comment:NONE GIVEN SOURCE: [facility] Comment:Cervix, Endocervix Pap, specimen adequacy [facility] Comment: Satisfactory for evaluation. Endocervical/transformation zone component present. HPV interp [facility] Comment: Cytology Results: Negative for intraepithelial lesion or malignancy. Oil Well Fishing Tool Technician [facility] Comment: MARGO ONEILL(ASCP) CT screening location: [place] [address] [place] [address] Comment [facility] Comment: EXPLANATORY NOTE: The Pap is [...] Client Letter) showing TIS test codes, see [email or web address], and navigate to [facility]>Physician Materials>TIS Client Letter. You can also call for test code assistance. Human papillomavirus DNA, High Risk E6/E7 Not Detected NOT DETECTED Material Mix /[facility] Comment: Not Detected High Risk HPV types (16,18,31,33,35,39,45,51,52, 56,58,59,66,68) were not detected. Other HPV types which cause anogenital lesions may be present. The significance of the other types of HPV in malignant processes has not been established. Methodology: Real Time PCR Thin prep 03/02/2023 10:4 3 AM CDT 03/03/2023 2:36 AM CDT us Tia Driscoll NP LAB CYTOLOGY ORDERABLES Fin al Result [employer] [address] [place] [address] Material Mix/[facility] [address] [facility] [place] [address] * Screening Mammogram Bilateral [place] (02/01/2023 [...] Anaya MD - 01/25/2023 8:36 AM CDT [facility] Patient Name: Yue Michelle Procedure Date: 01/25/2023 8:36 AM Date of : 1960 Admit Type: Outpatient Age: 62 Gender: Female Attending MD: Amanda Anaya M.D. Room: [facility] ENDOSCOPY ROOM 1 Note Status: Finalized Patient [...] under direct vision. The Pediatric Colonoscope [id number]-H190L [id number] was introducedthrough the anus and advanced to [...] 8:36 AM Procedure Code(s): --- Professional --- 63980, Colonoscopy, flexible; diagnostic, including collection of specimen(s) by brushing or washing, when performed (separateprocedure) Diagnosis Code(s): --- Professional --- Z80.0, Family history of malignant neoplasm of digestive organs Z86.010, Personal history of colonic polyps K64.8, Other hemorrhoids K57.30, Diverticulosis of large intestine without perforation orabscess without bleeding CPT copyright 2020 [employer]. All rights reserved. The codes documented in this report are preliminary and upon data coder operator reviewmay be revised to meet current compliance requirements. Recognized by the [employer] for promoting quality in endoscopy Amanda Anaya MD ENDOSCOPY PROCEDURES Final Result * Hepatitis C (HCV) RNA PCR, quantitative (05/27/2019 11:48 AM LIVE IN HOUSEKEEPER NANNY) Pathologist [facility] HCV RNA qn Undetected Undetected IUnits/mL [facility] ([place]) Comment: Result in log IU/mL is Undetected. ADDITIONAL INFORMATION The quantification range of this assay is 15 to 100,000,000 IU/mL (1.18 log to 8.00 log IU/mL). Testing was performed using the mando HCV test ([employer] with the mando 6800 System. Test Performed by: [address] [address] Knitter Operator: Huber Haney M.D. Ph.D.; CLIA# [id number] Blood specimen (specimen) 05/27/2019 11:48 AM LIVE IN HOUSEKEEPER NANNY 05/27/2019 2:22 PM LIVE IN HOUSEKEEPER NANNY Nguyen Heath NP LAB MICROBIOLOGY - GENERAL ORDER LUIS Final Result [facility]GETTE HERN[facility]NDEZ ([place]) 1 [facility] Department [place] [address] from Last 3 Months or Most Recently Relevant to Health Maintenance Insurance [place] CHO[place]F [place] ID[place] Advance Directives For more information, please contact: [phone] * Full Code (Latest Code Status on [...] 12:12 PM 02/25/2021 7:06 PM Care Teams Ranch Cook Relationship Specialty Start Date End Date Nguyen Heath NP PCP - General Family Medicine 11/22/17 Ismael Moy MD [address] [place] [address] [place] [address] Consulting Physician Neurology 01/29/22
--- OUTSIDE RECORDS SUMMARY | 2024-08-03 04:41 | XMS_ITS | Encounter Summary ---
Author Organization [facility] Medical Group Address [address] [facility] [address] [place] [address] Care Team Providers Care Pulverizing And Sifting Operator Name Role Phone Con Del Rosario MD Primary Care Provider + [phone] Con Del Rosario MD Primary Care Provider + [phone] Con Del Rosario MD Primary Care Provider + [phone] Unknown, Notinfile Primary Care Provider Unavail able Nguyen Heath NP Primary Care Provider Breana Cain MD Primary Care Provide r Nguyen Heath ESTIMATOR PRINTING Primary Care Provider [phone] Breana Cain MD Primary Care Provide r Nguyen Heath NP Primary Care Provider [phone] Ismael Moy MD Unavailable [phone] Encounter Details Date Type Department Care Team (Late st Contact Info) Description 07/04/2013 Orders Only [facility] Information Management [address] [place] [address] Scanning, Provider Social History Tobacco Use Types Packs/Day Years Used Date Smoking Tobacco: Some Days Alcohol Use Standard Drinks/Week Comments No 0 (1 standard drink = 0.6 oz pur e alcohol) Comments Unknown Sex and Gender Information Value Date Recorded Sex Assigned at Not on file Legal Sex Female 7:18 AM JOB HAND Gender Identity Not on file Sexual Orientation [...] on filedocumented in this encounter Care Teams Pulverizing And Sifting Operator Relationship Specialty Start Date End Date Con Del Rosario MD [address] [facility] [address] [place] [address] PCP - General 09/23/16 11/24/16 Con Del Rosario MD [address] [facility] [address] [place] [address] PCP - General 08/20/16 09/22/16 Con Del Rosario MD [address] [facility] [address] [place] [address] PCP - General 07/31/06 08/19/16 Unknown, Notinfile PCP - General 11/25/16 02/08/17 Nguyen Heath NP PCP - General 02/09/17 09/28/17 Breana Cain MD PCP - General 09/29/17 10/02/17 Nguyen Heath NP PCP - General Family Medicine 10/03/17 10/15/17 Breana Cain MD PCP - General 10/16/17 11/21/17 Nguyen Heath NP PCP - General Family Medicine 11/22/17 Ismael Moy MD [address] [place] [address] [place] [address] Consulting Physician Neurology 01/29/22 documented as of this encounter
--- OUTSIDE RECORDS SUMMARY | 2024-08-03 04:41 | XMS_ITS | Encounter Summary ---
Author Organization [facility] Medical Group Address [address] [facility] [address] [place] [address] Care Team Providers Care Torpedo Man Name Role Phone Con Del Rosario MD Primary Care Provider + [phone] Con Del Rosario MD Primary Care Provider + [phone] Con Del Rosario MD Primary Care Provider + [phone] Unknown, Notinfile Primary Care Provider Unavail able Nguyen Heath NP Primary Care Provider [phone] Breana Cain MD Primary Care Provide r Nguyen Heath TRACK FITTER Primary Care Provider Breana Cain MD Primary Care Provide r Nguyen Heath NP Primary Care Provider [phone] Ismael Moy MD Unavailable [phone] Encounter Details Date Type Department Care Team (Late st Contact Info) Description 07/05/2013 [place] Only [facility] [place] [address] [place] [address] Scanning, Provider Social History Tobacco Use Types Packs/Day Years Used Date Smoking Tobacco: Some Days Alcohol Use Standard Drinks/Week Comments No 0 (1 standard drink = 0.6 oz pur e alcohol) Comments Unknown Sex and Gender Information Value Date Recorded Sex Assigned at Not on file Legal Sex Female 7:18 AM TAR HEEL Gender Identity Not on file Sexual Orientation [...] on filedocumented in this encounter Care Teams Torpedo Man Relationship Specialty Start Date End Date Con Del Rosario MD [address] [facility] [address] [place] [address] PCP - General 09/23/16 11/24/16 Con Del Rosario MD [address] [facility] [address] [place] [address] PCP - General 08/20/16 09/22/16 Con Del Rosario MD [address] [facility] [address] [place] [address] PCP - General 07/31/06 08/19/16 Unknown, Notinfile PCP - General 11/25/16 02/08/17 Nguyen Heath NP PCP - General 02/09/17 09/28/17 Breana Cain MD PCP - General 09/29/17 10/02/17 Nguyen Heath NP PCP - General Family Medicine 10/03/17 10/15/17 Breana Cain MD PCP - General 10/16/17 11/21/17 Nguyen Heath NP PCP - General Family Medicine 11/22/17 Ismael Moy MD [address] [place] [address] [place] [address] Consulting Physician Neurology 01/29/22 documented as of this encounter
--- OUTSIDE RECORDS SUMMARY | 2024-08-03 04:41 | XMS_ITS | Encounter Summary ---
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
--- OUTSIDE RECORDS SUMMARY | 2024-08-03 04:41 | XMS_ITS | Encounter Summary ---
Author Organization [facility] Medical Group Address [address] [facility] [address] [place] [address] Care Team Providers Care Bender Machine Operator Name Role Phone Con Del Rosario MD Primary Care Provider + [phone] Con Del Rosario MD Primary Care Provider + [phone] Con Del Rosario MD Primary Care Provider + [phone] Unknown, Notinfile Primary Care Provider Unavail able Nguyen Heath NP Primary Care Provider Breana Cain MD Primary Care Provide r Nguyen Heath PICKING BELT OPERATOR Primary Care Provider Breana Cain MD Primary Care Provide r Nguyen Heath NP Primary Care Provider [phone] Ismael Moy MD Unavailable [phone] Encounter Details Date Type Department Care Team (Late st Contact Info) Description 12/06/2013 Orders Only [facility] [place] [facility] [address] [place] [address] Scanning, Provider Social History Tobacco Use Types Packs/Day Years Used Date Smoking Tobacco: Some Days Alcohol Use Standard Drinks/Week Comments No 0 (1 standard drink = 0.6 oz pur e alcohol) Comments Unknown Sex and Gender Information Value Date Recorded Sex Assigned at Not on file Legal Sex Female 7:18 AM REPAIRER ART OBJECTS Gender Identity Not on file Sexual Orientation [...] on filedocumented in this encounter Care Teams Bender Machine Operator Relationship Specialty Start Date End Date Con Del Rosario MD [address] [facility] [address] [place] [address] PCP - General 09/23/16 11/24/16 Con Del Rosario MD [address] [facility] [address] [place] [address] PCP - General 08/20/16 09/22/16 Con Del Rosario MD [address] [facility] [address] [place] [address] PCP - General 07/31/06 08/19/16 Unknown, Notinfile PCP - General 11/25/16 02/08/17 Nguyen Heath NP PCP - General 02/09/17 09/28/17 Breana Cain MD PCP - General 09/29/17 10/02/17 Nguyen Heath NP PCP - General Family Medicine 10/03/17 10/15/17 Breana Cain MD PCP - General 10/16/17 11/21/17 Nguyen Heath NP PCP - General Family Medicine 11/22/17 Ismael Moy MD [address] [place] [address] [place] [address] Consulting Physician Neurology 01/29/22 documented as of this encounter
--- OUTSIDE RECORDS SUMMARY | 2024-08-03 04:41 | XMS_ITS | Encounter Summary ---
Author Organization [facility] Medical Group Address [address] [facility] [address] [place] [address] Care Team Providers Care Flight Controls Engineer Name Role Phone Con Del Rosario MD Primary Care Provider + [phone] Con Del Rosario MD Primary Care Provider + [phone] Con Del Rosario MD Primary Care Provider + [phone] Unknown, Notinfile Primary Care Provider Unavail able Nguyen Heath NP Primary Care Provider Breana Cain MD Primary Care Provide r Nguyen Heath CLOTH COVERED HELMET PULLER Primary Care Provider Breana Cain MD Primary Care Provide r Nguyen Heath NP Primary Care Provider [phone] Ismael Moy MD Unavailable [phone] Encounter Details Date Type Department Care Team (Late st Contact Info) Description 09/25/2013 [place] Only [facility] [place] [address] [place] [address] Scanning, Provider Social History Tobacco Use Types Packs/Day Years Used Date Smoking Tobacco: Some Days Alcohol Use Standard Drinks/Week Comments No 0 (1 standard drink = 0.6 oz pur e alcohol) Comments Unknown Sex and Gender Information Value Date Recorded Sex Assigned at Not on file Legal Sex Female 7: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 PERSONNEL SUPERVISOR Gender Identity Not on file Sexual Orientation [...] on filedocumented in this encounter Care Teams Flight Controls Engineer Relationship Specialty Start Date End Date Con Del Rosario MD [address] [facility] [address] [place] [address] PCP - General 09/23/16 11/24/16 Con Del Rosario MD [address] [facility] [address] [place] [address] PCP - General 08/20/16 09/22/16 Con Del Rosario MD [address] [facility] [address] [place] [address] PCP - General 07/31/06 08/19/16 Unknown, Notinfile PCP - General 11/25/16 02/08/17 Nguyen Heath NP PCP - General 02/09/17 09/28/17 Breana Cain MD PCP - General 09/29/17 10/02/17 Nguyen Heath NP PCP - General Family Medicine 10/03/17 10/15/17 Breana Cain MD PCP - General 10/16/17 11/21/17 Nguyen Heath NP PCP - General Family Medicine 11/22/17 Ismael Moy MD [address] [place] [address] [place] [address] Consulting Physician Neurology 01/29/22 documented as of this encounter
--- OUTSIDE RECORDS SUMMARY | 2024-08-03 04:41 | XMS_ITS | Encounter Summary ---
Author Organization [facility] Medical Group Address [address] [facility] [address] [place] [address] Care Team Providers Care Marine Engineering Teacher Name Role Phone Con Del Rosario MD Primary Care Provider + [phone] Con Del Rosario MD Primary Care Provider + [phone] Con Del Rosario MD Primary Care Provider + [phone] Unknown, Notinfile Primary Care Provider Unavail able Nguyen Heath NP Primary Care Provider [phone] Breana Cain MD Primary Care Provide r Nguyen Heath MEDICAL DOCTOR NUCLEAR MEDICINE Primary Care Provider [phone] Breana Cain MD Primary Care Provide r Nguyen Heath NP Primary Care Provider [phone] Ismael Moy MD Unavailable [phone] Encounter Details Date Type Department Care Team (Late st Contact Info) Description 12/14/2012 Orders Only [facility] Health Information Management [address] [place] [address] Scanning, Provider Social History Tobacco Use Types Packs/Day Years Used Date Smoking Tobacco: Some Days Alcohol Use Standard Drinks/Week Comments No 0 (1 standard drink = 0.6 oz pur e alcohol) Comments Unknown Sex and Gender Information Value Date Recorded Sex Assigned at Not on file Legal Sex Female 7:18 AM BILLING ANALYST Gender Identity Not on file Sexual [...] on filedocumented in this encounter Care Teams Marine Engineering Teacher Relationship Specialty Start Date End Date Con Del Rosario MD [address] [facility] [address] [place] [address] PCP - General 09/23/16 11/24/16 Con Del Rosario MD 4 [facility] [address] [place] [address] PCP - General 08/20/16 09/22/16 Con Del Rosario MD [address] [facility] [address] [place] [address] PCP - General 07/31/06 08/19/16 Unknown, Notinfile PCP - General 11/25/16 02/08/17 Nguyen Heath NP PCP - General 02/09/17 09/28/17 Breana Cain MD PCP - General 09/29/17 10/02/17 Nguyen Heath NP PCP - General Family Medicine 10/03/17 10/15/17 Breana Cain MD PCP - General 10/16/17 11/21/17 Nguyen Heath NP PCP - General Family Medicine 11/22/17 Ismael Moy MD [address] [place] [address] [place] [address] Consulting Physician Neurology 01/29/22 documented as of this encounter
--- OUTSIDE RECORDS SUMMARY | 2024-08-03 04:41 | XMS_ITS | Clinical Summary ---
Author Organization [facility] Administrative Offices Address [address] [place] [id number] Care Team Providers Care Mica Washer Gluer Name Role Phone Heath, Nguyen Barahona [facility] Primary Care Provider [phone] Family History Medical History Relation Name Comments [...] OR WO CAD Routine 05/31/2019 2:45 PM FIBERGLASS MACHINE OPERATOR Visit for screening mammogram from Last 3 Months or Most Recently Relevant to Health Maintenance Results * MAMMO SCREEN BILAT W OR WO CAD (05/31/2019 2:45 PM FIBERGLASS MACHINE OPERATOR) Anatomical Region Laterality Modality Breast Bilateral Mammography 05/31/2019 2:46 PM FIBERGLASS MACHINE OPERATOR Impressions 06/03/2019 10:42 AM FIBERGLASS MACHINE OPERATOR IMPRESSION: No mammographic evidence of malignancy. RECOMMENDATIONS: Routine screening mammogram in one year. DICTATION LOCATION: [facility] 06/03/2019 10:42 AM FIBERGLASS MACHINE OPERATOR BILATERAL FULL-FIELD DIGITAL SCREENING MAMMOGRAM WITH CAD [...] screening mammogram in one year. DICTATION LOCATION: [facility] Francis Zuniga MD MAMMO ORDERABLES Final Result from Last 3 Months or Most Recently Relevant to Health Maintenance [place] [address] [place] [id number] Care Teams Mica Washer Gluer Relationship Specialty Start Date End Date Nguyen Heath FNP PCP - General Nurse Practitioner Family 05/30/19
--- OUTSIDE RECORDS SUMMARY | 2024-08-03 04:41 | XMS_ITS | Encounter Summary ---
Author Organization [facility] Healthcare Address [address] [place] [address] Care Team Providers Care Motor Express Clerk Name Role Phone Nguyen Heath NP Primary Care Provider [phone] Ismael Moy MD Unavailable [phone] Reason for Visit * Reason Onset Date Comments Scheduling Appointments 12/15/2020 Confirim ing mammogram appt- no answer Encounter Details Date Type Department Care Team (Late st Contact Info) Description 12/15/2020 Telephone [facility] [address] [place] [id number] [address]ina [address] Scheduling Appointments (Confiriming mammogram [...] on file Legal Sex Female 7:18 AM CONCRETE ROD BUSTER Gender Identity Not on file Sexual Orientation Straight 03/15/2021 1: 30 PM CDT documented as of this encounter Plan of Treatment Not on file documented as of this encounter Visit Diagnoses Not on filedocumented in this encounter Care Teams Motor Express Clerk Relationship Specialty Start Date End Date Nguyen Heath NP PCP - General Family Medicine 11/22/17 Ismale Moy MD [address] [facility] [address] [place], [place] [address] [address] Consulting Physician Neurology 01/29/22 documented as of this encounter
--- NOTE | 2024-08-03 04:43 | PC.NURSE ---
PATIENT ROLLED TO HER LEFT SIDE AND HAD AN EPISODE OF FLATULANCE
[2024-08-03 05:37] LABS: Reflex Lactic Acid Yes or No Add Lactic
[2024-08-03] MEDS: TAMSULOSIN HCL 0.4 MG CAPSULE PO (05:56)
[2024-08-03] MEDS: KETOROLAC 30 MG/ML VIAL (*BKC) IV PUSH (05:59)
--- NOTE | 2024-08-03 06:09 | PC.NURSE ---
PATIENT UPDATED ON POSSIBLE TRANSFER TO [facility]. INFORMED PATIENT THAT DR CHAND IS WAITING ON HOSPITALIST TO RETURN CALL
[2024-08-03 06:40] LABS: Lactic Acid 2.8 mmol/L (0.4-2.0)
--- NOTE | 2024-08-03 07:06 | PC.NURSE ---
REPORT GIVEN TO [facility]
--- NOTE | 2024-08-05 12:53 | PC.NURSE ---
Final urine culture report; no growth.
== END 2024-08-03 08:20 | disposition short-term general hospital (02) ==
PROVIDERS: Emergency Medicine; Emergency Provider Emergency Medicine
DX: N39.0 Urinary tract infection, site not specified (principal); N13.2 Hydronephrosis with renal and ureteral calculous obstruction; I10 Essential (primary) hypertension; E78.5 Hyperlipidemia, unspecified; J44.9 Chronic obstructive pulmonary disease, unspecified; Z86.73 Personal history of transient ischemic attack (TIA), and cerebral infarction without residual deficits
CPT/HCPCS: 36415; 74177; 80053; 81001; 83605; 83690; 85025; 87086; 87637; 96365; 96375; 96376; 99285; A9270; J0696; J1171; J1885; J2405; J7030; Q9967

== ENCOUNTER 2024-08-09 13:21 | Emergency (ER) | payer MEDICAID, SELFPAY ==
[2024-08-09 13:23] VITALS: BP 147/103; PULSE 88; RESP 20; TEMP 37; O2SAT 97
--- NOTE | 2024-08-09 13:24 | ED.ABDPAIN ---
HPI - Abdominal Pain General Chief Complaint: Urogenital-Female Stated Complaint: abd pain after stent removed from kidney Source: patient and family Mode of arrival: ambulatory Limitations: no limitations History of Present Illness HPI narrative: history of kidney stone, status post stent placement 7 days ago, status post stent removal few hours ago at [facility]. At home patient started having pain left lower quadrant at the same side of the stent and left flank pain. was advised to go to the closest emergency room for a Toradol shot. Patient denies any fever, chills, nausea, or vomiting Related Data Home Medications ?Medication ?Instructions ?Recorded ?Confirmed ?Last Taken ?Type atorvastatin 40 mg tablet 40 mg PO DAILY 07/03/22 07/03/22 Unknown History estradiol 1 mg PO DAILY 07/03/22 07/03/22 Unknown History sertraline 100 mg tablet (Zoloft) 100 mg PO DAILY 07/03/22 07/03/22 Unknown History Allergies Allergy/AdvReac Type Severity Reaction Status Date / Time Penicillins Allergy Other Verified 08/03/24 08:06 Review of Systems Review of Systems: All systems reviewed & are unremarkable except as noted in HPI and below PMFSH Past Medical History Medical History Hypertension Exam Narrative: General appearance: Well-developed, well-nourished, in pain Skin: Normal color Chest and respiratory: Airway patent, no respiratory distress, no accessory muscle use Heart: Regular rate/rhythm Abdomen: Soft, nontender, no organomegaly, quiet bowel sounds Musculoskeletal: Normal range of motion, nontender back Neurologic: Alert and oriented ?3, INSTRUMENT AND CONTROL TECHNICIAN is normal as tested, no gross motor deficit MDM - Abdominal Pain MDM Narrative Medical decision making narrative: Patient is status post renal stent removal few hours prior to arrival to the emergency room subsequently started having pain left lower quadrant and left flank area was advised by her urologist to go to the emergency room for Toradol injection. In the ED patient received 60 mg of Toradol IM with remarkable improvement. Discharged on Toradol 10 mg every 6 hours as needed. Differential Diagnosis Differential diagnosis: Likely other ( Post renal stent removal pain) Critical Care Time Critical Care Time Critical Care Time: No Discharge Plan Discharge Clinical Impression: Flank pain Patient Disposition: Home, Self-Care Condition: Improved Instructions: Flank Pain (ED) Additional Instructions: Return if symptoms are worsening , call your family physician for appointment, take Tylenol as as needed for aches and pain, continue home medications. Patient Language: Persian Prescriptions: New ketorolac 10 mg tablet 10 mg PO Q6H PRN (Reason: pain) 5 Days Qty: 20 0RF No Action estradiol 1 mg 1 mg PO DAILY atorvastatin 40 mg Tablet 40 mg PO DAILY sertraline [Zoloft] 100 mg Tablet 100 mg PO DAILY valacyclovir [Valtrex] 1 gram tablet 1,000 mg PO Q8H Qty: 30 0RF prednisone 20 mg tablet 60 mg PO DAILY 10 Days Qty: 30 0RF Follow-up/Referrals: UNKNOWN,DOCTOR [Primary Care Provider] -
--- OUTSIDE RECORDS SUMMARY | 2024-08-09 13:24 | XMS_ITS | Referral Summary ---
Author Organization [facility] Address [address] [place] [address] Care Team Providers Care Bracelet Form Coverer Name Role Phone Nguyen Heath NP Primary Care Provider [phone] Ismael Moy MD Unavailable [phone] Encounters Date Type Department Care Team Description 08/08/2024 11:06 AM PHOSPHORUS PROCESSING SUPERVISOR - 08/08/2024 11:59 PM PHOSPHORUS PROCESSING SUPERVISOR Hospital Encounter [facility] [address] [place] [address] History of meningioma of the brain Discharge Disposition: Discharge to home or self care 08/01/2024 Telephone [facility] Primary Care at [address] [phone] Nguyen Heath NP 07/31/2024 Orders Only [facility] Primary Care at [address] [phone] Nguyen Heath NP Iron deficiency anemia secondary to inadequate dietary iron intake (Primary Dx) 07/30/2024 10:14 AM PHOSPHORUS PROCESSING SUPERVISOR - 07/30/2024 11:59 PM PHOSPHORUS PROCESSING SUPERVISOR Hospital Encounter [address] [address] Prediabetes; Primary hypertension; Mixed hyperlipidemia Discharge Disposition: Discharge to home or self care 07/30/2024 10:15 AM PHOSPHORUS PROCESSING SUPERVISOR Lab [facility] Outpatient Lab at [address] [phone] Primary hypertension (Primary Dx) 07/30/2024 9:30 AM PHOSPHORUS PROCESSING SUPERVISOR Office Visit [facility] Primary Care at [address] [phone] Nguyen Heath NP Annual physical [...] 07/30/2024 Assessment & Plan (07/30/2024 10:06 AM PHOSPHORUS PROCESSING SUPERVISOR): Went off daily inhaler due to cost. Restart advair. Continue albuterol prn History of meningioma of the brain 07/30/2024 Assessment & Plan (07/30/2024 10:05 AM PHOSPHORUS PROCESSING SUPERVISOR): Last MRI was 2022. Will order repeat MRI brain for surveillance she continues to have headaches, posterior/ occipital daily Dupuytren's contracture 07/30/2024 Assessment & Plan (07/30/2024 10:05 AM PHOSPHORUS PROCESSING SUPERVISOR): Left , 5th finger - referral to hand surgery, [place] Mixed obsessional thoughts and acts 07/30/2024 Assessment & Plan (07/30/2024 10:21 AM PHOSPHORUS PROCESSING SUPERVISOR): OCD actions have worsened per patient. States [...] 11/24/2022 Assessment & Plan (07/30/2024 10:21 AM PHOSPHORUS PROCESSING SUPERVISOR): This was originally a physical. Health maintenance [...] PM CDT): Recommended she return to her papier mache molder for evaluation of the chronic left dry [...] Improved. 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 She needs updated referral to Dr. De La Cruz. Assessment & Plan (08/18/2022 12:20 PM PHOSPHORUS PROCESSING SUPERVISOR): She is neurology follow-up next week with Dr. Reyes. Will refer to [facility] Dr. De La Cruz, ENT specialist, Assessment & Plan (07/20/2022 3:33 PM PHOSPHORUS PROCESSING SUPERVISOR): This is a new problem. Having quite [...] physical Assessment & Plan (07/20/2022 3:37 PM PHOSPHORUS PROCESSING SUPERVISOR): Stable. Recheck A1c Class 2 obesity with body ma ss index (BMI) of 36.0 to 36.9 in adult 07/20/2022 Assessment & Plan (11/22/2022 12:38 PM CDT): BMI Follow-up includes: exercise counseling. Assessment & Plan (07/20/2022 3:38 PM PHOSPHORUS PROCESSING SUPERVISOR): BMI Follow-up includes: nutrition counseling. Meningioma, cerebral 02/23/2022 Assessment & Plan (02/23/2022 12:06 PM CDT): MRI reviewed. I encouraged patient to let Dr. Liu know that her MRI has been done and results are available in [facility]. Also let him know that she is [...] ordered. Referral to Dr. Amy shaw at [facility] Referral to ophthalmology Continue on increased losartan 100mg daily. Keep bp diary, but don't dave it. Check in the am and pm or if you feel weird . Pt to f/u with Nguyen next week Benign head tremor 06/22/2021 Assessment & Plan (07/30/2024 10:20 AM PHOSPHORUS PROCESSING SUPERVISOR): Head tremor is not new. Documented back to 2020. She does not think that it is worsened Assessment & Plan (06/22/2021 10:52 AM PHOSPHORUS PROCESSING SUPERVISOR): Will refer back to Neurology for new symptom of head tremor Gastroesophageal reflux disease 12/15/2020 Tubular adenoma of colon 12/15/2020 Family history of breast cancer in mother 2019 Arthritis of right acromioclavicular joint 05/27 Overview (05/27/2019): Added automatically from request for surgery [id number] Mixed hyperlipidemia 10/04/2018 Assessment & Plan (09/26/2023 1:59 PM CDT): Lipid abnormalities are stable, reviewed previous lipid levels in [facility]. Pharmacotherapy as ordered. Order for lipid panel [...] January Assessment & Plan (07/20/2022 3:21 PM PHOSPHORUS PROCESSING SUPERVISOR): Lipid abnormalities are stable, reviewed previous lipid levels in [facility]. Pharmacotherapy as ordered. Order for lipid panel was given today to be obtained. Pt voiced understanding of lab drawn and continuation of current medication regimen. Assessment & Plan (01/10/2022 11:39 AM CDT): Lipid abnormalities are stable, reviewed previous lipid levels in [facility]. Pharmacotherapy as ordered. Order for lipid panel was given today to be obtained. Pt voiced understanding of lab drawn and continuation of current medication regimen. Assessment & Plan (06/22/2021 11:04 AM PHOSPHORUS PROCESSING SUPERVISOR): Lipid abnormalities are stable. Pharmacotherapy as ordered. Lipids will be reassessed in 6 months. Assessment & Plan (12/08/2020 10:05 AM CDT): Lipid abnormalities are stable, reviewed previous lipid levels in [facility]. Pharmacotherapy as ordered. Order for lipid panel was given today to be obtained. Pt voiced understanding of lab drawn and continuation of current medication regimen. Assessment & Plan (08/20/2020 9:13 AM PHOSPHORUS PROCESSING SUPERVISOR): Lipid abnormalities are stable. Pharmacotherapy as ordered. Lipids will be reassessed in 6 months. Assessment & Plan (12/23/2019 1:50 PM CDT): Lipid abnormalities are stable. Pharmacotherapy as ordered. Lipids will be reassessed in 6 months. Assessment & Plan (05/13/2019 11:21 AM PHOSPHORUS PROCESSING SUPERVISOR): Last lipid panel 09/2018 and was WNL. Continue currently medication, lipitor 20mg. Tolerating ok. F/u 6 months Assessment & Plan (10/08/2018 9:49 AM CDT): Due for repeat lab work Basal ganglia degeneration with calcification Assessment & Plan (05/07/2018 1:59 PM PHOSPHORUS PROCESSING SUPERVISOR): Basal ganglia calcification seen on MRI - will refer to neurology for evaluation TIA (transient ischemic attack) 05/02/2018 Assessment & Plan (02/13/2022 6:07 PM CDT): Continue risk factor reduction. Continue atorvastatin. Work on diet, increase exercise, weight reduction. Will be scheduling f/u with Dr. Reyes, neurology Assessment & Plan (08/20/2020 9:14 AM PHOSPHORUS PROCESSING SUPERVISOR): History of. Remains on statin Assessment & Plan (05/02/2018 1:32 PM PHOSPHORUS PROCESSING SUPERVISOR): Hx htn, tobacco use (cigarettes) Differential includes TIA, CVA, migraines, tumor, EKG shows NSR, no change from previous EKG's. Labs as ordered. CT head as soon as can be preauth and scheduled Carotid US Chronic right-sided thoracic back pain 8 Assessment & Plan (05/02/2018 10:56 AM PHOSPHORUS PROCESSING SUPERVISOR): Has had for 9 months, points to [...] is having some sinus headaches. We discussed [id number] medication such as Claritin D from the [...] deficiency Assessment & Plan (07/20/2022 3:21 PM PHOSPHORUS PROCESSING SUPERVISOR): History of. Has been stable. Will recheck CBC with labs Assessment & Plan (12/23/2019 1:49 PM CDT): Will recheck CBC. Pt states she is going to wait on labs as she doesn't have insurance but is hoping to get some later this year Assessment & Plan (05/13/2019 11:20 AM PHOSPHORUS PROCESSING SUPERVISOR): Using iron patches from the Internet. Will [...] management Assessment & Plan (07/20/2022 3:21 PM PHOSPHORUS PROCESSING SUPERVISOR): Stable/ Improved. Blood pressure is adequately controlled [...] ordered. Referral to Dr. Amy shaw at [facility] Referral to ophthalmology Continue on increased losartan [...] management Assessment & Plan (06/22/2021 10:52 AM PHOSPHORUS PROCESSING SUPERVISOR): Stable/ Improved. Blood pressure is adequately controlled [...] management Assessment & Plan (08/20/2020 9:13 AM PHOSPHORUS PROCESSING SUPERVISOR): Stable on current medications. We will try [...] management Assessment & Plan (05/13/2019 11:20 AM PHOSPHORUS PROCESSING SUPERVISOR): Hypertension is improving with treatment. Regular aerobic [...] Anxiety Assessment & Plan (07/30/2024 10:22 AM PHOSPHORUS PROCESSING SUPERVISOR): Depression is controlled. Anxiety is worsening. We are changing out the sertraline for fluoxetine and having her follow up in 4-6 weeks Assessment & Plan (02/20/2023 10:29 AM CDT): Improving on current medication. Continue sertraline 100 mg as ordered. May follow up in 6 months Assessment & Plan (08/18/2022 12:24 PM PHOSPHORUS PROCESSING SUPERVISOR): Improved. Continue sertraline 150 mg once daily. Assessment & Plan (07/20/2022 3:26 PM PHOSPHORUS PROCESSING SUPERVISOR): Worsening. Will increase sertraline to 150 mg [...] recheck Assessment & Plan (08/20/2020 9:14 AM PHOSPHORUS PROCESSING SUPERVISOR): Currently stable on sertraline and quetiapine. Will continue current medications and have her follow-up in 6 months Assessment & Plan (05/13/2019 11:21 AM PHOSPHORUS PROCESSING SUPERVISOR): Continue zoloft and seroquel. Assessment & Plan [...] Eczema 07/28/2012 Insomnia 07/06/2012 Overview (07/14/2022): ambien seroquel Assessment & Plan (09/26/2023 1:58 PM [...] months Assessment & Plan (08/18/2022 12:20 PM PHOSPHORUS PROCESSING SUPERVISOR): Will refer to Sleep Medicine. Patient denies [...] ordered. Referral to Dr. Amy shaw at [facility] Referral to ophthalmology Continue on increased losartan [...] in your mouth on an geni like [place] Lower carb substitutions: [employer] carries a zero [...] in much longer they will become mushy [place] and/or coconut flour instead of regular flour [...] pork rinds For yogurt, try Two Good dutch yogurt Use [employer] for recipe ideas. Type [...] (12/04/2020): Added automatically from request for surgery [id number] Family history of colon canc er requiring screening colonoscopy 12/04/2020 06/22/2021 Overview (12/04/2020): Added automatically from request for surgery [id number] Hx of colonic polyps 12/04/2020 022 Overview (12/04/2020): Added automatically from request for surgery [id number] Intractable migraine with status migrainosus 0 06/22/2021 [...] (05/27/2019): Added automatically from request for surgery [id number] Biceps tendinitis of right upper extremity 05/27/2019 12/23/2019 Overview (05/27/2019): Added automatically from request for surgery [id number] Mucopurulent chronic bronchitis 05/13/2019 12/23/2019 Assessment & Plan (05/13/2019 11:23 AM PHOSPHORUS PROCESSING SUPERVISOR): Will try doxycyline. If cough does not improve with a round of doxy, then discussed referral to reinsurance claims analyst. Spell of generalized weakness 06/05/2018 01/10/2022 Vertigo [...] 06/22/2021 Assessment & Plan (06/05/2017 2:29 PM PHOSPHORUS PROCESSING SUPERVISOR): Questioning that pain is radiating from her [...] She [facility] labs drawn at [facility] [place]. We will try to obtain records. Reordered [...] surgery Assessment & Plan (08/20/2020 9:18 AM PHOSPHORUS PROCESSING SUPERVISOR): Exam was negative. She no longer has [...] on file Legal Sex Female 7:18 AM PHOSPHORUS PROCESSING SUPERVISOR Gender Identity Not on file Sexual Orientation Straight 03/15/2021 1: 30 PM CDT Last Filed Vital Signs Vital Sign Reading Time Taken Comments Blood Pressure 114/84 07/30/2024 9:31 AM PHOSPHORUS PROCESSING SUPERVISOR Pulse 65 07/30/2024 9:31 AM PHOSPHORUS PROCESSING SUPERVISOR Temperature 36.8 C (98.2 F) 07/30/2024 9:31 AM PHOSPHORUS PROCESSING SUPERVISOR Respiratory Rate 16 07/30/2024 9:31 AM PHOSPHORUS PROCESSING SUPERVISOR Oxygen Saturation 99% 07/30/2024 9:31 AM PHOSPHORUS PROCESSING SUPERVISOR Inhaled Oxygen Concentration - - Weight 104.2 kg (229 lb 12.8 oz) 07/30/2024 9:31 AM PHOSPHORUS PROCESSING SUPERVISOR Height 165.1 cm (5' 5 ) 07/30/2024 9:31 AM PHOSPHORUS PROCESSING SUPERVISOR Body Mass Index 38.24 07/30/2024 9:31 AM PHOSPHORUS PROCESSING SUPERVISOR Plan of Treatment Not on file Medical Devices Implanted Type Area Calciminer Device Identifier Shelf Expiration Date Model / Serial / Lot Depuy Mitek [id number] Healix Advance Br Orthocord 4.5mm 3 Gore Suture Sterile Latex Free - [id number] Implanted:Qty: 1 on 06/05/2019 by Evangelist Rosales MD at [facility] Right: Shoulder Depuy Mitek 03/25/2022 [id number] / / [id number] [employer] [id number] Swivelock C 4.75mm 19.1mm Closed Eyelet Vent Gore Suture - [id number] Implanted:Qty: 1 on 06/05/2019 by Evangelist Rosales MD at [facility] Right: Shoulder [employer] 03/25/2021 [id number] / / [id number] Procedures Procedure Name Priority Date/Time Associated Diagnosis Comments MRI BRAIN W WO CONTRAST Schedule Routine, Read Routine (OP Routine) 08/08/2024 12:17 PM PHOSPHORUS PROCESSING SUPERVISOR History of meningioma of the brain EGFR Routine 07/30/2024 10:14 AM PHOSPHORUS PROCESSING SUPERVISOR Mixed hyperlipidemia DIFFERENTIAL AUTO Routine 07/30/2024 10:14 AM PHOSPHORUS PROCESSING SUPERVISOR Primary hypertension Mixed hyperlipidemia CBC WITH AUTO DIFFERENTIAL Routine 07/30/2024 10:14 AM PHOSPHORUS PROCESSING SUPERVISOR Primary hypertension Mixed hyperlipidemia COMPREHENSIVE METABOLIC PANEL Routine 07/30/2024 10:14 AM PHOSPHORUS PROCESSING SUPERVISOR Mixed hyperlipidemia LIPID PANEL Routine 07/30/2024 10:14 AM PHOSPHORUS PROCESSING SUPERVISOR Mixed hyperlipidemia THYROID FUNCTION CASCADE Routine 07/30/2024 10:14 AM PHOSPHORUS PROCESSING SUPERVISOR Primary hypertension HEMOGLOBIN A1C Routine 07/30/2024 10:14 AM PHOSPHORUS PROCESSING SUPERVISOR Prediabetes PAP AND HPV, REFLEX TO HPV GENOTYPES Routine 03/02/2023 10:43 AM CDT Well woman exam SCREENING MAMMOGRAM BILATERAL W TAWANDA Schedule Routine, Read Routine (OP Routine) 02/01/2023 1:15 PM CDT Screening mammogram, encounter for COLONOSCOPY 01/25/2023 8:36 AM CDT HEPATITIS C RNA, QUANTITATIVE, PCR Routine 05/27/2019 11:48 AM PHOSPHORUS PROCESSING SUPERVISOR Positive hepatitis C antibody test from Last 3 Months or Most Recently Relevant to Health Maintenance Results * MRI Brain W WO Contrast (08/08/2024 12:17 PM PHOSPHORUS PROCESSING SUPERVISOR) Anatomical Region Laterality Modality Head and Neck N/A Magnetic Resonan ce 08/08/2024 12:2 7 PM PHOSPHORUS PROCESSING SUPERVISOR Narrative 08/08/2024 1:14 PM PHOSPHORUS PROCESSING SUPERVISOR EXAM DESCRIPTION: MRI BRAIN W WO CONTRAST REASON FOR STUDY: Meningioma Follow up for meningioma. Pt c/o recurring headaches and some pain. No prior surg to area. TECHNIQUE: Multiplanar imaging includes noncontrast T1, T2, FLAIR, diffusion with ADC map and post contrast T1 sequences. Additional sequence(s) sensitive to blood products. Images stored on PACS. CONTRAST TYPE/DOSE: 20mL of GADOTERATE MEGLUMINE 0.5 MMOL/ML INTRAVENOUS SOLUTION (SO) injected via intravenous COMPARISON: MRI brain dated 01/26/2023, 02/16/2022, 01/28/2022 and 06/11/2018. CT head without contrast dated 01/28/2022 and 05/03/2018. FINDINGS: There is no diffusion restriction to suggest acute/recent infarction. The bilateral basal ganglia susceptibility signal would be compatible with mineralization. The right tentorial susceptibility signal correlates to calcification on the prior CT head dated 01/28/2022. The size and configuration of the ventricles and sulci are normal for the patient's age. There is no hydrocephalus. The basilar cisterns are maintained. Right parietal tiny cortical/subcortical small chronic infarction is again seen. Elsewhere in the brain the occasional subcortical and periventricular white matter T2/FLAIR hyperintense signal in the bilateral cerebral hemispheres is nonspecific but compatible with chronic microvascular ischemic type change in a patient of this age. Overlying the anterior right temporal convexity extra-axial homogeneously enhancing 1.5 cm meningioma as seen on the previous MRI dated 01/26/2023. There is no progressive mass effect or parenchymal edema. The globes are grossly symmetric. Mucosal thickening in the bilateral ethmoid air cells. There is T2 hyperintense signal in the bilateral mastoid air cells. A few scattered scalp nodules as seen on the previous MRI are nonspecific by imaging. For example left frontal 1.1 cm (series 10, image 24), left posterior vertex 1.3 cm and right lateral vertex 0.9 cm (series 10, image 25). Please correlate with physical examination. The junction of the deep and superficial lobe of the right parotid gland is a 0.8 cm well-circumscribed T2 hyperintense lesion (series 11, image 3). IMPRESSION: 1. The right middle cranial fossa meningioma is similar in size when compared to the previous MRI dated 01/26/2023. No progressive mass effect or parenchymal edema. 2. No acute infarction. 3. Chronic infarction, chronic microvascular ischemic type white-matter changes and additional findings as above. 4. A few scalp nodules are nonspecific by imaging. Please correlate with physical examination. 5. Right parotid gland 0.8 cm T2 hyperintense lesion. If this is a new finding for the patient then recommend ENT consultation. THIS IS AN ELECTRONICALLY VERIFIED FINAL REPORT 08/08/2024 1:14 PM - Electronically signed by Tobias Wadsworth D.O. AP: SUSHIL Report ID: [id number] Reading Location: [id number] Procedure Note Tobias Wadsworth, DO - 08/08/2024 EXAM DESCRIPTION: MRI BRAIN W WO CONTRAST REASON FOR STUDY: Meningioma Follow up for meningioma. Pt c/o recurring headaches and some pain. Noprior surg to area. TECHNIQUE: Multiplanar imaging includes noncontrast T1, T2, FLAIR,diffusion with ADC map and post contrast T1 sequences. Additional sequence(s)sensitive to blood products. Images stored on PACS. CONTRAST TYPE/DOSE: 20mL of GADOTERATE MEGLUMINE 0.5 MMOL/ML INTRAVENOUS SOLUTION (SO) injected via intravenous COMPARISON: MRI brain dated 01/26/2023, 02/16/2022, 01/28/2022 and 06/11/2018. CT head without contrast dated 01/28/2022 and 05/03/2018. FINDINGS: There is no diffusion restriction to suggest acute/recent infarction. The bilateral basal ganglia susceptibility signal would be compatible with mineralization. The right tentorial susceptibility signal correlates to calcification on the prior CT head dated 01/28/2022. The size and configuration of the ventricles and sulci are normal for the patient's age. There is no hydrocephalus. The basilar cisterns are maintained. Right parietal tiny cortical/subcortical small chronic infarction is again seen. Elsewhere in the brain the occasional subcortical andperiventricular white matter T2/FLAIR hyperintense signal in the bilateral cerebral hemispheres is nonspecific but compatible with chronic microvascularischemic type change in a patient of this age. Overlying the anterior right temporal convexity extra-axial homogeneously enhancing 1.5 cm meningioma as seen on the previous MRI dated 01/26/2023. There is no progressive mass effect or parenchymal edema. The globes are grossly symmetric. Mucosal thickening in the bilateralethmoid air cells. There is T2 hyperintense signal in the bilateral mastoid air cells. A few scattered scalp nodules as seen on the previous MRI are nonspecific by imaging. For example left frontal 1.1 cm (series 10, image 24), left posterior vertex 1.3 cm and right lateral vertex 0.9 cm (, image 25). Please correlate with physical examination. The junction ofthe deep and superficial lobe of the right parotid gland is a 0.8 cm well-circumscribed T2 hyperintense lesion (series 11, image 3). IMPRESSION: 1. The right middle cranial fossa meningioma is similar in size when compared to the previous MRI dated 01/26/2023. No progressive mass effector parenchymal edema. 2. No acute infarction. 3. Chronic infarction, chronic microvascular ischemic type white-matter changes and additional findings as above. 4. A few scalp nodules are nonspecific by imaging. Please correlatewith physical examination. 5. Right parotid gland 0.8 cm T2 hyperintense lesion. If this is a new finding for the patient then recommend ENT consultation. THIS IS AN ELECTRONICALLY VERIFIED FINAL REPORT 08/08/2024 1:14 PM - Electronically signed by Tobias Wadsworth D.O. AP: SUSHIL Report ID: [id number] Reading Location: [place] [address] us Nguyen Heath NP IMG MRI PROCEDURES Final Result * eGFR (07/30/2024 10:14 AM PHOSPHORUS PROCESSING SUPERVISOR) eGFR >90 >=60 mL/min/1. 73 m2 Comment: [...] reviewed 2021. Blood 07/30/2024 10:1 4 AM PHOSPHORUS PROCESSING SUPERVISOR 07/30/2024 3:17 PM PHOSPHORUS PROCESSING SUPERVISOR us Nguyen Heath NP LAB BLOOD ORDERABLES Final Resul t [facility] [id number] Department of [place] [address] * (ABNORMAL) Differential, auto (07/30/2024 10:14 AM PHOSPHORUS PROCESSING SUPERVISOR) Neutrophil abs 5.3 1.5 - 6.5 K/cumm Imm gran abs 0.0 0.0 - 0.1 K/cumm [facility] Lymphocyte abs 2.4 0.8 - 3.3 K/cumm [facility] Monocyte abs 1.0(H) 0.2 - 0.8 K/cumm [facility] Eosinophil abs 0.2 0.0 - 0.5 K/cumm [facility] Basophil abs 0.1 0.0 - 0.1 K/cumm [facility] Neutrophil pct 58.9 % [facility] Comment: Interpretive Data Percent cell count reference ranges are not reported, since discordance with absolute values may lead to misinterpretation of CBC data. Current Interpretive Data was last revised on 2017. Imm gran pct 0.4 % [facility] Comment: Interpretive Data Percent cell count reference ranges are not reported, since discordance with absolute values may lead to misinterpretation of CBC data. Current Interpretive Data was last revised on 2017. Lymphocyte pct 26.1 % [facility] Comment: Interpretive Data Percent cell count reference ranges are not reported, since discordance with absolute values may lead to misinterpretation of CBC data. Current Interpretive Data was last revised on 2017. Monocyte pct 11.1 % [facility] Comment: Interpretive Data Percent cell count reference ranges are not reported, since discordance with absolute values may lead to misinterpretation of CBC data. Current Interpretive Data was last revised on 2017. Eosinophil pct 2.3 % [facility] Comment: Interpretive Data Percent cell count reference ranges are not reported, since discordance with absolute values may lead to misinterpretation of CBC data. Current Interpretive Data was last revised on 2017. Basophil pct 1.2 % [facility] Comment: Interpretive Data Percent cell count reference ranges are not reported, since discordance with absolute values may lead to misinterpretation of CBC data. Current Interpretive Data was last revised on 2017. Blood 07/30/2024 10:1 4 AM PHOSPHORUS PROCESSING SUPERVISOR 07/30/2024 3:08 PM PHOSPHORUS PROCESSING SUPERVISOR us Nguyen Heath NP LAB BLOOD ORDERABLES Final Resul t [place] [id number] [address] Department of [place] [address] * Thyroid Function [place] (07/30/2024 10:14 AM PHOSPHORUS PROCESSING SUPERVISOR) TSH 1.27 0.30 - 4.20 mcIUnit/mL Blood 07/30/2024 10:1 4 AM PHOSPHORUS PROCESSING SUPERVISOR 07/30/2024 3:08 PM PHOSPHORUS PROCESSING SUPERVISOR Nguyen Heath NP LAB BLOOD ORDERABLES Final Resul t Performing Organization Address City/[facility]/[employer] Phone Number [facility] [place] [address] [place] [address] * (ABNORMAL) CBC with auto differential (07/30/2024 10:14 AM PHOSPHORUS PROCESSING SUPERVISOR) Pathologist [facility] WBC 9.0 3.8 - 9.9 K/cumm Hgb 9.9(L) 11.9 - 15.5 g/dL [facility] Hct 34.2(L) 35.6 - 45.5 % [facility] Plt 451(H) 150 - 400 K/cumm [facility] MPV 10.2 9.1 - 12.3 fL [facility] RBC 4.60 3.90 - 5.20 M/cumm [facility] MCV 74.3(L) 81.3 - 96.4 fL [facility] MCH 21.5(L) 27.1 - 33.3 pg [facility] MCHC 28.9(L) 32.3 - 35.7 g/dL [facility] RDW CV 17.9(H) 11.1 - 14.9 % [facility] RDW SD 47.4 35.7 - 48.1 fL [facility] NRBC abs 0.00 0.00 - 0.01 K/cumm [facility] Blood 07/30/2024 10:1 4 AM PHOSPHORUS PROCESSING SUPERVISOR 07/30/2024 3:08 PM PHOSPHORUS PROCESSING SUPERVISOR Nguyen Heath NP LAB BLOOD ORDERABLES Final Resul t Performing Organization Address City/[facility]/ZIP Co de Phone Number BRIDGETTE HARTMANN [address] Department of [facility] [place] [address] * (ABNORMAL) Hemoglobin A1c (07/30/2024 10:14 AM PHOSPHORUS PROCESSING SUPERVISOR) Hgb A1C 5.9(H) 4.0 - 5.6 % Estimated Average Glucose 123 mg/dL BRIDGETTE HARTMANN Comment: The ADA recommends reporting an estimated Average Glucose (eAG) with all Hemoglobin A1c results using the equation derived from a study of 507 normal and diabetic adults. Minority populations were underrepresented and children were not included. (Diabetes Care 31:2484-0878, 2008). The eAG is not equivalent to a fasting glucose. Blood 07/30/2024 10:1 4 AM PHOSPHORUS PROCESSING SUPERVISOR 07/30/2024 3:08 PM PHOSPHORUS PROCESSING SUPERVISOR us Nguyen Heath NP LAB BLOOD ORDERABLES Final Resul t BRIDGETTE HARTMANN [address] Department of [place] [address] * (ABNORMAL) Lipid panel (07/30/2024 10:14 AM PHOSPHORUS PROCESSING SUPERVISOR) Cholesterol 212(H) 30 - 199 mg/dL Comment: [...] NCEP Expert Panel. Circulation 2004;110:227 3. Leonid Rivera et al. ALESSANDRA Cardiol. 2019October 24;5(5):540-548. doi: 10.1001/jamacardio.2020.0013 [...] CERNER CH Blood 07/30/2024 10:1 4 AM PHOSPHORUS PROCESSING SUPERVISOR 07/30/2024 3:08 PM PHOSPHORUS PROCESSING SUPERVISOR us Nguyen Heath NP LAB [place]OD [place] [address] [address] Department of [place] [address] * (ABNORMAL) Comprehensive metabolic panel (07/30/2024 10:14 AM PHOSPHORUS PROCESSING SUPERVISOR) Sodium 137 135 - 145 mmol/L Potassium, [...] CERNER CH Blood 07/30/2024 10:1 4 AM PHOSPHORUS PROCESSING SUPERVISOR 07/30/2024 3:08 PM PHOSPHORUS PROCESSING SUPERVISOR us Nguyen Heath NP LAB BLOOD ORDERABLES Final Resul t BRIDGETTE HARTMANN [address] Department of [place] [address] * Pap and HPV, reflex to HPV Genotypes (03/02/2023 10:43 AM CDT) CLINICAL INFORMATION: [facility] Comment:None given LMP [facility] Comment:NONE GIVEN Previous Pap [facility] Comment:NONE GIVEN Prev. Bx [facility] Comment:NONE GIVEN SOURCE: [facility] Comment:Cervix, Endocervix Pap, specimen adequacy [facility] Comment: Satisfactory for evaluation. Endocervical/transformation zone component present. HPV interp [facility] Comment: Cytology Results: Negative for intraepithelial lesion or malignancy. Knitting Machine Operator Helper [facility] Comment: BKA, CT(ASCP) CT screening location: [place] [address] [place] [address] [facility] Comment: EXPLANATORY NOTE: The Pap is [...] Client Letter) showing TIS test codes, see www.ThoughtFocus/Resources, and navigate to Well-Woman>Physician Materials>TIS Client Letter. You can also call for test code assistance. Human papillomavirus DNA, High Risk E6/E7 Not Detected NOT DETECTED [facility] Comment: Not Detected High Risk HPV types (16,18,31,33,35,39,45,51,52, 56,58,59,66,68) were not detected. Other HPV types which cause anogenital lesions may be present. The significance of the other types of HPV in malignant processes has not been established. Methodology: Real Time PCR Thin prep 03/02/2023 10:4 3 AM CDT 03/03/2023 2:36 AM CDT Tia Driscoll MEAT CURER LAB CYTOLOGY ORDERABLES Fin al Result [facility] [address] [place] [address] [facility] [address] [facility] [place] [address] * Screening Mammogram Bilateral W T[place]anda (02/01/2023 [...] Anaya MD - 01/25/2023 8:[address] [facility] Patient Name: Yue Michelle Procedure Date: 01/25/2023 8:36 AM Date of : 1960 Admit Type: Outpatient Age: 62 Gender: Female Attending MD: Amanda Anaya M.D. Room: [facility] 1 Note Status: Finalized [...] under direct vision. The Pediatric Colonoscope [id number]-H190L [id number] was introducedthrough the anus and advanced to [...] 8:36 AM Procedure Code(s): --- Professional --- 41730, Colonoscopy, flexible; diagnostic, including collection of specimen(s) by brushing or washing, when performed (separateprocedure) Diagnosis Code(s): --- Professional --- Z80.0, Family history of malignant neoplasm of digestive organs Z86.010, Personal history of colonic polyps K64.8, Other hemorrhoids K57.30, Diverticulosis of large intestine without perforation orabscess without bleeding CPT copyright 2020 [employer]. All rights reserved. The codes documented in this report are preliminary and upon computer language coder reviewmay be revised to meet current compliance requirements. Recognized by the [employer] for promoting quality in endoscopy Amanda Anaya MD ENDOSCOPY PROCEDURES Final Result * Hepatitis C (HCV) RNA PCR, quantitative (05/27/2019 11:48 AM PHOSPHORUS PROCESSING SUPERVISOR) HCV RNA qn Undetected Undetected IUnits/mL BRIDGETTE HERNÁNDEZ ([place]) Comment: Result in log IU/mL is Undetected. ADDITIONAL INFORMATION The quantification range of this assay is 15 to 100,000,000 IU/mL (1.18 log to 8.00 log IU/mL). Testing was performed using the mando HCV test ([employer] with the mando 6800 System. Test Performed by: [place] [address] Pier Master: Huber Haney M.D. Ph.D.; CLIA# [id number] Blood specimen (specimen) 05/27/2019 11:48 AM PHOSPHORUS PROCESSING SUPERVISOR 05/27/2019 2:22 PM PHOSPHORUS PROCESSING SUPERVISOR Nguyen Heath NP LAB MICROBIOLOGY - GENERAL ORDER LUIS Final Result BRIDGETTE HERNÁNDEZ ([place]) [address] [facility] Department [place] [address] from Last 3 Months or Most Recently Relevant to Health Maintenance Insurance [place] CHO[place] ID[place] Advance Directives For more information, please contact: [phone] * Full Code (Latest Code Status on [...] 12:12 PM 02/25/2021 7:06 PM Care Teams Bracelet Form Coverer Relationship Specialty Start Date End Date Nguyen Heath NP PCP - General Family Medicine 11/22/17 Ismael Moy MD [address] [place] [address] [place] [address] Consulting Physician Neurology 01/29/22
--- OUTSIDE RECORDS SUMMARY | 2024-08-09 13:24 | XMS_ITS | Encounter Summary ---
Author Organization [facility] Medical Group Address [address] [facility] [address] [place] [address] Care Team Providers Care Warehouse Receiving Supervisor Name Role Phone Con Del Rosario MD Primary Care Provider + [phone] Con Del Rosario MD Primary Care Provider + [phone] Con Del Rosaroi MD Primary Care Provider + [phone] Unknown, Notinfile Primary Care Provider Unavail able Nguyen Heath NP Primary Care Provider [phone] Breana Cain MD Primary Care Provide r Nguyen Heath FINANCIAL SERVICES TECHNICIAN Primary Care Provider Breana Cain MD Primary Care Provide r Nguyen Heath NP Primary Care Provider [phone] Ismael Moy MD Unavailable [phone] Encounter Details Date Type Department Care Team (Late st Contact Info) Description 09/25/2013 Orders Only [facility] Information Management [address] [place] [address] Scanning, Provider Social History Tobacco Use Types Packs/Day Years Used Date Smoking Tobacco: Some Days Alcohol Use Standard Drinks/Week Comments No 0 (1 standard drink = 0.6 oz pur e alcohol) Comments Unknown Sex and Gender Information Value Date Recorded Sex Assigned at Not on file Legal Sex Female 7:18 AM QUALITY REP Gender Identity Not on file Sexual Orientation [...] on filedocumented in this encounter Care Teams Warehouse Receiving Supervisor Relationship Specialty Start Date End Date Con Del Rosario MD [address] [facility] [address] [place] [address] PCP - General 09/23/16 11/24/16 Con Del Rosario MD 4 [facility] [address] [place] [address] PCP - General 08/20/16 09/22/16 Con Del Rosario MD 4 [facility] [address] [place] [address] PCP - General 07/31/06 08/19/16 Unknown, Notinfile PCP - General 11/25/16 02/08/17 Nguyen Heath NP PCP - General 02/09/17 09/28/17 Breana Cain MD PCP - General 09/29/17 10/02/17 Nguyen Heath NP PCP - General Family Medicine 10/03/17 10/15/17 Breana Cain MD PCP - General 10/16/17 11/21/17 Nguyen Heath NP PCP - General Family Medicine 11/22/17 Ismael Moy MD [address] [place] [address] [place] [address] Consulting Physician Neurology 01/29/22 documented as of this encounter
--- OUTSIDE RECORDS SUMMARY | 2024-08-09 13:24 | XMS_ITS | Encounter Summary ---
Author Organization [facility] Medical Group Address [address] [facility] [address] [place] [address] Care Team Providers Care Cinema Operator Name Role Phone Con Del Rosario MD Primary Care Provider + [phone] Con Del Rosario MD Primary Care Provider + [phone] Con Del Rosario MD Primary Care Provider + [phone] Unknown, Notinfile Primary Care Provider Unavail able Nguyen Heath NP Primary Care Provider [phone] Breana Cain MD Primary Care Provide r Nguyen Heath MANAGER CITY Primary Care Provider Breana Cain MD Primary Care Provide r Nguyen Heath NP Primary Care Provider [phone] Ismael Moy MD Unavailable [phone] Encounter Details Date Type Department Care Team (Late st Contact Info) Description 12/06/2013 Orders Only [facility] [place] [facility] [address] [place] [address] Scanning, Provider Social History Tobacco Use Types Packs/Day Years Used Date Smoking Tobacco: Some Days Alcohol Use Standard Drinks/Week Comments No 0 (1 standard drink = 0.6 oz pur e alcohol) Comments Unknown Sex and Gender Information Value Date Recorded Sex Assigned at Not on file Legal Sex Female 7:18 AM DIRECTOR OF INDUSTRIAL RELATIONS Gender Identity Not on file Sexual Orientation [...] on filedocumented in this encounter Care Teams Cinema Operator Relationship Specialty Start Date End Date Con Del Rosario MD [address] [facility] [address] [place] [address] PCP - General 09/23/16 11/24/16 Con Del Rosario MD [address] [facility] [address] [place] [address] PCP - General 08/20/16 09/22/16 Con Del Rosario MD [address] [facility] [address] [place] [address] PCP - General 07/31/06 08/19/16 Unknown, Notinfile PCP - General 11/25/16 02/08/17 Nguyen Heath NP PCP - General 02/09/17 09/28/17 Breana Cain MD PCP - General 09/29/17 10/02/17 Nguyen Heath NP PCP - General Family Medicine 10/03/17 10/15/17 Breana Cain MD PCP - General 10/16/17 11/21/17 Nguyen Heath NP PCP - General Family Medicine 11/22/17 Ismael Moy MD [address] [place] [address] [place] [address] Consulting Physician Neurology 01/29/22 documented as of this encounter
--- OUTSIDE RECORDS SUMMARY | 2024-08-09 13:24 | XMS_ITS | Clinical Summary ---
Author Organization [facility] Address [address], [address] [address] Phone Care Team Providers Care Cardiograph Operator Name Role Phone Provider, None Primary Care [...] age to complete this topic Care Teams Cardiograph Operator Relationship Specialty Start Date End Date Provider, None [place] PCP - General 08/23/16
--- OUTSIDE RECORDS SUMMARY | 2024-08-09 13:24 | XMS_ITS | Encounter Summary ---
Author Organization [facility] Medical Group Address [address] [facility] [address] [place] [address] Care Team Providers Care Cold Food Packer Name Role Phone Con Del Rosario MD Primary Care Provider + [phone] Con Del Rosario MD Primary Care Provider + [phone] Con Del Rosario MD Primary Care Provider + [phone] Unknown, Notinfile Primary Care Provider Unavail able Nguyen Heath NP Primary Care Provider [phone] Breana Cain MD Primary Care Provide r Nguyen Heath MACHINE TACK PULLER Primary Care Provider [phone] Breana Cain MD Primary Care Provide r Nguyen Heath NP Primary Care Provider [phone] Ismael Moy MD Unavailable [phone] Encounter Details Date Type Department Care Team (Late st Contact Info) Description 07/05/2013 Orders Only [facility] Health Information Management [address] [place] [address] Scanning, Provider Social History Tobacco Use Types Packs/Day Years Used Date Smoking Tobacco: Some Days Alcohol Use Standard Drinks/Week Comments No 0 (1 standard drink = 0.6 oz pur e alcohol) Comments Unknown Sex and Gender Information Value Date Recorded Sex Assigned at Not on file Legal Sex Female 7:18 AM SUPERVISOR LOCOMOTIVE Gender Identity Not on file Sexual Orientation [...] on filedocumented in this encounter Care Teams Cold Food Packer Relationship Specialty Start Date End Date Con Del Rosario MD [address] [facility] [address] [place] [address] PCP - General 09/23/16 11/24/16 Con Del Rosario MD [address] [facility] [address] [place] [address] PCP - General 08/20/16 09/22/16 Con Del Rosario MD [address] [facility] [address] [place] [address] PCP - General 07/31/06 08/19/16 Unknown, Notinfile PCP - General 11/25/16 02/08/17 Nguyen Heath NP PCP - General 02/09/17 09/28/17 Breana Cain MD PCP - General 09/29/17 10/02/17 Nguyen Heath NP PCP - General Family Medicine 10/03/17 10/15/17 Breana Cain MD PCP - General 10/16/17 11/21/17 Nguyen Heath NP PCP - General Family Medicine 11/22/17 Ismael Moy MD [address] [place] [address] [place] [address] Consulting Physician Neurology 01/29/22 documented as of this encounter
--- OUTSIDE RECORDS SUMMARY | 2024-08-09 13:24 | XMS_ITS | Encounter Summary ---
Author Organization [facility] Medical Group Address [address] [place] [address] Care Team Providers Care Postal Superintendent Name Role Phone Con Del Rosario MD Primary Care Provider + [phone] Con Del Rosario MD Primary Care Provider + [phone] Con Del Rosario MD Primary Care Provider + [phone] Unknown, Notinfile Primary Care Provider Unavail able Nguyen Heath NP Primary Care Provider Breana Cain MD Primary Care Provide r Nguyen Heath ORTHOPEDIC RN Primary Care Provider [phone] Breana Cain MD Primary Care Provide r Nguyen Heath NP Primary Care Provider [phone] Ismael Moy MD Unavailable [phone] Encounter Details Date Type Department Care Team (Late st Contact Info) Description 07/04/2013 Orders Only [facility] [address] [place] [address] Scanning, Provider Social History Tobacco Use Types Packs/Day Years Used Date Smoking Tobacco: Some Days Alcohol Use Standard Drinks/Week Comments No 0 (1 standard drink = 0.6 oz pur e alcohol) Comments Unknown Sex and Gender Information Value Date Recorded Sex Assigned at Not on file Legal Sex Female 7:18 AM TELETYPEWRITER INSTALLER Gender Identity Not on file Sexual Orientation [...] on filedocumented in this encounter Care Teams Postal Superintendent Relationship Specialty Start Date End Date Con Del Rosario MD 4 [facility] [address] [place] [address] PCP - General 09/23/16 11/24/16 Con Del Rosario MD 4 [facility] [address] [place] [address] PCP - General 08/20/16 09/22/16 Con Del Rosario MD 4 [facility] [address] [place] [address] PCP - General 07/31/06 08/19/16 Unknown, Notinfile PCP - General 11/25/16 02/08/17 Nguyen Heath NP PCP - General 02/09/17 09/28/17 Breana Cain MD PCP - General 09/29/17 10/02/17 Nguyen Heath NP PCP - General Family Medicine 10/03/17 10/15/17 Breana Cain MD PCP - General 10/16/17 11/21/17 Nguyen Heath NP PCP - General Family Medicine 11/22/17 Ismael Moy MD [address] [place] [address] [place] [address] Consulting Physician Neurology 01/29/22 documented as of this encounter
--- OUTSIDE RECORDS SUMMARY | 2024-08-09 13:24 | XMS_ITS | Encounter Summary ---
Author Organization [facility] Healthcare Address [address] [place] [address] Care Team Providers Care Coffin Maker Name Role Phone Nguyen Heath NP Primary Care Provider [phone] Ismael Moy MD Unavailable [phone] Reason for Visit * Reason Onset Date Comments Scheduling Appointments 12/15/2020 Confirim ing mammogram appt- no answer Encounter Details Date Type Department Care Team (Late st Contact Info) Description 12/15/2020 Telephone [facility] [address] [place] [id number] Emelina Costello RT Scheduling Appointments (Confiriming mammogram [...] on file Legal Sex Female 7:18 AM CALENDER OPERATOR HELPER Gender Identity Not on file Sexual Orientation Straight 03/15/2021 1: 30 PM CDT documented as of this encounter Plan of Treatment Not on file documented as of this encounter Visit Diagnoses Not on filedocumented in this encounter Care Teams Coffin Maker Relationship Specialty Start Date End Date Nguyen Heath NP PCP - General Family Medicine 11/22/17 Ismael Moy MD [address] [facility] [address] [place], [place] [address] [address] Consulting Physician Neurology 01/29/22 documented as of this encounter
--- OUTSIDE RECORDS SUMMARY | 2024-08-09 13:24 | XMS_ITS | Encounter Summary ---
Author Organization [facility] Healthcare Address [address] [place] [address] Care Team Providers Care Ibm Bpm Architect Name Role Phone Nguyen Heath NP Primary Care Provider [phone] Ismael Moy MD Unavailable [phone] Encounter Details Date Type Department Care Team (Late st Contact Info) Description 02/08/2021 Telephone [facility] [address] [place] [address] Lauren Ambrose, RT Social History Tobacco Use [...] on file Legal Sex Female 7:18 AM MILIEU COUNSELOR Gender Identity Not on file Sexual Orientation Straight 03/15/2021 1: 30 PM CDT documented as of this encounter Plan of Treatment Not on file documented as of this encounter Visit Diagnoses Not on filedocumented in this encounter Care Teams Ibm Bpm Architect Relationship Specialty Start Date End Date Nguyen Heath NP PCP - General Family Medicine 11/22/17 Ismael Moy MD [address] [place] [address] [address] [place] [address] Consulting Physician Neurology 01/29/22 documented as of this encounter
--- OUTSIDE RECORDS SUMMARY | 2024-08-09 13:24 | XMS_ITS | Encounter Summary ---
Author Organization [facility] Healthcare Address [address] [place] [address] Care Team Providers Care Single Pointed Operator Name Role Phone Nguyen Heath NP Primary Care Provider [phone] Ismael Moy MD Unavailable [phone] Reason for Referral * MRI/CAT/PET Scan (Routine) - Closed Specialty Diagnoses / Procedures Referred By Contac t Referred To Contact Radiology Diagnoses History of meningioma of the brain Procedures MRI Brain W WO Contrast Nguyen Heath NP [address] [facility] [address] [place] [address] Phone: tel: fax: [address] [phone] Referral ID Status Reason Start Date Expiration Date Visits Re quested Visits Authorized [id number] Closed 07/30/2024 08/29/2025 1 1 ETICIAN SPA Reason for Visit * MRI/CAT/PET Scan (Routine) - Closed Specialty Diagnoses / Procedures Referred By Contac [email or web address] Referred To Contact Radiology Diagnoses History of meningioma of the brain Procedures MRI Brain W WO Contrast Nguyen Heath NP [address] [place] [address] Phone: tel: fax: [address] [phone] Referral ID Status Reason Start Date Expiration Date Visits Re quested Visits Authorized [id number] Closed 07/30/2024 08/29/2025 1 1 Encounter Details Date Type Department Care Team (Latest Contact Info) Description 08/08/2024 11:06 AM ESTHETICIAN SPA - 08/08/2024 11:59 PM ESTHETICIAN SPA Hospital Encounter [facility] [address] [place] [address] History of meningioma of the brain Discharge Disposition: Discharge to home or self care Social History Tobacco Use Types Packs/Day Years Used Date Smoking Tobacco: Former Cigarettes 0.3 5 Smokeless Tobacco: Former Alcohol Use Standard Drinks/Week Comments No 0 [...] on file Legal Sex Female 7:18 AM ESTHETICIAN SPA Gender Identity Not on file Sexual Orientation Straight 03/15/2021 1: 30 PM CDT documented as of this encounter Medications at Time of Discharge albuterol HFA (ProAir HFA) 90 mcg/actuation inhaler Inhale 2 puffs every 4 (four) hours as needed for wheezing or shortness of breath General albuterol inhaler that is covered by insurance. 8.5 g 1 07/30/2024 6 amLODIPine-benazepr iL (LOTREL) 10-40 mg per capsule TAKE 1 CAPSULE BY MOUTH DAILY 90 capsule 3 01/08/2024 5 atorvastatin (LIPITOR) 20 mg tabletIndications:M ixed hyperlipidemia Take 1 tablet (20 mg total) by mouth daily 90 tablet 3 09/26/2023 betamethasone dipropionate (DEL-BETA) 0.05 % cream Apply topically 2 (two) times a day as needed for irritation or rash 45 g 1 11/22/2022 diphenhydrAMINE 25 mg capsule Take 1 tablet/capsule (25 mg total) by mouth every 6 (six) hours as needed for itching estradioL (ESTRACE) 1 mg tablet TAKE 1 TABLET(1 MG) BY MOUTH DAILY 90 tablet 04/09/2024 ferrous sulfate 325 mg (65 mg of elemental iron) tabletIndications:I rimma Deficiency Anemia Take 1 tablet (325 mg total) by mouth 2 (two) times a day after breakfast and dinner 60 tablet 3 07/31/2024 FLUoxetine (PROzac) 20 mg capsule Take 1 capsule (20 mg total) by mouth daily 90 capsule 1 07/30/2024 fluticasone propion-salmeteroL (ADVAIR DISKUS) 250-50 mcg/dose diskus inhaler Inhale 1 puff 2 (two) times a day Rinse mouth with water after use. Do not swallow. 1 each 1 07/30/2024 documented as of this encounter Discharge Disposition Disposition Code Departure Means Destination Discharge to home or self care documented in this encounter Plan of Treatment Not on file documented as of this encounter Procedures Procedure Name Priority Date/Time Associated Diagnosis Comments MRI BRAIN W WO CONTRAST Schedule Routine, Read Routine (OP Routine) 08/08/2024 12:17 PM ESTHETICIAN SPA History of meningioma of the brain documented in this encounter Results * MRI Brain W WO Contrast (08/08/2024 12:17 PM ESTHETICIAN SPA) Anatomical Region Laterality Modality Head and Neck N/A Magnetic Resonan ce 08/08/2024 12:2 7 PM ESTHETICIAN SPA Narrative 08/08/2024 1:14 PM ESTHETICIAN SPA EXAM DESCRIPTION: MRI BRAIN W WO CONTRAST [...] Tobias Wadsworth D.O. AP: SUSHIL Report ID: [id number] Reading Location: [id number] Procedure Note Wadsworth Tobias, DO - 08/08/2024 EXAM DESCRIPTION: MRI BRAIN [...] cm and right lateral vertex 0.9 cm ([id number], image 25). Please correlate with physical examination. [...] Tobias Wadsworth D.O. AP: SUSHIL Report ID: [id number] Reading Location: [id number] Nguyen Heath NP IM MRI PROCEDURES Final Result documented in this encounter Visit Diagnoses Diagnosis History of meningioma of the brain documented in this encounter Administered Medications Inactive Administered Medications - up to 3 most recent administrations Medication Order MAR Action Action Date Dose Rate Site gadoterate meglumine injection 20 mL 20 mL, intravenous, Once in imaging, contrast, Starting on Betsy 08/08/24 at 1132, For 1 dose Contrast Given 08/08/2024 12:16 PM ESTHETICIAN SPA 20 mL documented in this encounter Orders Medications Ordered That Trip ht Not Have Been Administered Count Last Ordered Date First Ordered Date gadoterate meglumine injection 20 mL 1 07/27 documented in this encounter Care Teams Single Pointed Operator Relationship Specialty Start Date End Date Nguyen Heath NP PCP - General Family Medicine 11/22/17 Ismael Moy MD [address] [place] [address] [place] [address] Consulting Physician Neurology 01/29/22 documented as of this encounter
--- OUTSIDE RECORDS SUMMARY | 2024-08-09 13:24 | XMS_ITS | Clinical Summary ---
Author Organization [facility] Address [address] [place] [address] Care Team Providers Care Rn Allergy Name Role Phone Nguyen Heath NP Primary Care Provider [phone] Ismael Moy MD Unavailable [phone] Allergies Active Allergy Reactions Criticality Noted Date [...] 07/30/2024 Assessment & Plan (07/30/2024 10:06 AM SILO FILLER): Went off daily inhaler due to cost. Restart advair. Continue albuterol prn History of meningioma of the brain 07/30/2024 Assessment & Plan (07/30/2024 10:05 AM SILO FILLER): Last MRI was 2022. Will order repeat MRI brain for surveillance she continues to have headaches, posterior/ occipital daily Dupuytren's contracture 07/30/2024 Assessment & Plan (07/30/2024 10:05 AM SILO FILLER): Left , 5th finger - referral to hand surgeryConor Mixed obsessional thoughts and acts 07/30/2024 Assessment & Plan (07/30/2024 10:21 AM SILO FILLER): OCD actions have worsened per patient. States [...] 11/24/2022 Assessment & Plan (07/30/2024 10:21 AM SILO FILLER): This was originally a physical. Health maintenance [...] PM CDT): Recommended she return to her lock assembler for evaluation of the chronic left dry [...] Improved. 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 She needs updated referral to Dr. De La Cruz. Assessment & Plan (08/18/2022 12:20 PM SILO FILLER): She is neurology follow-up next week with Dr. Reyes. Will refer to [facility] Dr. De La Cruz, ENT specialist, Assessment & Plan (07/20/2022 3:33 PM SILO FILLER): This is a new problem. Having quite [...] physical Assessment & Plan (07/20/2022 3:37 PM SILO FILLER): Stable. Recheck A1c Class 2 obesity with body ma ss index (BMI) of 36.0 to 36.9 in adult 07/20/2022 Assessment & Plan (11/22/2022 12:38 PM CDT): BMI Follow-up includes: exercise counseling. Assessment & Plan (07/20/2022 3:38 PM SILO FILLER): BMI Follow-up includes: nutrition counseling. Meningioma, cerebral [...] I would recommend that she go to [facility] if she can transfer there Acute intractable headache 01/28/2022 Assessment & Plan (02/01/2022 4:10 PM CDT): Try using ibuprofen instead of tylenol. May use ice/heat applied to side of head when you have the intense pain. Pt stated tramadol did not help with pain. MRI with contrast ordered. Referral to Dr. Amy shaw at [facility] Referral to ophthalmology Continue on increased losartan 100mg daily. Keep bp diary, but don't dave it. Check in the am and pm or if you feel weird . Pt to f/u with Nguyen next week Benign head tremor 06/22/2021 Assessment & Plan (07/30/2024 10:20 AM SILO FILLER): Head tremor is not new. Documented back to 2020. She does not think that it is worsened Assessment & Plan (06/22/2021 10:52 AM SILO FILLER): Will refer back to Neurology for new symptom of head tremor Gastroesophageal reflux disease 12/15/2020 Tubular adenoma of colon 12/15/2020 Family history of breast cancer in mother 2019 Arthritis of right acromioclavicular joint 05/27 Overview (05/27/2019): Added automatically from request for surgery [id number] Mixed hyperlipidemia 10/04/2018 Assessment & Plan (09/26/2023 1:59 PM CDT): Lipid abnormalities are stable, reviewed previous lipid levels in [facility]. Pharmacotherapy as ordered. Order for lipid [...] January Assessment & Plan (07/20/2022 3:21 PM SILO FILLER): Lipid abnormalities are stable, reviewed previous lipid levels in [facility]. Pharmacotherapy as ordered. Order for lipid panel was given today to be obtained. Pt voiced understanding of lab drawn and continuation of current medication regimen. Assessment & Plan (01/10/2022 11:39 AM CDT): Lipid abnormalities are stable, reviewed previous lipid levels in [facility]. Pharmacotherapy as ordered. Order for lipid panel was given today to be obtained. Pt voiced understanding of lab drawn and continuation of current medication regimen. Assessment & Plan (06/22/2021 11:04 AM SILO FILLER): Lipid abnormalities are stable. Pharmacotherapy as ordered. Lipids will be reassessed in 6 months. Assessment & Plan (12/08/2020 10:05 AM CDT): Lipid abnormalities are stable, reviewed previous lipid levels in [facility]. Pharmacotherapy as ordered. Order for lipid panel was given today to be obtained. Pt voiced understanding of lab drawn and continuation of current medication regimen. Assessment & Plan (08/20/2020 9:13 AM SILO FILLER): Lipid abnormalities are stable. Pharmacotherapy as ordered. Lipids will be reassessed in 6 months. Assessment & Plan (12/23/2019 1:50 PM CDT): Lipid abnormalities are stable. Pharmacotherapy as ordered. Lipids will be reassessed in 6 months. Assessment & Plan (05/13/2019 11:21 AM SILO FILLER): Last lipid panel 09/2018 and was WNL. Continue currently medication, lipitor 20mg. Tolerating ok. F/u 6 months Assessment & Plan (10/08/2018 9:49 AM CDT): Due for repeat lab work Basal ganglia degeneration with calcification Assessment & Plan (05/07/2018 1:59 PM SILO FILLER): Basal ganglia calcification seen on MRI - will refer to neurology for evaluation TIA (transient ischemic attack) 05/02/2018 Assessment & Plan (02/13/2022 6:07 PM CDT): Continue risk factor reduction. Continue atorvastatin. Work on diet, increase exercise, weight reduction. Will be scheduling f/u with Dr. Reyes, neurology Assessment & Plan (08/20/2020 9:14 AM SILO FILLER): History of. Remains on statin Assessment & Plan (05/02/2018 1:32 PM SILO FILLER): Hx htn, tobacco use (cigarettes) Differential includes TIA, CVA, migraines, tumor, EKG shows NSR, no change from previous EKG's. Labs as ordered. CT head as soon as can be preauth and scheduled Carotid US Chronic right-sided thoracic back pain 8 Assessment & Plan (05/02/2018 10:56 AM SILO FILLER): Has had for 9 months, points to [...] is having some sinus headaches. We discussed gzbu-jnv-dypvpip medication such as Claritin D from the [...] deficiency Assessment & Plan (07/20/2022 3:21 PM SILO FILLER): History of. Has been stable. Will recheck CBC with labs Assessment & Plan (12/23/2019 1:49 PM CDT): Will recheck CBC. Pt states she is going to wait on labs as she doesn't have insurance but is hoping to get some later this year Assessment & Plan (05/13/2019 11:20 AM SILO FILLER): Using iron patches from the Internet. Will [...] management Assessment & Plan (07/20/2022 3:21 PM SILO FILLER): Stable/ Improved. Blood pressure is adequately controlled [...] ordered. Referral to Dr. Amy shaw at [facility] Referral to ophthalmology Continue on [...] management Assessment & Plan (06/22/2021 10:52 AM SILO FILLER): Stable/ Improved. Blood pressure is adequately controlled [...] management Assessment & Plan (08/20/2020 9:13 AM SILO FILLER): Stable on current medications. We will try [...] management Assessment & Plan (05/13/2019 11:20 AM SILO FILLER): Hypertension is improving with treatment. Regular aerobic [...] Anxiety Assessment & Plan (07/30/2024 10:22 AM SILO FILLER): Depression is controlled. Anxiety is worsening. We are changing out the sertraline for fluoxetine and having her follow up in 4-6 weeks Assessment & Plan (02/20/2023 10:29 AM CDT): Improving on current medication. Continue sertraline 100 mg as ordered. May follow up in 6 months Assessment & Plan (08/18/2022 12:24 PM SILO FILLER): Improved. Continue sertraline 150 mg once daily. Assessment & Plan (07/20/2022 3:26 PM SILO FILLER): Worsening. Will increase sertraline to 150 mg [...] recheck Assessment & Plan (08/20/2020 9:14 AM SILO FILLER): Currently stable on sertraline and quetiapine. Will continue current medications and have her follow-up in 6 months Assessment & Plan (05/13/2019 11:21 AM SILO FILLER): Continue zoloft and seroquel. Assessment & Plan [...] months Assessment & Plan (08/18/2022 12:20 PM SILO FILLER): Will refer to Sleep Medicine. Patient denies [...] ordered. Referral to Dr. Amy shaw at [facility] Referral to ophthalmology Continue on [...] in your mouth on an geni like [employer] Lower carb substitutions: Aldi carries a zero [...] in much longer they will become mushy [place] and/or coconut flour instead of regular flour [...] pork rinds For yogurt, try Two Good cook islander yogurt Use Pinterest for recipe ideas. Type [...] (12/04/2020): Added automatically from request for surgery [id number] Family history of colon canc er requiring screening colonoscopy 12/04/2020 06/22/2021 Overview (12/04/2020): Added automatically from request for surgery [id number] Hx of colonic polyps 12/04/2020 022 Overview (12/04/2020): Added automatically from request for surgery [id number] Intractable migraine with status migrainosus 0 06/22/2021 [...] (05/27/2019): Added automatically from request for surgery [id number] Biceps tendinitis of right upper extremity 05/27/2019 12/23/2019 Overview (05/27/2019): Added automatically from request for surgery [id number] Mucopurulent chronic bronchitis 05/13/2019 12/23/2019 Assessment & Plan (05/13/2019 11:23 AM SILO FILLER): Will try doxycyline. If cough does not improve with a round of doxy, then discussed referral to ski edge painter. Spell of generalized weakness 06/05/2018 01/10/2022 Vertigo [...] 06/22/2021 Assessment & Plan (06/05/2017 2:29 PM SILO FILLER): Questioning that pain is radiating from her [...] labs drawn [facility] [place]. We will try to obtain records. Reordered [...] surgery Assessment & Plan (08/20/2020 9:18 AM SILO FILLER): Exam was negative. She no longer has a gallbladder. She believes it is muscular as it started after reaching for an object that was up high. She states that she will call us when she has insurance or if pain worsens for further workup Inflamed seborrheic keratosis 07/28/2012 06/22/2021 Encounters Date Type Department Care Team Description 08/08/2024 11:06 AM SILO FILLER - 08/08/2024 11:59 PM SILO FILLER Hospital Encounter [facility] [address] [place] [address] History of meningioma of the brain Discharge Disposition: Discharge to home or self care 08/01/2024 Telephone [facility] Primary Care at [address] [address] Nguyen Heath NP 07/31/2024 Orders Only [facility] Primary Care at [address] [address] Nguyen Heath NP Iron deficiency anemia secondary to inadequate dietary iron intake (Primary Dx) 07/30/2024 10:15 AM SILO FILLER Lab [facility] Outpatient Lab at [address] [address] Primary hypertension (Primary Dx) 07/30/2024 10:14 AM SILO FILLER - 07/30/2024 11:59 PM SILO FILLER Hospital Encounter [address] [address] Prediabetes; Primary hypertension; Mixed hyperlipidemia Discharge Disposition: Discharge to home or self care 07/30/2024 9:30 AM SILO FILLER Office Visit [facility] Medical [facility] Primary Care at [address] [address] Nguyen Heath NP Annual physical exam (Primary [...] Added autom atically from request for surgery [id number] Spell of generalized weakness 06/05/2018 Family History [...] on file Legal Sex Female 7:18 AM SILO FILLER Gender Identity Not on file Sexual Orientation [...] Comments Blood Pressure 114/84 07/30/2024 9:31 AM SILO FILLER Pulse 65 07/30/2024 9:31 AM SILO FILLER Temperature 36.8 C (98.2 F) 07/30/2024 9:31 AM SILO FILLER Respiratory Rate 16 07/30/2024 9:31 AM SILO FILLER Oxygen Saturation 99% 07/30/2024 9:31 AM SILO FILLER Inhaled Oxygen Concentration - - Weight 104.2 kg (229 lb 12.8 oz) 07/30/2024 9:31 AM SILO FILLER Height 165.1 cm (5' 5 ) 07/30/2024 9:31 AM SILO FILLER Body Mass Index 38.24 07/30/2024 9:31 AM SILO FILLER Plan of Treatment Health Maintenance Due Date [...] 02/17/2022, 10/03/2018 Medical Devices Implanted Type Area Sort Line Device Identifier Shelf Expiration Date Model / Serial / Lot Depuy Mitek [id number] Healix Advance Br Orthocord 4.5mm 3 [place] Suture Sterile Latex Free - [id number] Implanted:Qty: 1 on 06/05/2019 by Evangelist Rosales MD at [facility] Right: Shoulder Depuy Mitek 03/25/2022 [id number] / / [id number] [employer] Ar-[id number] Swivelock C 4.75mm 19.1mm Closed Eyelet Vent [place] Suture - [id number] Implanted:Qty: 1 on 06/05/2019 by Evangelist Rosales MD at [facility] Right: Shoulder [employer] 03/25/2021 [id number] / / [id number] Procedures Procedure Name Priority Date/Time Associated Diagnosis Comments MRI BRAIN W WO CONTRAST Schedule Routine, Read Routine (OP Routine) 08/08/2024 12:17 PM SILO FILLER History of meningioma of the brain EGFR Routine 07/30/2024 10:14 AM SILO FILLER Mixed hyperlipidemia DIFFERENTIAL AUTO Routine 07/30/2024 10:14 AM SILO FILLER Primary hypertension Mixed hyperlipidemia CBC WITH AUTO DIFFERENTIAL Routine 07/30/2024 10:14 AM SILO FILLER Primary hypertension Mixed hyperlipidemia COMPREHENSIVE METABOLIC PANEL Routine 07/30/2024 10:14 AM SILO FILLER Mixed hyperlipidemia LIPID PANEL Routine 07/30/2024 10:14 AM SILO FILLER Mixed hyperlipidemia THYROID FUNCTION CASCADE Routine 07/30/2024 10:14 AM SILO FILLER Primary hypertension HEMOGLOBIN A1C Routine 07/30/2024 10:14 AM SILO FILLER Prediabetes PAP AND HPV, REFLEX TO HPV GENOTYPES Routine 03/02/2023 10:43 AM CDT Well woman exam SCREENING MAMMOGRAM BILATERAL W TAWANDA Schedule Routine, Read Routine (OP Routine) 02/01/2023 1:15 PM CDT Screening mammogram, encounter for COLONOSCOPY 01/25/2023 8:36 AM CDT HEPATITIS C RNA, QUANTITATIVE, PCR Routine 05/27/2019 11:48 AM SILO FILLER Positive hepatitis C antibody test from Last 3 Months or Most Recently Relevant to Health Maintenance Results * MRI Brain W WO Contrast (08/08/2024 12:17 PM SILO FILLER) Anatomical Region Laterality Modality Head and Neck N/A Magnetic Resonan ce 08/08/2024 12:2 7 PM SILO FILLER Narrative 08/08/2024 1:14 PM SILO FILLER EXAM DESCRIPTION: MRI BRAIN W WO CONTRAST [...] Tobias Wadsworth D.O. AP: SUSHIL Report ID: [id number] Reading Location: [place] [address] Procedure Note Tobias Wadsworth, DO - 08/08/2024 [...] Tobias Wadsworth D.O. AP: SUSHIL Report ID: [id number] Reading Location: [place] [address] us Nguyen Heath NP IMG MRI PROCEDURES Final Result * eGFR (07/30/2024 10:14 AM SILO FILLER) eGFR >90 >=60 mL/min/1. 73 m2 Comment: [...] reviewed 2021. Blood 07/30/2024 10:1 4 AM SILO FILLER 07/30/2024 3:17 PM SILO FILLER us Nguyen Heath NP LAB BLOOD ORDERABLES Final Resul t [place] [address] [address] [place] [address] * (ABNORMAL) Differential, auto (07/30/2024 10:14 AM SILO FILLER) Neutrophil abs 5.3 1.5 - 6.5 K/cumm Imm gran abs 0.0 0.0 - 0.1 K/cumm [facility] Lymphocyte abs 2.4 0.8 - 3.3 K/cumm [facility] Monocyte abs 1.0(H) 0.2 - 0.8 K/cumm [facility] Eosinophil abs 0.2 0.0 - 0.5 K/cumm [facility] Basophil abs 0.1 0.0 - 0.1 K/cumm [facility] Neutrophil pct 58.9 % [facility] Comment: Interpretive Data Percent cell count reference ranges are not reported, since discordance with absolute values may lead to misinterpretation of CBC data. Current Interpretive Data was last revised on 2017. Imm gran pct 0.4 % [facility] Comment: Interpretive Data Percent cell count reference ranges are not reported, since discordance with absolute values may lead to misinterpretation of CBC data. Current Interpretive Data was last revised on 2017. Lymphocyte pct 26.1 % [facility] Comment: Interpretive Data Percent cell count reference ranges are not reported, since discordance with absolute values may lead to misinterpretation of CBC data. Current Interpretive Data was last revised on 2017. Monocyte pct 11.1 % [facility] Comment: Interpretive Data Percent cell count reference ranges are not reported, since discordance with absolute values may lead to misinterpretation of CBC data. Current Interpretive Data was last revised on 2017. Eosinophil pct 2.3 % [facility] Comment: Interpretive Data Percent cell count reference ranges are not reported, since discordance with absolute values may lead to misinterpretation of CBC data. Current Interpretive Data was last revised on 2017. Basophil pct 1.2 % [facility] Comment: Interpretive Data Percent cell count reference ranges are not reported, since discordance with absolute values may lead to misinterpretation of CBC data. Current Interpretive Data was last revised on 2017. Blood 07/30/2024 10:1 4 AM SILO FILLER 07/30/2024 3:08 PM SILO FILLER Nguyen Heath NP LAB BLOOD ORDERABLES Final Resul t Performing Organization Address City/[facility]/ZIP Co de Phone Number [place] [address] [address] [facility] [place] [employer] [place] [address] * Thyroid Function [place] (07/30/2024 10:14 AM SILO FILLER) Pathologist [facility] TSH 1.27 0.30 - 4.20 mcIUnit/mL Blood 07/30/2024 10:1 4 AM SILO FILLER 07/30/2024 3:08 PM SILO FILLER Nguyen Heath NP LAB BLOOD ORDERABLES Final Resul t Performing Organization Address City/[facility] de Phone Number [place] [address] [address] [facility] [employer] [place] [address] * (ABNORMAL) CBC with auto differential (07/30/2024 10:14 AM SILO FILLER) Pathologist [facility] WBC 9.0 3.8 - 9.9 K/cumm Hgb 9.9(L) 11.9 - 15.5 g/dL [facility] Hct 34.2(L) 35.6 - 45.5 % [facility] Plt 451(H) 150 - 400 K/cumm [facility] MPV 10.2 9.1 - 12.3 fL [facility] RBC 4.60 3.90 - 5.20 M/cumm [facility] MCV 74.3(L) 81.3 - 96.4 fL [facility] MCH 21.5(L) 27.1 - 33.3 pg [facility] MCHC 28.9(L) 32.3 - 35.7 g/dL [facility] RDW CV 17.9(H) 11.1 - 14.9 % [facility] CH RDW SD 47.4 35.7 - 48.1 fL [facility] NRBC abs 0.00 0.00 - 0.01 K/cumm [facility] CH Blood 07/30/2024 10:1 4 AM SILO FILLER 07/30/2024 3:08 PM SILO FILLER Nguyen Heath NP LAB BLOOD ORDERABLES Final Resul t Performing Organization Address [facility] de Phone Number [place] H[place] [address] [place] [address] * (ABNORMAL) Hemoglobin A1c (07/30/2024 10:14 AM SILO FILLER) Hgb A1C 5.9(H) 4.0 - 5.6 % Estimated Average Glucose 123 mg/dL [facility] Comment: The ADA recommends reporting an estimated Average Glucose (eAG) with all Hemoglobin A1c results using the equation derived from a study of 507 normal and diabetic adults. Minority populations were underrepresented and children were not included. (Diabetes Care 31:6621-8702, 2008). The eAG is not equivalent to a fasting glucose. Blood 07/30/2024 10:1 4 AM SILO FILLER 07/30/2024 3:08 PM SILO FILLER Nguyen Heath NP LAB BLOOD ORDERABLES Final Resul t Performing Organization Address [facility] de Phone Number [place] HART[place]N [address] [address] Department [place] [address] * (ABNORMAL) Lipid panel (07/30/2024 10:14 AM SILO FILLER) Cholesterol 212(H) 30 - 199 mg/dL Comment: [...] 3. Leonid Rivera et al. ALESSANDRA Cardiol. 2020 October 24;5(5):540-548. doi: [email or web address] Current Interpretive Data was [...] [facility] Blood 07/30/2024 10:1 4 AM SILO FILLER 07/30/2024 3:08 PM SILO FILLER us Nguyen Heath NP LAB [place] [address] [address] Department [place] [address] * (ABNORMAL) Comprehensive metabolic panel (07/30/2024 10:14 AM SILO FILLER) Sodium 137 135 - 145 mmol/L Potassium, [...] [facility] Blood 07/30/2024 10:1 4 AM SILO FILLER 07/30/2024 3:08 PM SILO FILLER Nguyen Heath NP LAB BLOOD ORDERABLES Final Resul t [place] [address] [address] Department of Laboratories [place] [id number] * Pap and HPV, reflex to HPV Genotypes (03/02/2023 10:43 AM CDT) CLINICAL INFORMATION: [facility] Comment:None given LMP [facility] Comment:NONE GIVEN Previous Pap [facility] Comment:NONE GIVEN Prev. Bx [facility] Comment:NONE GIVEN SOURCE: [facility] Comment:Cervix, Endocervix Pap, specimen adequacy [facility] Comment: Satisfactory for evaluation. Endocervical/transformation zone component present. HPV interp [facility] Comment: Cytology Results: Negative for intraepithelial lesion or malignancy. Weed Control Inspector [facility] Comment: MARGO ONEILL(ASCP) CT screening location: [place] [address] [place] [address] [facility] Comment: EXPLANATORY NOTE: The Pap is [...] Client Letter) showing TIS test codes, see [email or web address], and navigate to Well-Woman>Physician Materials>TIS Client Letter. You can also call for test code assistance. Human papillomavirus DNA, High Risk E6/E7 Not Detected NOT DETECTED [facility] Comment: Not Detected High Risk HPV types (16,18,31,33,35,39,45,51,52, 56,58,59,66,68) were not detected. Other HPV types which cause anogenital lesions may be present. The significance of the other types of HPV in malignant processes has not been established. Methodology: Real Time PCR Thin prep 03/02/2023 10:4 3 AM CDT 03/03/2023 2:36 AM CDT us Tia Driscoll NP LAB CYTOLOGY ORDERABLES Fin al Result [facility] [address] [place] [address] [employer] [address] [place] [address] * Screening Mammogram Bilateral [place] (02/01/2023 [...] MD - 01/25/2023 8:36 AM CDT [facility] Patient Name: Yue Michelle Procedure Date: 01/25/2023 8:36 AM Date of : 1960 Admit Type: Outpatient Age: 62 Gender: Female Attending MD: Amanda Anaya M.D. Room: [facility] ENDOSCOPY ROOM 1 Note Status: Finalized Patient [...] under direct vision. The Pediatric Colonoscope [id number] was introducedthrough the anus and advanced to [...] 8:36 AM Procedure Code(s): --- Professional --- 78726, Colonoscopy, flexible; diagnostic, including collection of specimen(s) by brushing or washing, when performed (separateprocedure) Diagnosis Code(s): --- Professional --- Z80.0, Family history of malignant neoplasm of digestive organs Z86.010, Personal history of colonic polyps K64.8, Other hemorrhoids K57.30, Diverticulosis of large intestine without perforation orabscess without bleeding CPT copyright 2020 [employer]. All rights reserved. The codes documented in this report are preliminary and upon insurance collector reviewmay be revised to meet current compliance requirements. Recognized by the [employer] for promoting quality in endoscopy Amanda Anaya MD ENDOSCOPY PROCEDURES Final Result * Hepatitis C (HCV) RNA PCR, quantitative (05/27/2019 11:48 AM SILO FILLER) HCV RNA qn Undetected Undetected IUnits/mL [facility] HERN[facility]Z (HELOTES) Comment: Result in log IU/mL is Undetected. ADDITIONAL INFORMATION The quantification range of this assay is 15 to 100,000,000 IU/mL (1.18 log to 8.00 log IU/mL). Testing was performed using the mando HCV test ([employer] with the mando 6800 System. Test Performed by: [place] [address] Chain Saw Operator: Huber Haney M.D. Ph.D.; CLIA# [id number] Blood specimen (specimen) 05/27/2019 11:48 AM SILO FILLER 05/27/2019 2:22 PM SILO FILLER Nguyen Heath NP LAB MICROBIOLOGY - GENERAL ORDER LUIS Final Result [facility]) [address] [facility] Department [place] [address] from Last 3 Months or Most Recently Relevant to Health Maintenance Insurance [place] CHO[place] IDPA Advance Directives For more information, please contact: [phone] * Full Code (Latest Code Status on [...] 12:12 PM 02/25/2021 7:06 PM Care Teams Rn Allergy Relationship Specialty Start Date End Date Nguyen Heath NP PCP - General Family Medicine 11/22/17 Ismael Moy MD [address] [facility] [place] [address] Consulting Physician Neurology 01/29/22
--- OUTSIDE RECORDS SUMMARY | 2024-08-09 13:24 | XMS_ITS | Encounter Summary ---
Author Organization [facility] Medical Group Address [address] [facility] [address] [place] [address] Care Team Providers Care Electric Trucker Name Role Phone Con Del Rosario MD Primary Care Provider + [phone] Con Del Rosario MD Primary Care Provider + [phone] Con Del Rosario MD Primary Care Provider + [phone] Unknown, Notinfile Primary Care Provider Unavail able Nguyen Heath NP Primary Care Provider [phone] Breana Cain MD Primary Care Provide r Nguyen Heath STEREO PLOTTER OPERATOR Primary Care Provider [phone] Breana Cain MD Primary Care Provide r Nguyne Heath NP Primary Care Provider [phone] Ismael Moy MD Unavailable [phone] Encounter Details Date Type Department Care Team (Late st Contact Info) Description 12/14/2012 Orders Only [facility] Health Information Management [address] [place] [address] Scanning, Provider Social History Tobacco Use Types Packs/Day Years Used Date Smoking Tobacco: Some Days Alcohol Use Standard Drinks/Week Comments No 0 (1 standard drink = 0.6 oz pur e alcohol) Comments Unknown Sex and Gender Information Value Date Recorded Sex Assigned at Not on file Legal Sex Female 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 Gender Identity Not on file Sexual Orientation [...] on filedocumented in this encounter Care Teams Electric Trucker Relationship Specialty Start Date End Date Con Del Rosario MD [address] [facility] [address] [place] [address] PCP - General 09/23/16 11/24/16 Con Del Rosario MD 4 [facility] [address] [place] [address] PCP - General 08/20/16 09/22/16 Con Del Rosario MD 4 [facility] [address] [place] [address] PCP - General 07/31/06 08/19/16 Unknown, Notinfile PCP - General 11/25/16 02/08/17 Nguyen Heath NP PCP - General 02/09/17 09/28/17 Breana Cain MD PCP - General 09/29/17 10/02/17 Nguyen Heath NP PCP - General Family Medicine 10/03/17 10/15/17 Breana Cain MD PCP - General 10/16/17 11/21/17 Nguyen Heath NP PCP - General Family Medicine 11/22/17 Ismael Moy MD [address] [place] [address] [place] [address] Consulting Physician Neurology 01/29/22 documented as of this encounter
--- OUTSIDE RECORDS SUMMARY | 2024-08-09 13:24 | XMS_ITS | Encounter Summary ---
Author Organization [facility] Medical Group Address [address] [facility] [address] [place] [address] Care Team Providers Care Soaker Hides Name Role Phone Con Del Rosario MD Primary Care Provider + [phone] Con Del Rosario MD Primary Care Provider + [phone] Con Del Rosario MD Primary Care Provider + [phone] Unknown, Notinfile Primary Care Provider Unavail able Nguyen Heath NP Primary Care Provider [phone] Breana Cain MD Primary Care Provide r Nguyen Heath LEGAL FINANCIAL SPECIALIST Primary Care Provider Breana Cain MD Primary Care Provide r Nguyen Heath NP Primary Care Provider Ismael Moy MD Unavailable [phone] Encounter Details Date Type Department Care Team (Late st Contact Info) Description 12/15/2009 Orders Only [facility] Health Information Management [address] [place] [address] Scanning, Provider Social History Tobacco Use Types Packs/Day Years Used Date Smoking Tobacco: Never Assessed Comments Unknown Sex and Gender Information Value Date Recorded Sex Assigned at Not on file 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 Gender Identity Not on file Sexual Orientation [...] on filedocumented in this encounter Care Teams Soaker Hides Relationship Specialty Start Date End Date Con Del Rosario MD 4 [facility] [address] [place] [address] PCP - General 09/23/16 11/24/16 Con Del Rosario MD 4 [facility] [address] [place] [address] PCP - General 08/20/16 09/22/16 Con Del Rosario MD 4 [facility] [address] [place] [address] PCP - General 07/31/06 08/19/16 Unknown, Notinfile PCP - General 11/25/16 02/08/17 Nguyen Heath NP PCP - General 02/09/17 09/28/17 Breana Cain MD PCP - General 09/29/17 10/02/17 Nguyen Heath NP PCP - General Family Medicine 10/03/17 10/15/17 Breana Cain MD PCP - General 10/16/17 11/21/17 Nguyen Heath NP PCP - General Family Medicine 11/22/17 Ismael Moy MD [address] [facility] [place] [address] Consulting Physician Neurology 01/29/22 documented as of this encounter
--- OUTSIDE RECORDS SUMMARY | 2024-08-09 13:25 | XMS_ITS | Clinical Summary ---
Author Organization [facility] Administrative Offices Address [address] [place] [id number] Care Team Providers Care Revenue Coordinator Name Role Phone Heath, Nguyen Barahona [facility] Primary Care Provider Family History Medical History Relation Name Comments [...] OR WO CAD Routine 05/31/2019 2:45 PM BUSINESS CONTINUITY COORDINATOR Visit for screening mammogram from Last 3 Months or Most Recently Relevant to Health Maintenance Results * MAMMO SCREEN BILAT W OR WO CAD (05/31/2019 2:45 PM BUSINESS CONTINUITY COORDINATOR) Anatomical Region Laterality Modality Breast Bilateral Mammography 05/31/2019 2:46 PM BUSINESS CONTINUITY COORDINATOR Impressions 06/03/2019 10:42 AM BUSINESS CONTINUITY COORDINATOR IMPRESSION: No mammographic evidence of malignancy. RECOMMENDATIONS: Routine screening mammogram in one year. DICTATION LOCATION: [facility] 06/03/2019 10:42 AM BUSINESS CONTINUITY COORDINATOR BILATERAL FULL-FIELD DIGITAL SCREENING MAMMOGRAM WITH CAD [...] screening mammogram in one year. DICTATION LOCATION: [facility] Francis Zuniga MD MAMMO ORDERABLES Final Result from Last 3 Months or Most Recently Relevant to Health Maintenance [place] [id number] Care Teams Revenue Coordinator Relationship Specialty Start Date End Date Nguyen Heath FNP PCP - General Nurse Practitioner Family 05/30/19
[2024-08-09] MEDS: KETOROLAC (*BKC) 60 MG/2 ML VIAL IM (13:35)
--- OUTSIDE RECORDS SUMMARY | 2024-08-09 13:56 | XMS_ITS | Encounter Summary ---
Author Organization [facility] Medical Group Address [address] [facility] [address] [place] [address] Care Team Providers Care Seafood Specialist Name Role Phone Con Del Rosario MD Primary Care Provider + [phone] Con Del Rosario MD Primary Care Provider + [phone] Con Del Rosario MD Primary Care Provider + [phone] Unknown, Notinfile Primary Care Provider Unavail able Nguyen Heath NP Primary Care Provider Breana Cain MD Primary Care Provide r Nguyen Heath UTILITY SYSTEM OPERATOR Primary Care Provider Breana Cain MD Primary Care Provide r Nguyen Heath NP Primary Care Provider [phone] Ismael Moy MD Unavailable [phone] Encounter Details Date Type Department Care Team (Late st Contact Info) Description 09/25/2013 Orders Only [facility] Health Information Management [address] [place] [address] Scanning, Provider Social History Tobacco Use Types Packs/Day Years Used Date Smoking Tobacco: Some Days Alcohol Use Standard Drinks/Week Comments No 0 (1 standard drink = 0.6 oz pur e alcohol) Comments Unknown Sex and Gender Information Value Date Recorded Sex Assigned at Not on file 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 Gender Identity Not on file Sexual Orientation [...] on filedocumented in this encounter Care Teams Seafood Specialist Relationship Specialty Start Date End Date Con Del Rosario MD [address] [facility] [address] [place] [address] PCP - General 09/23/16 11/24/16 Con Del Rosario MD [address] [facility] [address] [place] [address] PCP - General 08/20/16 09/22/16 Con Del Rosario MD [address] [facility] [address] [place] [address] PCP - General 07/31/06 08/19/16 Unknown, Notinfile PCP - General 11/25/16 02/08/17 Nguyen Heath NP PCP - General 02/09/17 09/28/17 Breana Cain MD PCP - General 09/29/17 10/02/17 Nguyen Heath NP PCP - General Family Medicine 10/03/17 10/15/17 Breana Cain MD PCP - General 10/16/17 11/21/17 Nguyen Heath NP PCP - General Family Medicine 11/22/17 Ismael Moy MD [address] [place] [address] [place] [address] Consulting Physician Neurology 01/29/22 documented as of this encounter
--- OUTSIDE RECORDS SUMMARY | 2024-08-09 13:56 | XMS_ITS | Encounter Summary ---
Author Organization [facility] Healthcare Address [address] [place] [address] Care Team Providers Care Concrete Rod Buster Name Role Phone Nguyen Heath NP Primary Care Provider [phone] Ismael Moy MD Unavailable [phone] Reason for Visit * Reason Onset Date Comments Scheduling Appointments 12/15/2020 Confirim ing mammogram appt- no answer Encounter Details Date Type Department Care Team (Late st Contact Info) Description 12/15/2020 Telephone [facility] [address] [place] [id number] Emelina Costello RT Scheduling Appointments (Confiriming mammogram [...] on file 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
--- OUTSIDE RECORDS SUMMARY | 2024-08-09 13:56 | XMS_ITS | Encounter Summary ---
Author Organization [facility] Healthcare Address [address] [place] [address] Care Team Providers Care Principal Strategist Name Role Phone Nguyen Heath NP Primary Care Provider [phone] Ismael Moy MD Unavailable [phone] Reason for Referral * MRI/CAT/PET Scan (Routine) - Closed Specialty Diagnoses / Procedures Referred By Contac t Referred To Contact Radiology Diagnoses History of meningioma of the brain Procedures MRI Brain W WO Contrast Nguyen Heath NP [address] [facility] [address] [place] [address] Phone: tel: fax: [address] [phone] Referral ID Status Reason Start Date Expiration Date Visits Re quested Visits Authorized [id number] Closed 07/30/2024 08/29/2025 1 1 NESS MANAGEMENT SPECIALIST Reason for Visit * MRI/CAT/PET Scan (Routine) - Closed Specialty Diagnoses / Procedures Referred By Contac nabeel Referred To Contact Radiology Diagnoses History of meningioma of the brain Procedures MRI Brain W WO Contrast Nguyen Heath NP [address] [place] [address] [place] [address] Phone: tel: fax: [address] [phone] Referral ID Status Reason Start Date Expiration Date Visits Re quested Visits Authorized [id number] Closed 07/30/2024 08/29/2025 1 1 Encounter Details Date Type Department Care Team (Latest Contact Info) Description 08/08/2024 11:06 AM BUSINESS MANAGEMENT SPECIALIST - 08/08/2024 11:59 PM BUSINESS MANAGEMENT SPECIALIST Hospital Encounter [facility] [address] [place] [address] History of meningioma of the brain Discharge [...] on file Legal Sex Female 7:18 AM BUSINESS MANAGEMENT SPECIALIST Gender Identity Not on file Sexual Orientation [...] Read Routine (OP Routine) 08/08/2024 12:17 PM BUSINESS MANAGEMENT SPECIALIST History of meningioma of the brain documented in this encounter Results * MRI Brain W WO Contrast (08/08/2024 12:17 PM BUSINESS MANAGEMENT SPECIALIST) Anatomical Region Laterality Modality Head and Neck N/A Magnetic Resonan ce 08/08/2024 12:2 7 PM BUSINESS MANAGEMENT SPECIALIST Narrative 08/08/2024 1:14 PM BUSINESS MANAGEMENT SPECIALIST EXAM DESCRIPTION: MRI BRAIN W WO CONTRAST [...] Tobias Wadsworth D.O. AP: SUSHIL Report ID: [id number] Reading Location: [id number] Procedure Note Wadsworth Tobias, DO - 08/08/2024 [...] cm and right lateral vertex 0.9 cm ([id number], image 25). Please correlate with physical examination. [...] Tobias Wadsworth D.O. AP: SUSHIL Report ID: [id number] Reading Location: [id number] Nguyen Heath NP IM MRI PROCEDURES Final [...] 1 dose Contrast Given 08/08/2024 12:16 PM BUSINESS MANAGEMENT SPECIALIST 20 mL documented in this encounter Orders Medications Ordered That Trip ht Not Have Been Administered Count Last Ordered Date First Ordered Date gadoterate meglumine injection 20 mL 1 07/27 documented in this encounter Care Teams Principal Strategist Relationship Specialty Start Date End Date Nguyen Heath NP PCP - General Family Medicine 11/22/17 Ismael Moy MD [address] [place] [address] [place] [address] Consulting Physician Neurology 01/29/22 documented as of this encounter
--- OUTSIDE RECORDS SUMMARY | 2024-08-09 13:56 | XMS_ITS | Clinical Summary ---
Author Organization [facility] Address [address] [place] [address] Care Team Providers Care Renal Medicine Specialist Name Role Phone Nguyen Heath NP Primary Care Provider [phone] Ismael Moy MD Unavailable [phone] Allergies Active Allergy Reactions Criticality Noted Date [...] 07/30/2024 Assessment & Plan (07/30/2024 10:06 AM PAID SEARCH SPECIALIST): Went off daily inhaler due to cost. Restart advair. Continue albuterol prn History of meningioma of the brain 07/30/2024 Assessment & Plan (07/30/2024 10:05 AM PAID SEARCH SPECIALIST): Last MRI was 2022. Will order repeat MRI brain for surveillance she continues to have headaches, posterior/ occipital daily Dupuytren's contracture 07/30/2024 Assessment & Plan (07/30/2024 10:05 AM PAID SEARCH SPECIALIST): Left , 5th finger - referral to hand surgeryConor Mixed obsessional thoughts and acts 07/30/2024 Assessment & Plan (07/30/2024 10:21 AM PAID SEARCH SPECIALIST): OCD actions have worsened per patient. States [...] 11/24/2022 Assessment & Plan (07/30/2024 10:21 AM PAID SEARCH SPECIALIST): This was originally a physical. Health maintenance [...] PM CDT): Recommended she return to her fresh foods clerk for evaluation of the chronic left dry [...] Improved. 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 She needs updated referral to Dr. De La Cruz. Assessment & Plan (08/18/2022 12:20 PM PAID SEARCH SPECIALIST): She is neurology follow-up next week with Dr. Reyes. Will refer to [facility] Dr. De La Cruz, ENT specialist, Assessment & Plan (07/20/2022 3:33 PM PAID SEARCH SPECIALIST): This is a new problem. Having quite [...] physical Assessment & Plan (07/20/2022 3:37 PM PAID SEARCH SPECIALIST): Stable. Recheck A1c Class 2 obesity with body ma ss index (BMI) of 36.0 to 36.9 in adult 07/20/2022 Assessment & Plan (11/22/2022 12:38 PM CDT): BMI Follow-up includes: exercise counseling. Assessment & Plan (07/20/2022 3:38 PM PAID SEARCH SPECIALIST): BMI Follow-up includes: nutrition counseling. Meningioma, cerebral [...] would recommend that she go to [facility] if she can transfer there Acute intractable headache 01/28/2022 Assessment & Plan (02/01/2022 4:10 PM CDT): Try using ibuprofen instead of tylenol. May use ice/heat applied to side of head when you have the intense pain. Pt stated tramadol did not help with pain. MRI with contrast ordered. Referral to Dr. Amy shaw at [facility] Referral to ophthalmology Continue on increased losartan 100mg daily. Keep bp diary, but don't dave it. Check in the am and pm or if you feel weird . Pt to f/u with Nguyen next week Benign head tremor 06/22/2021 Assessment & Plan (07/30/2024 10:20 AM PAID SEARCH SPECIALIST): Head tremor is not new. Documented back to 2020. She does not think that it is worsened Assessment & Plan (06/22/2021 10:52 AM PAID SEARCH SPECIALIST): Will refer back to Neurology for new symptom of head tremor Gastroesophageal reflux disease 12/15/2020 Tubular adenoma of colon 12/15/2020 Family history of breast cancer in mother 2019 Arthritis of right acromioclavicular joint 05/27 Overview (05/27/2019): Added automatically from request for surgery [id number] Mixed hyperlipidemia 10/04/2018 Assessment & Plan (09/26/2023 1:59 PM CDT): Lipid abnormalities are stable, reviewed previous lipid levels in [facility]. Pharmacotherapy as ordered. Order for [...] January Assessment & Plan (07/20/2022 3:21 PM PAID SEARCH SPECIALIST): Lipid abnormalities are stable, reviewed previous lipid levels in [facility]. Pharmacotherapy as ordered. Order for lipid panel was given today to be obtained. Pt voiced understanding of lab drawn and continuation of current medication regimen. Assessment & Plan (01/10/2022 11:39 AM CDT): Lipid abnormalities are stable, reviewed previous lipid levels in [facility]. Pharmacotherapy as ordered. Order for lipid panel was given today to be obtained. Pt voiced understanding of lab drawn and continuation of current medication regimen. Assessment & Plan (06/22/2021 11:04 AM PAID SEARCH SPECIALIST): Lipid abnormalities are stable. Pharmacotherapy as ordered. Lipids will be reassessed in 6 months. Assessment & Plan (12/08/2020 10:05 AM CDT): Lipid abnormalities are stable, reviewed previous lipid levels in [facility]. Pharmacotherapy as ordered. Order for lipid panel was given today to be obtained. Pt voiced understanding of lab drawn and continuation of current medication regimen. Assessment & Plan (08/20/2020 9:13 AM PAID SEARCH SPECIALIST): Lipid abnormalities are stable. Pharmacotherapy as ordered. Lipids will be reassessed in 6 months. Assessment & Plan (12/23/2019 1:50 PM CDT): Lipid abnormalities are stable. Pharmacotherapy as ordered. Lipids will be reassessed in 6 months. Assessment & Plan (05/13/2019 11:21 AM PAID SEARCH SPECIALIST): Last lipid panel 09/2018 and was WNL. Continue currently medication, lipitor 20mg. Tolerating ok. F/u 6 months Assessment & Plan (10/08/2018 9:49 AM CDT): Due for repeat lab work Basal ganglia degeneration with calcification Assessment & Plan (05/07/2018 1:59 PM PAID SEARCH SPECIALIST): Basal ganglia calcification seen on MRI - will refer to neurology for evaluation TIA (transient ischemic attack) 05/02/2018 Assessment & Plan (02/13/2022 6:07 PM CDT): Continue risk factor reduction. Continue atorvastatin. Work on diet, increase exercise, weight reduction. Will be scheduling f/u with Dr. Reyes, neurology Assessment & Plan (08/20/2020 9:14 AM PAID SEARCH SPECIALIST): History of. Remains on statin Assessment & Plan (05/02/2018 1:32 PM PAID SEARCH SPECIALIST): Hx htn, tobacco use (cigarettes) Differential includes TIA, CVA, migraines, tumor, EKG shows NSR, no change from previous EKG's. Labs as ordered. CT head as soon as can be preauth and scheduled Carotid US Chronic right-sided thoracic back pain 8 Assessment & Plan (05/02/2018 10:56 AM PAID SEARCH SPECIALIST): Has had for 9 months, points to [...] is having some sinus headaches. We discussed lbwm-xby-axdhovf medication such as Claritin D from the [...] deficiency Assessment & Plan (07/20/2022 3:21 PM PAID SEARCH SPECIALIST): History of. Has been stable. Will recheck CBC with labs Assessment & Plan (12/23/2019 1:49 PM CDT): Will recheck CBC. Pt states she is going to wait on labs as she doesn't have insurance but is hoping to get some later this year Assessment & Plan (05/13/2019 11:20 AM PAID SEARCH SPECIALIST): Using iron patches from the Internet. Will [...] management Assessment & Plan (07/20/2022 3:21 PM PAID SEARCH SPECIALIST): Stable/ Improved. Blood pressure is adequately controlled [...] ordered. Referral to Dr. Amy shaw at [facility] Referral to ophthalmology Continue on increased losartan [...] management Assessment & Plan (06/22/2021 10:52 AM PAID SEARCH SPECIALIST): Stable/ Improved. Blood pressure is adequately controlled [...] management Assessment & Plan (08/20/2020 9:13 AM PAID SEARCH SPECIALIST): Stable on current medications. We will try [...] management Assessment & Plan (05/13/2019 11:20 AM PAID SEARCH SPECIALIST): Hypertension is improving with treatment. Regular aerobic [...] Anxiety Assessment & Plan (07/30/2024 10:22 AM PAID SEARCH SPECIALIST): Depression is controlled. Anxiety is worsening. We are changing out the sertraline for fluoxetine and having her follow up in 4-6 weeks Assessment & Plan (02/20/2023 10:29 AM CDT): Improving on current medication. Continue sertraline 100 mg as ordered. May follow up in 6 months Assessment & Plan (08/18/2022 12:24 PM PAID SEARCH SPECIALIST): Improved. Continue sertraline 150 mg once daily. Assessment & Plan (07/20/2022 3:26 PM PAID SEARCH SPECIALIST): Worsening. Will increase sertraline to 150 mg [...] recheck Assessment & Plan (08/20/2020 9:14 AM PAID SEARCH SPECIALIST): Currently stable on sertraline and quetiapine. Will continue current medications and have her follow-up in 6 months Assessment & Plan (05/13/2019 11:21 AM PAID SEARCH SPECIALIST): Continue zoloft and seroquel. Assessment & Plan [...] months Assessment & Plan (08/18/2022 12:20 PM PAID SEARCH SPECIALIST): Will refer to Sleep Medicine. Patient denies [...] ordered. Referral to Dr. Amy shaw at [facility] Referral to ophthalmology Continue on increased losartan [...] in your mouth on an geni like Plored Lower carb substitutions: [employer] carries a zero [...] in much longer they will become mushy [place] and/or coconut flour instead of regular flour [...] pork rinds For yogurt, try Two Good mosotho yogurt Use Pinterest for recipe ideas. Type [...] (12/04/2020): Added automatically from request for surgery [id number] Family history of colon canc er requiring screening colonoscopy 12/04/2020 06/22/2021 Overview (12/04/2020): Added automatically from request for surgery [id number] Hx of colonic polyps 12/04/2020 022 Overview (12/04/2020): Added automatically from request for surgery [id number] Intractable migraine with status migrainosus 0 06/22/2021 [...] (05/27/2019): Added automatically from request for surgery [id number] Biceps tendinitis of right upper extremity 05/27/2019 12/23/2019 Overview (05/27/2019): Added automatically from request for surgery [id number] Mucopurulent chronic bronchitis 05/13/2019 12/23/2019 Assessment & Plan (05/13/2019 11:23 AM PAID SEARCH SPECIALIST): Will try doxycyline. If cough does not improve with a round of doxy, then discussed referral to breakfast server. Spell of generalized weakness 06/05/2018 01/10/2022 Vertigo [...] 06/22/2021 Assessment & Plan (06/05/2017 2:29 PM PAID SEARCH SPECIALIST): Questioning that pain is radiating from her [...] surgery Assessment & Plan (08/20/2020 9:18 AM PAID SEARCH SPECIALIST): Exam was negative. She no longer has a gallbladder. She believes it is muscular as it started after reaching for an object that was up high. She states that she will call us when she has insurance or if pain worsens for further workup Inflamed seborrheic keratosis 07/28/2012 06/22/2021 Encounters Date Type Department Care Team Description 08/08/2024 11:06 AM PAID SEARCH SPECIALIST - 08/08/2024 11:59 PM PAID SEARCH SPECIALIST Hospital Encounter [facility] [address] [place] [address] History of meningioma of the brain Discharge Disposition: Discharge to home or self care 08/01/2024 Telephone [facility] Primary Care at [address] [address] Nguyen Heath NP 07/31/2024 Orders Only [facility] Primary Care at [address] [address] Nguyen Heath NP Iron deficiency anemia secondary to inadequate dietary iron intake (Primary Dx) 07/30/2024 10:15 AM PAID SEARCH SPECIALIST Lab [facility] Outpatient Lab at [address] [address] Primary hypertension (Primary Dx) 07/30/2024 10:14 AM PAID SEARCH SPECIALIST - 07/30/2024 11:59 PM PAID SEARCH SPECIALIST Hospital Encounter [address] [address] Prediabetes; Primary hypertension; Mixed hyperlipidemia Discharge Disposition: Discharge to home or self care 07/30/2024 9:30 AM PAID SEARCH SPECIALIST Office Visit [facility] Primary Care at [address] [address] Nguyen eHath NP Annual physical exam (Primary Dx); Dupuytren's [...] Added autom atically from request for surgery [id number] Spell of generalized weakness 06/05/2018 Family History [...] on file Legal Sex Female 7:18 AM PAID SEARCH SPECIALIST Gender Identity Not on file Sexual [...] Comments Blood Pressure 114/84 07/30/2024 9:31 AM PAID SEARCH SPECIALIST Pulse 65 07/30/2024 9:31 AM PAID SEARCH SPECIALIST Temperature 36.8 C (98.2 F) 07/30/2024 9:31 AM PAID SEARCH SPECIALIST Respiratory Rate 16 07/30/2024 9:31 AM PAID SEARCH SPECIALIST Oxygen Saturation 99% 07/30/2024 9:31 AM PAID SEARCH SPECIALIST Inhaled Oxygen Concentration - - Weight 104.2 kg (229 lb 12.8 oz) 07/30/2024 9:31 AM PAID SEARCH SPECIALIST Height 165.1 cm (5' 5 ) 07/30/2024 9:31 AM PAID SEARCH SPECIALIST Body Mass Index 38.24 07/30/2024 9:31 AM PAID SEARCH SPECIALIST Plan of Treatment Health Maintenance Due Date [...] 02/17/2022, 10/03/2018 Medical Devices Implanted Type Area Chief Of Vital Statistics Device Identifier Shelf Expiration Date Model / Serial / Lot Depuy Mitek [id number] Healix Advance Br Orthocord 4.5mm 3 [place] Suture Sterile Latex Free - [id number] Implanted:Qty: 1 on 06/05/2019 by Evangelist Rosales MD at [facility] Right: Shoulder Depuy Mitek 03/25/2022 [id number] / / [id number] [employer] Ar-[id number] Swivelock C 4.75mm 19.1mm Closed Eyelet Vent [place] Suture - [id number] Implanted:Qty: 1 on 06/05/2019 by Evangelist Rosales MD at [facility] Right: Shoulder [employer] 03/25/2021 [id number] / / [id number] Procedures Procedure Name Priority Date/Time Associated Diagnosis Comments MRI BRAIN W WO CONTRAST Schedule Routine, Read Routine (OP Routine) 08/08/2024 12:17 PM PAID SEARCH SPECIALIST History of meningioma of the brain EGFR Routine 07/30/2024 10:14 AM PAID SEARCH SPECIALIST Mixed hyperlipidemia DIFFERENTIAL AUTO Routine 07/30/2024 10:14 AM PAID SEARCH SPECIALIST Primary hypertension Mixed hyperlipidemia CBC WITH AUTO DIFFERENTIAL Routine 07/30/2024 10:14 AM PAID SEARCH SPECIALIST Primary hypertension Mixed hyperlipidemia COMPREHENSIVE METABOLIC PANEL Routine 07/30/2024 10:14 AM PAID SEARCH SPECIALIST Mixed hyperlipidemia LIPID PANEL Routine 07/30/2024 10:14 AM PAID SEARCH SPECIALIST Mixed hyperlipidemia THYROID FUNCTION CASCADE Routine 07/30/2024 10:14 AM PAID SEARCH SPECIALIST Primary hypertension HEMOGLOBIN A1C Routine 07/30/2024 10:14 AM PAID SEARCH SPECIALIST Prediabetes PAP AND HPV, REFLEX TO HPV GENOTYPES Routine 03/02/2023 10:43 AM CDT Well woman exam SCREENING MAMMOGRAM BILATERAL W TAWANDA Schedule Routine, Read Routine (OP Routine) 02/01/2023 1:15 PM CDT Screening mammogram, encounter for COLONOSCOPY 01/25/2023 8:36 AM CDT HEPATITIS C RNA, QUANTITATIVE, PCR Routine 05/27/2019 11:48 AM PAID SEARCH SPECIALIST Positive hepatitis C antibody test from Last 3 Months or Most Recently Relevant to Health Maintenance Results * MRI Brain W WO Contrast (08/08/2024 12:17 PM PAID SEARCH SPECIALIST) Anatomical Region Laterality Modality Head and Neck N/A Magnetic Resonan ce 08/08/2024 12:2 7 PM PAID SEARCH SPECIALIST Narrative 08/08/2024 1:14 PM PAID SEARCH SPECIALIST EXAM DESCRIPTION: MRI BRAIN W WO [...] Tobias Wadsworth D.O. AP: SUSHIL Report ID: [id number] Reading Location: [place] [address] Procedure Note Tobias Wadsworth, DO - 08/08/2024 [...] cm and right lateral vertex 0.9 cm ([id number], image 25). Please correlate with physical examination. [...] Tobias Wadsworth D.O. AP: SUSHIL Report ID: [id number] Reading Location: [place] [address] us Nguyen Heath NP IMG MRI PROCEDURES Final Result * eGFR (07/30/2024 10:14 AM PAID SEARCH SPECIALIST) eGFR >90 >=60 mL/min/1. 73 m2 Comment: [...] reviewed 2021. Blood 07/30/2024 10:1 4 AM PAID SEARCH SPECIALIST 07/30/2024 3:17 PM PAID SEARCH SPECIALIST us Nguyen Heath NP LAB BLOOD ORDERABLES Final Resul t [place] [address] [address] [place] Department of [employer] [place] [address] * (ABNORMAL) Differential, auto (07/30/2024 10:14 AM PAID SEARCH SPECIALIST) Neutrophil abs 5.3 1.5 - 6.5 K/cumm Imm gran abs 0.0 0.0 - 0.1 K/cumm [facility] Lymphocyte abs 2.4 0.8 - 3.3 K/cumm [facility] Monocyte abs 1.0(H) 0.2 - 0.8 K/cumm [facility] Eosinophil abs 0.2 0.0 - 0.5 K/cumm [facility] Basophil abs 0.1 0.0 - 0.1 K/cumm [facility] Neutrophil pct 58.9 % [facility] Comment: Interpretive Data Percent cell count reference ranges are not reported, since discordance with absolute values may lead to misinterpretation of CBC data. Current Interpretive Data was last revised on 2017. Imm gran pct 0.4 % [facility] Comment: Interpretive Data Percent cell count reference ranges are not reported, since discordance with absolute values may lead to misinterpretation of CBC data. Current Interpretive Data was last revised on 2017. Lymphocyte pct 26.1 % [facility] Comment: Interpretive Data Percent cell count reference ranges are not reported, since discordance with absolute values may lead to misinterpretation of CBC data. Current Interpretive Data was last revised on 2017. Monocyte pct 11.1 % [facility] Comment: Interpretive Data Percent cell count reference ranges are not reported, since discordance with absolute values may lead to misinterpretation of CBC data. Current Interpretive Data was last revised on 2017. Eosinophil pct 2.3 % [facility] Comment: Interpretive Data Percent cell count reference ranges are not reported, since discordance with absolute values may lead to misinterpretation of CBC data. Current Interpretive Data was last revised on 2017. Basophil pct 1.2 % [facility] Comment: Interpretive Data Percent cell count reference ranges are not reported, since discordance with absolute values may lead to misinterpretation of CBC data. Current Interpretive Data was last revised on 2017. Blood 07/30/2024 10:1 4 AM PAID SEARCH SPECIALIST 07/30/2024 3:08 PM PAID SEARCH SPECIALIST Nguyen Heath NP LAB BLOOD ORDERABLES Final Resul t Performing Organization Address City/[facility]/ZIP Co de Phone Number [place] [address] [facility] [address] [place] [address] * Thyroid Function Beadle (07/30/2024 10:14 AM PAID SEARCH SPECIALIST) Pathologist [facility] TSH 1.27 0.30 - 4.20 mcIUnit/mL Blood 07/30/2024 10:1 4 AM PAID SEARCH SPECIALIST 07/30/2024 3:08 PM PAID SEARCH SPECIALIST Nguyen Heath NP LAB BLOOD ORDERABLES Final Resul t Performing Organization Address City/[facility] de Phone Number [place] [address] [address] [employer] [address] [place] [address] * (ABNORMAL) CBC with auto differential (07/30/2024 10:14 AM PAID SEARCH SPECIALIST) Pathologist [facility] WBC 9.0 3.8 - 9.9 K/cumm Hgb 9.9(L) 11.9 - 15.5 g/dL [facility] Hct 34.2(L) 35.6 - 45.5 % [facility] Plt 451(H) 150 - 400 K/cumm [facility] MPV 10.2 9.1 - 12.3 fL [facility] RBC 4.60 3.90 - 5.20 M/cumm [facility] MCV 74.3(L) 81.3 - 96.4 fL [facility] MCH 21.5(L) 27.1 - 33.3 pg [facility] MCHC 28.9(L) 32.3 - 35.7 g/dL [facility] RDW CV 17.9(H) 11.1 - 14.9 % [facility] CH RDW SD 47.4 35.7 - 48.1 fL [facility] NRBC abs 0.00 0.00 - 0.01 K/cumm [facility] CH Blood 07/30/2024 10:1 4 AM PAID SEARCH SPECIALIST 07/30/2024 3:08 PM PAID SEARCH SPECIALIST Nguyen Heath NP LAB BLOOD ORDERABLES Final Resul t Performing Organization Address [facility] de Phone Number [place]N [address] [address] [place] [address] * (ABNORMAL) Hemoglobin A1c (07/30/2024 10:14 AM PAID SEARCH SPECIALIST) Hgb A1C 5.9(H) 4.0 - 5.6 % Estimated Average Glucose 123 mg/dL [facility] [place] Comment: The ADA recommends reporting an estimated Average Glucose (eAG) with all Hemoglobin A1c results using the equation derived from a study of 507 normal and diabetic adults. Minority populations were underrepresented and children were not included. (Diabetes Care 31:5882-8956, 2008). The eAG is not equivalent to a fasting glucose. Blood 07/30/2024 10:1 4 AM PAID SEARCH SPECIALIST 07/30/2024 3:08 PM PAID SEARCH SPECIALIST Nguyen Heath NP LAB BLOOD ORDERABLES Final Resul t Performing Organization Address [facility] de Phone Number [place] [address] [address] Department [place] [address] * (ABNORMAL) Lipid panel (07/30/2024 10:14 AM PAID SEARCH SPECIALIST) Cholesterol 212(H) 30 - 199 mg/dL Comment: [...] [facility] Blood 07/30/2024 10:1 4 AM PAID SEARCH SPECIALIST 07/30/2024 3:08 PM PAID SEARCH SPECIALIST us Nguyen Heath NP LAB [place] [address] [address] [place] Department [place] [address] * (ABNORMAL) Comprehensive metabolic panel (07/30/2024 10:14 AM PAID SEARCH SPECIALIST) Sodium 137 135 - 145 mmol/L Potassium, [...] [facility] Blood 07/30/2024 10:1 4 AM PAID SEARCH SPECIALIST 07/30/2024 3:08 PM PAID SEARCH SPECIALIST Nguyen Heath NP LAB BLOOD ORDERABLES Final Resul t [place] [address] [address] [place] Department of Laboratories [place] [id number] * Pap and HPV, reflex to HPV Genotypes (03/02/2023 10:43 AM CDT) CLINICAL INFORMATION: [facility] Comment:None given LMP [facility] Comment:NONE GIVEN Previous Pap [facility] Comment:NONE GIVEN Prev. Bx [facility] Comment:NONE GIVEN SOURCE: [facility] Comment:Cervix, Endocervix Pap, specimen adequacy [facility] Comment: Satisfactory for evaluation. Endocervical/transformation zone component present. HPV interp [facility] Comment: Cytology Results: Negative for intraepithelial lesion or malignancy. [employer] [facility] Comment: MARGO ONEILL(ASCP) CT screening location: [place] [address] [place] [address] Comment [facility] Comment: EXPLANATORY NOTE: The Pap is [...] Client Letter) showing TIS test codes, see [email or web address], and navigate to Well-Woman>Physician Materials>TIS Client Letter. You can also call for test code assistance. Human papillomavirus DNA, High Risk E6/E7 Not Detected NOT DETECTED [facility] Comment: Not Detected High Risk HPV types (16,18,31,33,35,39,45,51,52, 56,58,59,66,68) were not detected. Other HPV types which cause anogenital lesions may be present. The significance of the other types of HPV in malignant processes has not been established. Methodology: Real Time PCR Thin prep 03/02/2023 10:4 3 AM CDT 03/03/2023 2:36 AM CDT us Tia Driscoll NP LAB CYTOLOGY ORDERABLES Fin al Result DEN[facility] [address] [place] [address] [facility] [address] [address] * Screening Mammogram Bilateral W T[place]anda (02/01/2023 [...] MD - 01/25/2023 8:36 AM CDT [facility] Patient Name: Yue Michelle Procedure Date: 01/25/2023 8:36 AM Date of : 1960 Admit Type: Outpatient Age: 62 Gender: Female Attending MD: Amanda Anaya M.D. Room: [facility] 1 Note Status: Finalized [...] under direct vision. The Pediatric Colonoscope PCF-H190L [id number] was introducedthrough the anus and advanced to [...] 8:36 AM Procedure Code(s): --- Professional --- 53388, Colonoscopy, flexible; diagnostic, including collection of specimen(s) by brushing or washing, when performed (separateprocedure) Diagnosis Code(s): --- Professional --- Z80.0, Family history of malignant neoplasm of digestive organs Z86.010, Personal history of colonic polyps K64.8, Other hemorrhoids K57.30, Diverticulosis of large intestine without perforation orabscess without bleeding CPT copyright 2020 [employer]. All rights reserved. The codes documented in this report are preliminary and upon eyeglass inspector reviewmay be revised to meet current compliance requirements. Recognized by the [employer] for promoting quality in endoscopy Amanda Anaya MD ENDOSCOPY PROCEDURES Final Result * Hepatitis C (HCV) RNA PCR, quantitative (05/27/2019 11:48 AM PAID SEARCH SPECIALIST) HCV RNA qn Undetected Undetected IUnits/mL [place] HERNÁNDEZ ([place]OVADA) Comment: Result in log IU/mL is Undetected. ADDITIONAL INFORMATION The quantification range of this assay is 15 to 100,000,000 IU/mL (1.18 log to 8.00 log IU/mL). Testing was performed using the mando HCV test ([employer] with the mando [id number] System. Test Performed by: [place] [address] Administration Specialist: Huber Haney M.D. Ph.D.; CLIA# [id number] Blood specimen (specimen) 05/27/2019 11:48 AM PAID SEARCH SPECIALIST 05/27/2019 2:22 PM PAID SEARCH SPECIALIST Nguyen Heath NP LAB MICROBIOLOGY - GENERAL ORDER LUIS Final Result [facility]) 1 [facility] Department [place] [address] from Last 3 Months or Most Recently Relevant to Health Maintenance Insurance [place] CHO[place] ID[place] Advance Directives For more information, please contact: [phone] * Full Code (Latest Code Status on [...] 12:12 PM 02/25/2021 7:06 PM Care Teams Renal Medicine Specialist Relationship Specialty Start Date End Date Nguyen Heath NP PCP - General Family Medicine 11/22/17 Ismael Moy MD [address] [place] [address] Consulting Physician Neurology 01/29/22
--- OUTSIDE RECORDS SUMMARY | 2024-08-09 13:56 | XMS_ITS | Encounter Summary ---
Author Organization [facility] Address [address] [facility] [address] [place] [address] Care Team Providers Care Mate Relief Name Role Phone Con Del Rosario MD Primary Care Provider + [phone] Con Del Rosario MD Primary Care Provider + [phone] Con Del Rosario MD Primary Care Provider + [phone] Unknown, Notinfile Primary Care Provider Unavail able Nguyen Heath NP Primary Care Provider Breana Cain MD Primary Care Provide r Nguyen Heath RELATIONSHIP MGR Primary Care Provider Breana Cain MD Primary Care Provide r Nguyen Heath NP Primary Care Provider [phone] Ismael Moy MD Unavailable [phone] Encounter Details Date Type Department Care Team (Late st Contact Info) Description 07/04/2013 Orders Only [facility] [place] Information Management [address] [place] [address] Scanning, Provider Social History Tobacco Use Types Packs/Day Years Used Date Smoking Tobacco: Some Days Alcohol Use Standard Drinks/Week Comments No 0 (1 standard drink = 0.6 oz pur e alcohol) Comments Unknown Sex and Gender Information Value Date Recorded Sex Assigned at Not on file 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 Gender Identity Not on file Sexual Orientation [...] on filedocumented in this encounter Care Teams Mate Relief Relationship Specialty Start Date End Date Con Del Rosario MD [address] [facility] [address] [place] [address] PCP - General 09/23/16 11/24/16 Con Del Rosario MD [address] [facility] [address] [place] [address] PCP - General 08/20/16 09/22/16 Con Del Rosario MD [address] [facility] [address] [place] [address] PCP - General 07/31/06 08/19/16 Unknown, Notinfile PCP - General 11/25/16 02/08/17 Nguyen Heath NP PCP - General 02/09/17 09/28/17 Breana Cain MD PCP - General 09/29/17 10/02/17 Nguyen Heath NP PCP - General Family Medicine 10/03/17 10/15/17 Breana Cain MD PCP - General 10/16/17 11/21/17 Nguyen Heath NP PCP - General Family Medicine 11/22/17 Ismael Moy MD [address] [place] [address] [place] [address] Consulting Physician Neurology 01/29/22 documented as of this encounter
--- OUTSIDE RECORDS SUMMARY | 2024-08-09 13:56 | XMS_ITS | Clinical Summary ---
Author Organization [facility] Address [address], [address] [address] Phone Care Team Providers Care Belt Dresser Name Role Phone Provider, None Primary Care [...] age to complete this topic Care Teams Belt Dresser Relationship Specialty Start Date End Date Provider, None [place] PCP - General 08/23/16
--- OUTSIDE RECORDS SUMMARY | 2024-08-09 13:56 | XMS_ITS | Encounter Summary ---
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
--- OUTSIDE RECORDS SUMMARY | 2024-08-09 13:56 | XMS_ITS | Encounter Summary ---
Author Organization [facility] Address [address] [facility] [address] [place] [address] Care Team Providers Care Hairspring I Inspector Name Role Phone Con Del Rosario MD Primary Care Provider + [phone] Con Del Rosario MD Primary Care Provider + [phone] Con Del Rosario MD Primary Care Provider + [phone] Unknown, Notinfile Primary Care Provider Unavail able Nguyen Heath NP Primary Care Provider Breana Cain MD Primary Care Provide r Nguyen eHath PRESCHOOL PROGRAM DIRECTOR Primary Care Provider [phone] Breana Cain MD Primary Care Provide r Nguyen Heath NP Primary Care Provider [phone] Ismael Moy MD Unavailable [phone] Encounter Details Date Type Department Care Team (Late st Contact Info) Description 12/06/2013 Orders Only [facility] [place] Health Information Management [address] [place] [address] Scanning, Provider Social History Tobacco Use Types Packs/Day Years Used Date Smoking Tobacco: Some Days Alcohol Use Standard Drinks/Week Comments No 0 (1 standard drink = 0.6 oz pur e alcohol) Comments Unknown Sex and Gender Information Value Date Recorded Sex Assigned at Not on file 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 Gender Identity Not on file Sexual Orientation [...] on filedocumented in this encounter Care Teams Hairspring I Inspector Relationship Specialty Start Date End Date Con Del Rosario MD [address] [facility] [address] [place] [address] PCP - General 09/23/16 11/24/16 Con Del Rosario MD [address] [facility] [address] [place] [address] PCP - General 08/20/16 09/22/16 Con Del Rosario MD [address] [facility] [address] [place] [address] PCP - General 07/31/06 08/19/16 Unknown, Notinfile PCP - General 11/25/16 02/08/17 Nguyen Heath NP PCP - General 02/09/17 09/28/17 Breana Cain MD PCP - General 09/29/17 10/02/17 Nguyen Heath NP PCP - General Family Medicine 10/03/17 10/15/17 Breana Cain MD PCP - General 10/16/17 11/21/17 Nguyen Heath NP PCP - General Family Medicine 11/22/17 Ismael Moy MD [address] [place] [address] [place] [address] Consulting Physician Neurology 01/29/22 documented as of this encounter
--- OUTSIDE RECORDS SUMMARY | 2024-08-09 13:56 | XMS_ITS | Encounter Summary ---
Author Organization [facility] Address [address] [facility] [address] [place] [address] Care Team Providers Care Airline Reservationist Name Role Phone Con eDl Rosario MD Primary Care Provider + [phone] Con Del Rosario MD Primary Care Provider + [phone] Con Del Rosario MD Primary Care Provider + [phone] Unknown, Notinfile Primary Care Provider Unavail able Nguyen Heath NP Primary Care Provider Breana Cain MD Primary Care Provide r Nguyen Heath KEY WORKER Primary Care Provider [phone] Breana Cain MD Primary Care Provide r Nguyen Heath NP Primary Care Provider [phone] Ismael Moy MD Unavailable [phone] Encounter Details Date Type Department Care Team (Late st Contact Info) Description 12/14/2012 Orders Only [facility] [place] Health Information Management [address] [place] [address] Scanning, Provider Social History Tobacco Use Types Packs/Day Years Used Date Smoking Tobacco: Some Days Alcohol Use Standard Drinks/Week Comments No 0 (1 standard drink = 0.6 oz pur e alcohol) Comments Unknown Sex and Gender Information Value Date Recorded Sex Assigned at Not on file 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 Gender Identity Not on file Sexual [...] on filedocumented in this encounter Care Teams Airline Reservationist Relationship Specialty Start Date End Date Con Del Rosario MD [address] [facility] [address] [place] [address] PCP - General 09/23/16 11/24/16 Con Del Rosario MD [address] [facility] [address] [place] [address] PCP - General 08/20/16 09/22/16 Con Del Rosario MD [address] [facility] [address] [place] [address] PCP - General 07/31/06 08/19/16 Unknown, Notinfile PCP - General 11/25/16 02/08/17 Nguyen Heath NP PCP - General 02/09/17 09/28/17 Breana Cain MD PCP - General 09/29/17 10/02/17 Nguyen Heath NP PCP - General Family Medicine 10/03/17 10/15/17 Breana Cain MD PCP - General 10/16/17 11/21/17 Nguyen Heath NP PCP - General Family Medicine 11/22/17 Ismael Moy MD [address] [place] [address] [place] [address] Consulting Physician Neurology 01/29/22 documented as of this encounter
--- OUTSIDE RECORDS SUMMARY | 2024-08-09 13:56 | XMS_ITS | Encounter Summary ---
Author Organization [facility] Address [address] [place] [address] Care Team Providers Care Air Reduction Equipment Operator Name Role Phone Con Del Rosario MD Primary Care Provider + [phone] Con Del Rosario MD Primary Care Provider + [phone] Con Del Rosario MD Primary Care Provider + [phone] Unknown, Notinfile Primary Care Provider Unavail able Nguyen Heath NP Primary Care Provider Breana Cain MD Primary Care Provide r Nguyen Heath INSTRUCTOR PHYSICAL Primary Care Provider [phone] Breana Cain MD Primary Care Provide r Nguyen Heath NP Primary Care Provider Ismael Moy MD Unavailable [phone] Encounter Details Date Type Department Care Team (Late st Contact Info) Description 12/15/2009 Orders Only [facility] [place] Health Information Management [address] [place] [address] Scanning, Provider Social History Tobacco Use Types Packs/Day Years Used Date Smoking Tobacco: Never Assessed Comments Unknown Sex and Gender Information Value Date Recorded Sex Assigned at Not on file 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 Gender Identity Not on file Sexual [...] on filedocumented in this encounter Care Teams Air Reduction Equipment Operator Relationship Specialty Start Date End Date Con Del Rosario MD [address] [facility] [address] [place] [address] PCP - General 09/23/16 11/24/16 Con Del Rosario MD [address] [facility] [address] [place] [address] PCP - General 08/20/16 09/22/16 Con Del Rosario MD [address] [facility] [address] [place] [address] PCP - General 07/31/06 08/19/16 Unknown, Notinfile PCP - General 11/25/16 02/08/17 Nguyen Heath NP PCP - General 02/09/17 09/28/17 Breana Cain MD PCP - General 09/29/17 10/02/17 Nguyen Heath NP PCP - General Family Medicine 10/03/17 10/15/17 Breana Cain MD PCP - General 10/16/17 11/21/17 Nguyen Heath NP PCP - General Family Medicine 11/22/17 Ismael Moy MD [address] [facility] [place] [address] Consulting Physician Neurology 01/29/22 documented as of this encounter
--- OUTSIDE RECORDS SUMMARY | 2024-08-09 13:56 | XMS_ITS | Referral Summary ---
Author Organization [facility] Address [address] [place] [address] Care Team Providers Care Traffic Monitor Specialist Name Role Phone Nguyen Heath NP Primary Care Provider [phone] Ismael Moy MD Unavailable [phone] Encounters Date Type Department Care Team Description 08/08/2024 11:06 AM CONTRACTS LAW PROFESSOR - 08/08/2024 11:59 PM CONTRACTS LAW PROFESSOR Hospital Encounter [facility] [address] [place] [address] History of meningioma of the brain Discharge Disposition: Discharge to home or self care 08/01/2024 Telephone [facility] Primary Care at [address] [phone] Nguyen Heath NP 07/31/2024 Orders Only [facility] Primary Care at [address] [phone] Nguyen Heath NP Iron deficiency anemia secondary to inadequate dietary iron intake (Primary Dx) 07/30/2024 10:14 AM CONTRACTS LAW PROFESSOR - 07/30/2024 11:59 PM CONTRACTS LAW PROFESSOR Hospital Encounter [address] [address] Prediabetes; Primary hypertension; Mixed hyperlipidemia Discharge Disposition: Discharge to home or self care 07/30/2024 10:15 AM CONTRACTS LAW PROFESSOR Lab [facility] Outpatient Lab at [address] [phone] Primary hypertension (Primary Dx) 07/30/2024 9:30 AM CONTRACTS LAW PROFESSOR Office Visit [facility] Primary Care at [address] [phone] Nguyen Heath NP Annual physical [...] 07/30/2024 Assessment & Plan (07/30/2024 10:06 AM CONTRACTS LAW PROFESSOR): Went off daily inhaler due to cost. Restart advair. Continue albuterol prn History of meningioma of the brain 07/30/2024 Assessment & Plan (07/30/2024 10:05 AM CONTRACTS LAW PROFESSOR): Last MRI was 2022. Will order repeat MRI brain for surveillance she continues to have headaches, posterior/ occipital daily Dupuytren's contracture 07/30/2024 Assessment & Plan (07/30/2024 10:05 AM CONTRACTS LAW PROFESSOR): Left , 5th finger - referral to hand surgery, [facility] Mixed obsessional thoughts and acts 07/30/2024 Assessment & Plan (07/30/2024 10:21 AM CONTRACTS LAW PROFESSOR): OCD actions have worsened per patient. States [...] 11/24/2022 Assessment & Plan (07/30/2024 10:21 AM CONTRACTS LAW PROFESSOR): This was originally a physical. Health maintenance [...] PM CDT): Recommended she return to her polyethylene combiner for evaluation of the chronic left dry [...] Improved. 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 She needs updated referral to Dr. De La Cruz. Assessment & Plan (08/18/2022 12:20 PM CONTRACTS LAW PROFESSOR): She is neurology follow-up next week with Dr. Reyes. Will refer to [facility] Dr. De La Cruz, ENT specialist, Assessment & Plan (07/20/2022 3:33 PM CONTRACTS LAW PROFESSOR): This is a new problem. Having quite [...] physical Assessment & Plan (07/20/2022 3:37 PM CONTRACTS LAW PROFESSOR): Stable. Recheck A1c Class 2 obesity with body ma ss index (BMI) of 36.0 to 36.9 in adult 07/20/2022 Assessment & Plan (11/22/2022 12:38 PM CDT): BMI Follow-up includes: exercise counseling. Assessment & Plan (07/20/2022 3:38 PM CONTRACTS LAW PROFESSOR): BMI Follow-up includes: nutrition counseling. Meningioma, cerebral 02/23/2022 Assessment & Plan (02/23/2022 12:06 PM CDT): MRI reviewed. I encouraged patient to let Dr. Liu know that her MRI has been done and results are available in [facility]. Also let him know that she is having more vision changes in the right as well. I also recommended that if she would have any new concerning symptoms such as loss of function or loss of eyesight that I would recommend that she go to [facility] if she can transfer there Acute intractable headache 01/28/2022 Assessment & Plan (02/01/2022 4:10 PM CDT): Try using ibuprofen instead of tylenol. May use ice/heat applied to side of head when you have the intense pain. Pt stated tramadol did not help with pain. MRI with contrast ordered. Referral to Dr. Amy shaw at [facility] Referral to ophthalmology Continue on increased losartan 100mg daily. Keep bp diary, but don't dave it. Check in the am and pm or if you feel weird . Pt to f/u with Nguyen next week Benign head tremor 06/22/2021 Assessment & Plan (07/30/2024 10:20 AM CONTRACTS LAW PROFESSOR): Head tremor is not new. Documented back to 2020. She does not think that it is worsened Assessment & Plan (06/22/2021 10:52 AM CONTRACTS LAW PROFESSOR): Will refer back to Neurology for new symptom of head tremor Gastroesophageal reflux disease 12/15/2020 Tubular adenoma of colon 12/15/2020 Family history of breast cancer in mother 2019 Arthritis of right acromioclavicular joint 05/27 Overview (05/27/2019): Added automatically from request for surgery [id number] Mixed hyperlipidemia 10/04/2018 Assessment & Plan (09/26/2023 1:59 PM CDT): Lipid abnormalities are stable, reviewed previous lipid levels in [facility]. Pharmacotherapy as ordered. Order for lipid [...] January Assessment & Plan (07/20/2022 3:21 PM CONTRACTS LAW PROFESSOR): Lipid abnormalities are stable, reviewed previous lipid levels in [facility]. Pharmacotherapy as ordered. Order for lipid panel was given today to be obtained. Pt voiced understanding of lab drawn and continuation of current medication regimen. Assessment & Plan (01/10/2022 11:39 AM CDT): Lipid abnormalities are stable, reviewed previous lipid levels in [facility]. Pharmacotherapy as ordered. Order for lipid panel was given today to be obtained. Pt voiced understanding of lab drawn and continuation of current medication regimen. Assessment & Plan (06/22/2021 11:04 AM CONTRACTS LAW PROFESSOR): Lipid abnormalities are stable. Pharmacotherapy as ordered. Lipids will be reassessed in 6 months. Assessment & Plan (12/08/2020 10:05 AM CDT): Lipid abnormalities are stable, reviewed previous lipid levels in [facility]. Pharmacotherapy as ordered. Order for lipid panel was given today to be obtained. Pt voiced understanding of lab drawn and continuation of current medication regimen. Assessment & Plan (08/20/2020 9:13 AM CONTRACTS LAW PROFESSOR): Lipid abnormalities are stable. Pharmacotherapy as ordered. Lipids will be reassessed in 6 months. Assessment & Plan (12/23/2019 1:50 PM CDT): Lipid abnormalities are stable. Pharmacotherapy as ordered. Lipids will be reassessed in 6 months. Assessment & Plan (05/13/2019 11:21 AM CONTRACTS LAW PROFESSOR): Last lipid panel 09/2018 and was WNL. Continue currently medication, lipitor 20mg. Tolerating ok. F/u 6 months Assessment & Plan (10/08/2018 9:49 AM CDT): Due for repeat lab work Basal ganglia degeneration with calcification Assessment & Plan (05/07/2018 1:59 PM CONTRACTS LAW PROFESSOR): Basal ganglia calcification seen on MRI - will refer to neurology for evaluation TIA (transient ischemic attack) 05/02/2018 Assessment & Plan (02/13/2022 6:07 PM CDT): Continue risk factor reduction. Continue atorvastatin. Work on diet, increase exercise, weight reduction. Will be scheduling f/u with Dr. Reyes, neurology Assessment & Plan (08/20/2020 9:14 AM CONTRACTS LAW PROFESSOR): History of. Remains on statin Assessment & Plan (05/02/2018 1:32 PM CONTRACTS LAW PROFESSOR): Hx htn, tobacco use (cigarettes) Differential includes TIA, CVA, migraines, tumor, EKG shows NSR, no change from previous EKG's. Labs as ordered. CT head as soon as can be preauth and scheduled Carotid US Chronic right-sided thoracic back pain 8 Assessment & Plan (05/02/2018 10:56 AM CONTRACTS LAW PROFESSOR): Has had for 9 months, points to [...] is having some sinus headaches. We discussed [id number] medication such as Claritin D from the [...] deficiency Assessment & Plan (07/20/2022 3:21 PM CONTRACTS LAW PROFESSOR): History of. Has been stable. Will recheck CBC with labs Assessment & Plan (12/23/2019 1:49 PM CDT): Will recheck CBC. Pt states she is going to wait on labs as she doesn't have insurance but is hoping to get some later this year Assessment & Plan (05/13/2019 11:20 AM CONTRACTS LAW PROFESSOR): Using iron patches from the Internet. Will [...] management Assessment & Plan (07/20/2022 3:21 PM CONTRACTS LAW PROFESSOR): Stable/ Improved. Blood pressure is adequately controlled [...] ordered. Referral to Dr. Amy shaw at [facility] Referral to ophthalmology Continue on increased [...] management Assessment & Plan (06/22/2021 10:52 AM CONTRACTS LAW PROFESSOR): Stable/ Improved. Blood pressure is adequately controlled [...] management Assessment & Plan (08/20/2020 9:13 AM CONTRACTS LAW PROFESSOR): Stable on current medications. We will try [...] management Assessment & Plan (05/13/2019 11:20 AM CONTRACTS LAW PROFESSOR): Hypertension is improving with treatment. Regular aerobic [...] Anxiety Assessment & Plan (07/30/2024 10:22 AM CONTRACTS LAW PROFESSOR): Depression is controlled. Anxiety is worsening. We are changing out the sertraline for fluoxetine and having her follow up in 4-6 weeks Assessment & Plan (02/20/2023 10:29 AM CDT): Improving on current medication. Continue sertraline 100 mg as ordered. May follow up in 6 months Assessment & Plan (08/18/2022 12:24 PM CONTRACTS LAW PROFESSOR): Improved. Continue sertraline 150 mg once daily. Assessment & Plan (07/20/2022 3:26 PM CONTRACTS LAW PROFESSOR): Worsening. Will increase sertraline to 150 mg [...] recheck Assessment & Plan (08/20/2020 9:14 AM CONTRACTS LAW PROFESSOR): Currently stable on sertraline and quetiapine. Will continue current medications and have her follow-up in 6 months Assessment & Plan (05/13/2019 11:21 AM CONTRACTS LAW PROFESSOR): Continue zoloft and seroquel. Assessment & Plan [...] months Assessment & Plan (08/18/2022 12:20 PM CONTRACTS LAW PROFESSOR): Will refer to Sleep Medicine. Patient denies [...] ordered. Referral to Dr. Amy shaw at [facility] Referral to ophthalmology Continue on increased [...] in your mouth on an geni like [employer] Lower carb substitutions: [employer] carries a zero [...] in much longer they will become mushy [place] and/or coconut flour instead of regular flour [...] pork rinds For yogurt, try Two Good ukrainian yogurt Use Leander for recipe ideas. Type [...] (12/04/2020): Added automatically from request for surgery [id number] Family history of colon canc er requiring screening colonoscopy 12/04/2020 06/22/2021 Overview (12/04/2020): Added automatically from request for surgery [id number] Hx of colonic polyps 12/04/2020 022 Overview (12/04/2020): Added automatically from request for surgery [id number] Intractable migraine with status migrainosus 0 06/22/2021 [...] (05/27/2019): Added automatically from request for surgery [id number] Biceps tendinitis of right upper extremity 05/27/2019 12/23/2019 Overview (05/27/2019): Added automatically from request for surgery [id number] Mucopurulent chronic bronchitis 05/13/2019 12/23/2019 Assessment & Plan (05/13/2019 11:23 AM CONTRACTS LAW PROFESSOR): Will try doxycyline. If cough does not improve with a round of doxy, then discussed referral to wheel and axle inspector. Spell of generalized weakness 06/05/2018 01/10/2022 Vertigo [...] 06/22/2021 Assessment & Plan (06/05/2017 2:29 PM CONTRACTS LAW PROFESSOR): Questioning that pain is radiating from her [...] She had labs drawn at [facility] in [place]. We will try to obtain records. Reordered [...] surgery Assessment & Plan (08/20/2020 9:18 AM CONTRACTS LAW PROFESSOR): Exam was negative. She no longer has [...] on file Legal Sex Female 7:18 AM CONTRACTS LAW PROFESSOR Gender Identity Not on file Sexual Orientation Straight 03/15/2021 1: 30 PM CDT Last Filed Vital Signs Vital Sign Reading Time Taken Comments Blood Pressure 114/84 07/30/2024 9:31 AM CONTRACTS LAW PROFESSOR Pulse 65 07/30/2024 9:31 AM CONTRACTS LAW PROFESSOR Temperature 36.8 C (98.2 F) 07/30/2024 9:31 AM CONTRACTS LAW PROFESSOR Respiratory Rate 16 07/30/2024 9:31 AM CONTRACTS LAW PROFESSOR Oxygen Saturation 99% 07/30/2024 9:31 AM CONTRACTS LAW PROFESSOR Inhaled Oxygen Concentration - - Weight 104.2 kg (229 lb 12.8 oz) 07/30/2024 9:31 AM CONTRACTS LAW PROFESSOR Height 165.1 cm (5' 5 ) 07/30/2024 9:31 AM CONTRACTS LAW PROFESSOR Body Mass Index 38.24 07/30/2024 9:31 AM CONTRACTS LAW PROFESSOR Plan of Treatment Not on file Medical Devices Implanted Type Area Surveyor Rod Helper Device Identifier Shelf Expiration Date Model / Serial / Lot Depuy Mitek [id number] Healix Advance Br Orthocord 4.5mm 3 [place] Suture Sterile Latex Free - [id number] Implanted:Qty: 1 on 06/05/2019 by Evangelist Rosales MD at [facility] Right: Shoulder Depuy Mitek 03/25/2022 [id number] / / [id number] [employer] [id number] Swivelock C 4.75mm 19.1mm Closed Eyelet Vent [place] Suture - [id number] Implanted:Qty: 1 on 06/05/2019 by Evangelist Rosales MD at [facility] Right: Shoulder [employer] 03/25/2021 [id number] / / [id number] Procedures Procedure Name Priority Date/Time Associated Diagnosis Comments MRI BRAIN W WO CONTRAST Schedule Routine, Read Routine (OP Routine) 08/08/2024 12:17 PM CONTRACTS LAW PROFESSOR History of meningioma of the brain EGFR Routine 07/30/2024 10:14 AM CONTRACTS LAW PROFESSOR Mixed hyperlipidemia DIFFERENTIAL AUTO Routine 07/30/2024 10:14 AM CONTRACTS LAW PROFESSOR Primary hypertension Mixed hyperlipidemia CBC WITH AUTO DIFFERENTIAL Routine 07/30/2024 10:14 AM CONTRACTS LAW PROFESSOR Primary hypertension Mixed hyperlipidemia COMPREHENSIVE METABOLIC PANEL Routine 07/30/2024 10:14 AM CONTRACTS LAW PROFESSOR Mixed hyperlipidemia LIPID PANEL Routine 07/30/2024 10:14 AM CONTRACTS LAW PROFESSOR Mixed hyperlipidemia THYROID FUNCTION CASCADE Routine 07/30/2024 10:14 AM CONTRACTS LAW PROFESSOR Primary hypertension HEMOGLOBIN A1C Routine 07/30/2024 10:14 AM CONTRACTS LAW PROFESSOR Prediabetes PAP AND HPV, REFLEX TO HPV GENOTYPES Routine 03/02/2023 10:43 AM CDT Well woman exam SCREENING MAMMOGRAM BILATERAL W TAWANDA Schedule Routine, Read Routine (OP Routine) 02/01/2023 1:15 PM CDT Screening mammogram, encounter for COLONOSCOPY 01/25/2023 8:36 AM CDT HEPATITIS C RNA, QUANTITATIVE, PCR Routine 05/27/2019 11:48 AM CONTRACTS LAW PROFESSOR Positive hepatitis C antibody test from Last 3 Months or Most Recently Relevant to Health Maintenance Results * MRI Brain W WO Contrast (08/08/2024 12:17 PM CONTRACTS LAW PROFESSOR) Anatomical Region Laterality Modality Head and Neck N/A Magnetic Resonan ce 08/08/2024 12:2 7 PM CONTRACTS LAW PROFESSOR Narrative 08/08/2024 1:14 PM CONTRACTS LAW PROFESSOR EXAM DESCRIPTION: MRI BRAIN W WO CONTRAST [...] Tobias Wadsworth D.O. AP: SUSHIL Report ID: [id number] Reading Location: [id number] Procedure Note Tobias Wadsworth, DO - 08/08/2024 [...] cm and right lateral vertex 0.9 cm ([id number], image 25). Please correlate with physical examination. [...] Tobias Wadsworth D.O. AP: SUSHIL Report ID: [id number] Reading Location: [place] [address] us Nguyen Heath NP IMG MRI PROCEDURES Final Result * eGFR (07/30/2024 10:14 AM CONTRACTS LAW PROFESSOR) eGFR >90 >=60 mL/min/1. 73 m2 Comment: [...] reviewed 2021. Blood 07/30/2024 10:1 4 AM CONTRACTS LAW PROFESSOR 07/30/2024 3:17 PM CONTRACTS LAW PROFESSOR us Nguyen Heath NP LAB BLOOD ORDERABLES Final Resul t [facility] [address] Department [place] [address] * (ABNORMAL) Differential, auto (07/30/2024 10:14 AM CONTRACTS LAW PROFESSOR) Neutrophil abs 5.3 1.5 - 6.5 K/cumm Imm gran abs 0.0 0.0 - 0.1 K/cumm [facility] Lymphocyte abs 2.4 0.8 - 3.3 K/cumm [facility] Monocyte abs 1.0(H) 0.2 - 0.8 K/cumm [facility] Eosinophil abs 0.2 0.0 - 0.5 K/cumm [facility] Basophil abs 0.1 0.0 - 0.1 K/cumm [facility] Neutrophil pct 58.9 % [facility] Comment: Interpretive Data Percent cell count reference ranges are not reported, since discordance with absolute values may lead to misinterpretation of CBC data. Current Interpretive Data was last revised on 2017. Imm gran pct 0.4 % [facility] Comment: Interpretive Data Percent cell count reference ranges are not reported, since discordance with absolute values may lead to misinterpretation of CBC data. Current Interpretive Data was last revised on 2017. Lymphocyte pct 26.1 % [facility] Comment: Interpretive Data Percent cell count reference ranges are not reported, since discordance with absolute values may lead to misinterpretation of CBC data. Current Interpretive Data was last revised on 2017. Monocyte pct 11.1 % [facility] Comment: Interpretive Data Percent cell count reference ranges are not reported, since discordance with absolute values may lead to misinterpretation of CBC data. Current Interpretive Data was last revised on 2017. Eosinophil pct 2.3 % [facility] Comment: Interpretive Data Percent cell count reference ranges are not reported, since discordance with absolute values may lead to misinterpretation of CBC data. Current Interpretive Data was last revised on 2017. Basophil pct 1.2 % [facility] Comment: Interpretive Data Percent cell count reference ranges are not reported, since discordance with absolute values may lead to misinterpretation of CBC data. Current Interpretive Data was last revised on 2017. Blood 07/30/2024 10:1 4 AM CONTRACTS LAW PROFESSOR 07/30/2024 3:08 PM CONTRACTS LAW PROFESSOR us Nguyen Heath NP LAB BLOOD ORDERABLES Final Resul t [facility] [address] Department [place] [address] * Thyroid Function [place] (07/30/2024 10:14 AM CONTRACTS LAW PROFESSOR) TSH 1.27 0.30 - 4.20 mcIUnit/mL Blood 07/30/2024 10:1 4 AM CONTRACTS LAW PROFESSOR 07/30/2024 3:08 PM CONTRACTS LAW PROFESSOR Nguyen Heath NP LAB BLOOD ORDERABLES Final Resul t Performing Organization Address City/[facility] Co de Phone Number [facility] [address] [address] * (ABNORMAL) CBC with auto differential (07/30/2024 10:14 AM CONTRACTS LAW PROFESSOR) Pathologist [facility] WBC 9.0 3.8 - 9.9 K/cumm Hgb 9.9(L) 11.9 - 15.5 g/dL [facility] Hct 34.2(L) 35.6 - 45.5 % [facility] Plt 451(H) 150 - 400 K/cumm [facility] MPV 10.2 9.1 - 12.3 fL [facility] RBC 4.60 3.90 - 5.20 M/cumm [facility] MCV 74.3(L) 81.3 - 96.4 fL [facility] MCH 21.5(L) 27.1 - 33.3 pg [facility] MCHC 28.9(L) 32.3 - 35.7 g/dL [facility] RDW CV 17.9(H) 11.1 - 14.9 % [facility] RDW SD 47.4 35.7 - 48.1 fL [facility] NRBC abs 0.00 0.00 - 0.01 K/cumm [facility] Blood 07/30/2024 10:1 4 AM CONTRACTS LAW PROFESSOR 07/30/2024 3:08 PM CONTRACTS LAW PROFESSOR Nguyen Heath NP LAB BLOOD ORDERABLES Final Resul t Performing Organization Address City/[facility]/ZIP Co de Phone Number [facility] [address] [place] [address] * (ABNORMAL) Hemoglobin A1c (07/30/2024 10:14 AM CONTRACTS LAW PROFESSOR) Hgb A1C 5.9(H) 4.0 - 5.6 % Estimated Average Glucose 123 mg/dL [facility] Comment: The ADA recommends reporting an estimated Average Glucose (eAG) with all Hemoglobin A1c results using the equation derived from a study of 507 normal and diabetic adults. Minority populations were underrepresented and children were not included. (Diabetes Care 31:1776-2530, 2008). The eAG is not equivalent to a fasting glucose. Blood 07/30/2024 10:1 4 AM CONTRACTS LAW PROFESSOR 07/30/2024 3:08 PM CONTRACTS LAW PROFESSOR us Nguyen Heath NP LAB BLOOD ORDERABLES Final Resul t [facility] [address] Department [place] [address] * (ABNORMAL) Lipid panel (07/30/2024 10:14 AM CONTRACTS LAW PROFESSOR) Cholesterol 212(H) 30 - 199 mg/dL Comment: [...] [facility] Blood 07/30/2024 10:1 4 AM CONTRACTS LAW PROFESSOR 07/30/2024 3:08 PM CONTRACTS LAW PROFESSOR us Nguyen Heath NP LAB [place]LO[place] [address] [address] Department [place] [address] * (ABNORMAL) Comprehensive metabolic panel (07/30/2024 10:14 AM CONTRACTS LAW PROFESSOR) Sodium 137 135 - 145 mmol/L Potassium, [...] [facility] Blood 07/30/2024 10:1 4 AM CONTRACTS LAW PROFESSOR 07/30/2024 3:08 PM CONTRACTS LAW PROFESSOR us Nguyen Heath NP LAB BLOOD ORDERABLES Final Resul t [facility] [address] Department [place] [address] * Pap and HPV, reflex to HPV Genotypes (03/02/2023 10:43 AM CDT) CLINICAL INFORMATION: [facility] Comment:None given LMP [facility] Comment:NONE GIVEN Previous Pap [facility] Comment:NONE GIVEN Prev. Bx [facility] Comment:NONE GIVEN SOURCE: [facility] Comment:Cervix, Endocervix Pap, specimen adequacy [facility] Comment: Satisfactory for evaluation. Endocervical/transformation zone component present. HPV interp [facility] Comment: Cytology Results: Negative for intraepithelial lesion or malignancy. Deckhand Que [facility] Comment: BKA, CT(ASCP) CT screening location: [place] [address] [place] [address] Comment [facility] Comment: EXPLANATORY NOTE: The Pap is [...] Client Letter) showing TIS test codes, see www.Shoulder Tap/Resources, and navigate to Well-Woman>Physician Materials>TIS Client Letter. You can also call for test code assistance. Human papillomavirus DNA, High Risk E6/E7 Not Detected NOT DETECTED [employer] Comment: Not Detected High Risk HPV types (16,18,31,33,35,39,45,51,52, 56,58,59,66,68) were not detected. Other HPV types which cause anogenital lesions may be present. The significance of the other types of HPV in malignant processes has not been established. Methodology: Real Time PCR Thin prep 03/02/2023 10:4 3 AM CDT 03/03/2023 2:36 AM CDT Tia Driscoll [employer] LAB CYTOLOGY ORDERABLES Fin al Result [facility] [address] [place] [address] [employer]/Danika [facility] [address] [facility] [place] [address] * Screening Mammogram Bilateral W [place] (02/01/2023 [...] 01/25/2023 8:[address] [facility] Patient Name: Yue Michelle Procedure Date: 01/25/2023 8:36 AM Date of : 1960 Admit Type: Outpatient Age: 62 Gender: Female Attending MD: Amanda Anaya M.D. Room: [facility] ENDOSCOPY ROOM 1 Note Status: Finalized Patient [...] under direct vision. The Pediatric Colonoscope [id number] was introducedthrough the anus and advanced to [...] 8:36 AM Procedure Code(s): --- Professional --- 83307, Colonoscopy, flexible; diagnostic, including collection of specimen(s) by brushing or washing, when performed (separateprocedure) Diagnosis Code(s): --- Professional --- Z80.0, Family history of malignant neoplasm of digestive organs Z86.010, Personal history of colonic polyps K64.8, Other hemorrhoids K57.30, Diverticulosis of large intestine without perforation orabscess without bleeding CPT copyright 2020 [employer]. All rights reserved. The codes documented in this report are preliminary and upon assistant football coach reviewmay be revised to meet current compliance requirements. Recognized by the [employer] [employer] for promoting quality in endoscopy Amanda Anaya MD ENDOSCOPY PROCEDURES Final Result * Hepatitis C (HCV) RNA PCR, quantitative (05/27/2019 11:48 AM CONTRACTS LAW PROFESSOR) HCV RNA qn Undetected Undetected IUnits/mL BRIDGETTE HERNÁNDEZ ([place]) Comment: Result in log IU/mL is Undetected. ADDITIONAL INFORMATION The quantification range of this assay is 15 to 100,000,000 IU/mL (1.18 log to 8.00 log IU/mL). Testing was performed using the mando HCV test ([employer] with the mando [id number] System. Test Performed by: [place] [address] Immigration Guard: Huber Haney M.D. Ph.D.; CLIA# [id number] Blood specimen (specimen) 05/27/2019 11:48 AM CONTRACTS LAW PROFESSOR 05/27/2019 2:22 PM CONTRACTS LAW PROFESSOR Nguyen Heath NP LAB MICROBIOLOGY - GENERAL ORDER LUIS Final Result BRIDGETTE HERNÁNDEZ ([place]) [address] [facility] Department [place] [address] from Last 3 Months or Most Recently Relevant to Health Maintenance Insurance [place] ID[place] Advance Directives For more information, please contact: [phone] * Full Code (Latest Code Status on [...] 12:12 PM 02/25/2021 7:06 PM Care Teams Traffic Monitor Specialist Relationship Specialty Start Date End Date Nguyen Heath NP PCP - General Family Medicine 11/22/17 Ismael Moy MD [address] [place] [address] [place] [address] Consulting Physician Neurology 01/29/22
--- OUTSIDE RECORDS SUMMARY | 2024-08-09 13:56 | XMS_ITS | Encounter Summary ---
Author Organization [facility] Address [address] [facility] [address] [place] [address] Care Team Providers Care Processing Talc And Borate Supervisor Name Role Phone Con Del Rosario MD Primary Care Provider + [phone] Con Del Rosario MD Primary Care Provider + [phone] Con Del Rosario MD Primary Care Provider + [phone] Unknown, Notinfile Primary Care Provider Unavail able Nguyen Heath NP Primary Care Provider Breana Cain MD Primary Care Provide r Nguyen Heath DESIGN INSERTER Primary Care Provider Breana Cain MD Primary Care Provide r Nguyen Heath NP Primary Care Provider [phone] Ismael Moy MD Unavailable [phone] Encounter Details Date Type Department Care Team (Late st Contact Info) Description 07/05/2013 Orders Only [facility] Health Information Management [address] [place] [address] Scanning, Provider Social History Tobacco Use Types Packs/Day Years Used Date Smoking Tobacco: Some Days Alcohol Use Standard Drinks/Week Comments No 0 (1 standard drink = 0.6 oz pur e alcohol) Comments Unknown Sex and Gender Information Value Date Recorded Sex Assigned at Not on file 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 Gender Identity Not on file Sexual Orientation [...] on filedocumented in this encounter Care Teams Processing Talc And Borate Supervisor Relationship Specialty Start Date End Date Con Del Rosario MD [address] [facility] [address] [place] [address] PCP - General 09/23/16 11/24/16 Con Del Rosario MD [address] [facility] [address] [place] [address] PCP - General 08/20/16 09/22/16 Con Del Rosario MD [address] [facility] [address] [place] [address] PCP - General 07/31/06 08/19/16 Unknown, Notinfile PCP - General 11/25/16 02/08/17 Nguyen Heath NP PCP - General 02/09/17 09/28/17 Breana Cain MD PCP - General 09/29/17 10/02/17 Nguyen Heath NP PCP - General Family Medicine 10/03/17 10/15/17 Breana Cain MD PCP - General 10/16/17 11/21/17 Nguyen Heath NP PCP - General Family Medicine 11/22/17 Ismael Moy MD [address] [place] [address] [place] [address] Consulting Physician Neurology 01/29/22 documented as of this encounter
--- OUTSIDE RECORDS SUMMARY | 2024-08-09 13:56 | XMS_ITS | Clinical Summary ---
Author Organization [facility] Administrative Offices Address [address] [place] [id number] Care Team Providers Care Air Conditioning Supervisor Name Role Phone Heath, Nguyen Barahona [facility] Primary Care Provider [phone] Family History Medical History Relation Name Comments [...] OR WO CAD Routine 05/31/2019 2:45 PM PLASTERING CONTRACTOR Visit for screening mammogram from Last 3 Months or Most Recently Relevant to Health Maintenance Results * MAMMO SCREEN BILAT W OR WO CAD (05/31/2019 2:45 PM PLASTERING CONTRACTOR) Anatomical Region Laterality Modality Breast Bilateral Mammography 05/31/2019 2:46 PM PLASTERING CONTRACTOR Impressions 06/03/2019 10:42 AM PLASTERING CONTRACTOR IMPRESSION: No mammographic evidence of malignancy. RECOMMENDATIONS: Routine screening mammogram in one year. DICTATION LOCATION: [facility] 06/03/2019 10:42 AM PLASTERING CONTRACTOR BILATERAL FULL-FIELD DIGITAL SCREENING MAMMOGRAM WITH CAD [...] screening mammogram in one year. DICTATION LOCATION: [facility] Francis Zuniga MD MAMMO ORDERABLES Final Result from Last 3 Months or Most Recently Relevant to Health Maintenance Insurance [place] [id number] Care Teams Air Conditioning Supervisor Relationship Specialty Start Date End Date Nguyen Heath FNP PCP - General Nurse Practitioner Family 05/30/19
[2024-08-09 14:16] VITALS: BP 120/81; PULSE 97; RESP 20; O2SAT 97
== END 2024-08-09 14:16 | disposition home or self-care (01) ==
PROVIDERS: Emergency Provider Emergency Medicine
DX: R10.32 Left lower quadrant pain (principal); I10 Essential (primary) hypertension
CPT/HCPCS: 96372; 99283; J1885